=== PATIENT | male | born 1960 | race Caucasian/White ===

== ENCOUNTER 2024-01-12 09:59 | Outpatient (CLI) | payer BC, SELFPAY ==
[2024-01-12 10:37] LABS: Hematocrit 43.1 % (42.0-52.0); Hemoglobin 14.7 g/dL (14.0-18.0); Immature Platelet Fraction Pct 10.3 % (0.9-11.2); Mean Corpuscular HGB Conc 34.1 g/dl (32-36); Mean Corpuscular Hemoglobin 34.9 pg (26-34); Mean Corpuscular Volume 102.4 fl (80-100); Platelet Count Result 106 k/mm3 (150-375); Red Blood Count 4.21 M/mm3 (4.6-6.20); Red Cell Distribution Width 18.6 % (11.5-14.5); White Blood Count 13.5 K/mm3 (4.5-10.0)
[2024-01-12 10:47] LABS: Anisocytosis 1+; Band Neutrophils Percent 6 % (0-6); Lymphocytes Absolute Manual 2.16 K/mm3 (1.1-4.5); Monocytes Percent Manual 3 % (3-9); Neutrophils Absolute Manual 10.93 K/mm3 (1.3-6.7); Neutrophils Percent Manual 75 % (46-73); Nucleated Red Blood Cells 1 %; Platelet Estimate Decreased (Adequate); Schistocytes None Seen; Total Cells Counted 100
[2024-01-12 10:48] LABS: Microcytosis 1+ (NORMAL)
[2024-01-12 11:16] LABS: Anion Gap 13 mmol/L (4-12); Blood Urea Nitrogen 14 mg/dL (9-20); Calcium 9.2 mg/dL (8.4-10.2); Carbon Dioxide 22 mmol/L (22-30); Chloride 93 mmol/L (98-107); Estimated Glomerular Filt Rate 47; Glucose 78 mg/dL (65-110); Potassium 4.1 mmol/L (3.4-5.0); Sodium 128 mmol/L (137-145)
== END 2024-01-12 10:00 | disposition home or self-care (01) ==
LOC: ANHLAB 10:07
PROVIDERS: Visit Provider Internal Medicine Hematology & Oncology
DX: D72.829 Elevated white blood cell count, unspecified (principal); D45 Polycythemia vera
CPT/HCPCS: 36415; 80048; 85025; 85055; 88184

== ENCOUNTER 2024-02-11 03:15 | Day surgery (SDC) | payer BC, SELFPAY ==
[2024-02-10 15:59] VITALS: BMI 27.5
--- NOTE | ~2024-02-11 | BM_ITS ---
EXAMINATION: CCL bone marrow asp w bx diag ORDER COMPLETED DATE: 02/11/2024 10:20 INDICATION: Leukocytosis TECHNIQUE: A time-out was performed to verify the patient's name, date of , and procedure to b e performed. The procedure including the risks and benefits was discussed with the patient. Risks dis cussed included bleeding, infection, nerve injury and allergic reaction. The patient understood the r isks and agreed to proceed. The skin overlying the right posterior iliac spine was prepped and draped in usual sterile fashion. Anesthetic was administered with 1% lidocaine subcutaneously. Moderate co nscious sedation was achieved with 50 mcg fentanyl IV. An 11 gauge needle was inserted into the left ilium with fluoroscopic guidance. Bone marrow was aspirated. An 8 gauge needle was then inserted into the left ilium with fluoroscopic guidance. A core bone marrow biopsy was obtained. The needle was re moved and the entry site was cleaned and dressed. There were no immediate complications. A total of 7 fluoroscopic images were recorded. Fluoroscopy exposure time was 0.1 minutes. Total DAP was 105 mGy cm^2 FINDINGS: Real-time fluoroscopy demonstrates the biopsy needle tip overlying the left posterior iliac spine. IMPRESSION: 1. Successful fluoroscopic guided bone marrow aspiration. 2. Successful fluoroscopic guided bone marrow biopsy. Reviewed, dictated and finalized at location A.
[2024-02-11 08:58] VITALS: BP 134/67; PULSE 56; RESP 12; TEMP 36.5; O2SAT 100
[2024-02-11 09:12] LABS: Hematocrit 38.5 % (42.0-52.0); Hemoglobin 13.2 g/dL (14.0-18.0); Mean Corpuscular HGB Conc 34.3 g/dl (32-36); Mean Corpuscular Hemoglobin 34.4 pg (26-34); Mean Corpuscular Volume 100.3 fl (80-100); Mean Platelet Volume 10.2 fl (7.4-10.4); Platelet Count Result 237 k/mm3 (150-375); Red Blood Count 3.84 M/mm3 (4.6-6.20); Red Cell Distribution Width 17.5 % (11.5-14.5); White Blood Count 13.4 K/mm3 (4.5-10.0)
[2024-02-11 09:21] LABS: INR 1.3; Prothrombin Time 16.2 Seconds (11.1-14.7)
--- NOTE | 2024-02-11 09:48 | WPDMODSED ---
Moderate Sedation Note-Pt Data Patient Data Diagnosis: thrombocytopenia Present Complaint: thrombocytopenia Procedure to be performed/Plan: bone marrow biospy Allergies Allergy/AdvReac Type Severity Reaction Status Date / Time Sulfa (Sulfonamide Allergy Unknown Unknown Verified 10/29/17 09:50 Antibiotics) sulfamethizole Allergy Unknown Unknown Verified 10/29/17 09:50 trimethoprim Allergy Unknown Unknown Verified 10/29/17 09:50 Home Medications Medication Instructions Recorded Confirmed Type amlodipine 10 mg tablet 10 mg PO DAILY 02/10/24 02/10/24 History lisinopril 10 mg tablet 10 mg PO DAILY 02/10/24 02/10/24 History metoprolol tartrate 50 mg tablet 50 mg PO BID 02/10/24 02/10/24 History zolpidem 10 mg tablet 10 mg PO QHS 02/10/24 02/10/24 History Sedation/Anesthesia: No previous sedation/anesthesia problems (including family history). [facility] Social History Social History Smoking status: Unknown if ever smoked Alcohol intake: unknown Substance use: never Substance use type: does not use Mod Sed Physical Exam Physical Exam Pre Procedural Exam: Normal: Appearance, Airway, Lungs, Heart Rate and Heart Rhythm Hours since solid foods: 11 Hours since liquid intake: 11 Mallampati Classification: class III Internal Medicine - PN: Obj Da Vital Signs Vital Signs: Vital Signs - 24 hr 02/11/24 08:58 Temperature 97.7 F Pulse Rate 56 L Respiratory Rate 12 Blood Pressure 134/67 Pulse Oximetry 100 Oxygen Delivery Room Air Labs 02/11/24 08:54 Labs: Laboratory Results - last 24 hr 02/11/24 08:54 WBC 13.4 H RBC 3.84 L Hgb 13.2 L Hct 38.5 L MCV 100.3 H MCH 34.4 H MCHC 34.3 RDW 17.5 H Plt Count 237 D MPV 10.2 Immature Gran % (Auto) Not Reportable Neut % (Auto) Not Reportable Lymph % (Auto) Not Reportable [place] % (Auto) Not Reportable Eos % (Auto) Not Reportable Baso % (Auto) Not Reportable Lymph # (Auto) Not Reportable [place] # (Auto) Not Reportable Eos # (Auto) Not Reportable Baso # (Auto) Not Reportable Abs Immat Gran (auto) Not Reportable Absolute Neuts (auto) Not Reportable Absolute Nucleated RBC Not Reportable Nucleated RBC % Not Reportable PT 16.2 H INR 1.3 ASA Classification/Sedation ASA Classification/Sedation ASA Class: II Emergent: No Risks: Risks, benefits and alternatives explained and patient/family accepted plan for sedation. Patient re-evaluated immediately prior to sedation.
[2024-02-11 10:15] VITALS: BP 136/67; PULSE 64; RESP 19; O2SAT 100
[2024-02-11 10:24] LABS: Band Neutrophils Percent 5 % (0-6); Lymphocytes Percent Manual 12 % (18-44); Monocytes Absolute Manual 0.67 K/mm3 (0.1-0.90); Monocytes Percent Manual 5 % (3-9); Neutrophils Absolute Manual 10.31 K/mm3 (1.3-6.7); Neutrophils Percent Manual 72 % (46-73); Total Cells Counted 100
[2024-02-11 10:25] LABS: Anisocytosis 1+; Atypical Lymphocytes Present; Basophils Absolute Manual 0.53 K/mm3 (0.0-0.1); Basophils Percent Manual 4 % (0-1); Eosinophils Absolute Manual 0.13 K/mm3 (0.02-0.50); Eosinophils Percent Manual 1 % (0-4); Hypochromasia 1+; Platelet Estimate Adequate (Adequate); Promyelocytes Percent 1 %; Schistocytes None Seen
[2024-02-11 10:30] VITALS: BP 119/62; PULSE 61; RESP 14; O2SAT 100
[2024-02-11 10:45] VITALS: BP 122/65; PULSE 62; RESP 14; O2SAT 100
[2024-02-11 11:00] VITALS: BP 136/66; PULSE 61; RESP 13; O2SAT 100
== END 2024-02-11 11:25 | disposition home or self-care (01) ==
PROVIDERS: PCP Registered Nurse; Referring Provider Internal Medicine Hematology & Oncology; Visit Provider Radiology Diagnostic Radiology
DX: D47.1 Chronic myeloproliferative disease (principal)
CPT/HCPCS: 36415; 38222; 85025; 85610; 88305; 88311; 88313; J1642; J3010; J7040

== ENCOUNTER 2025-01-18 08:25 | Outpatient (CLI) | payer BC, SELFPAY ==
--- NOTE | ~2025-01-18 | US_ITS ---
EXAMINATION: US abdomen complete, 01/18/2025 8:28 CDT HISTORY: Elevated liver enzymes COMPARISON: None Technique: Lazo-scale and color Doppler images were obtained. Findings: LIVER: Mild increased echogenicity of the liver. The liver appears nodular. . GALLBLADDER/BILIARY: Minimal cholelithiasis however normal thickening or pericholecystic fluid. CBD 3.6 mm. [place] sign negative. PANCREAS: Pancreas limited by bowel gas. SPLEEN: Spleen is enlarged measuring 21 cm.. KIDNEYS: Right Kidney: Right kidney 10 x 5 x 5.7 cm, normal. Left Kidney: Left kidney 10.8 x 4.1 x 4.3 cm, normal. AORTA: Normal caliber aorta. IVC: Unremarkable. FREE FLUID: Moderate ascites noted.. Impression: 1. Mild cirrhotic disease of the liver suspected with ascites. Correlate with LFTs. MRI may be of benefit. 2. Minimal cholelithiasis with wall thickening which may be reactive, there is concern for acute cholecystitis nuclear medicine HIDA scan suggested. 3. Splenomegaly Reviewed, dictated and finalized at location A. Impression: 1. Mild cirrhotic disease of the liver suspected with ascites. Correlate with L FTs. MRI may be of benefit. 2. Minimal cholelithiasis with wall thickening which may be reactive, there is concern for acute cholecystitis nuclear medicine HIDA scan suggested. 3. Splenomegaly
== END 2025-01-18 08:26 | disposition home or self-care (01) ==
LOC: MICIMG 08:26
PROVIDERS: PCP Registered Nurse; Visit Provider Internal Medicine Hematology & Oncology
DX: R74.8 Abnormal levels of other serum enzymes (principal); R16.1 Splenomegaly, not elsewhere classified
CPT/HCPCS: 76700

== ENCOUNTER 2025-01-25 13:12 | Outpatient (CLI) | payer BC, SELFPAY ==
--- OUTSIDE RECORDS SUMMARY | 2025-01-25 11:15 | XMS_ITS | Encounter Summary ---
Author Organization [facility] Address [address] [place] [address] Care Team Providers Care Metal Pickling Equipment Operator Name Role Phone Unavailable Primary Care Provider Unavailabl e Reason for Referral * Eval and Treat (Routine) - Open Specialty Diagnoses / Procedures Referred By Farrah t Referred To Contact Nephrology Diagnoses Renal insufficiency Procedures NV OFFICE/OUTPATIENT ESTABLISHED MOD MDM 30 MIN NV OFFICE/OUTPATIENT NEW MODERATE MDM 45 MINUTES Efren Serrano MD [address] [place] [phone] Phone: tel: fax: Art Donohue MD [address] [facility] [address] [place] [address] Phone: tel: fax: Referral ID Status Reason Start Date Expiration Date V isits Requested Visits Authorized [id number] Open STL CTS 01/25/2025 01/25/2026 1 1 * Laboratory Services (Routine) - Open Specialty Diagnoses / Procedures Referred By Farrah t Referred To Contact Diagnoses Leukocytosis, unspecified type Procedures BCR/ABL1, QUANTITATIVE W/REFLEX Efren Serrano MD [address] [place] [address] Phone: tel: fax: Referral ID Status Reason Start Date Expiration Date Visits Re quested Visits Authorized [id number] Open 01/25/2025 02/25/2026 1 1 Reason for Visit * Reason Comments Follow Up Encounter Details Date Type Department Care Team (Late st Contact Info) Description 01/25/2025 11:15 AM CDT Office Visit [facility] Oncology and Hematology - [place] [address] [facility] [address] [place] [address] Efren Serrano MD [address] [facility] [address] [place] [address] Leukocytosis, unspecified type (Primary Dx); Renal insufficiency Social History Tobacco Use Types Packs/Day Years Used Date Smoking Tobacco: Former Cigarettes Q uit: 12/23/1997 Smokeless Tobacco: Never Tobacco Cessation:Counseling Given: Not Answered Alcohol Use Standard Drinks/Week Comments Yes 0 (1 standard drink = 0.6 oz pur e alcohol) Sex and Gender Information Value Date Recorded Sex Assigned at Not on file 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 Gender Identity Not on file Sexual Orientation Not on file documented as of this encounter Last Filed Vital Signs Vital Sign Reading Time Taken Comments Blood Pressure 113/73 01/25/2025 11:39 AM CDT Pulse 55 01/25/2025 11:39 AM CDT Temperature 36.2 C (97.1 F) 01/25/2025 11:39 AM CDT Respiratory Rate 16 01/25/2025 11:3 9 AM CDT Oxygen Saturation 93% 01/25/2025 11: 39 AM CDT Inhaled Oxygen Concentration - - Weight 101.4 kg (223 lb 9.6 oz) 025 11:39 AM CDT Height - - Body Mass Index 27.95 11/07/2021 11:03 AM CDT documented in this encounter Progress Notes * Efren Serrano MD - 01/25/2025 1:04 PM CDT HEMATOLOGY / ONCOLOGY PROGRESS NOTE Patient Identification: Name: Len Lynn Age: 64 y.o. Sex: male : 1960 DIAGNOSIS Essential thrombocythemia with Tor 2 mutation positive CURRENT TREATMENT Surveillance TREATMENT HISTORY Hydroxyurea started April 2018. Discontinued December 2023 due to low platelet count Bone marrow aspiration and biopsy done on February 11, 2024 showed no evidence of acute leukemia. 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 SUBJECTIVE Patient came to the office for follow-up visit. Since the last discharge patient has lost appetite and gained some weight. He was hospitalized in November and had colonoscopy and CT scan done. He is quite tired and lethargic. Denies any bleeding and bruising. He was restarted on hydroxyurea 6 weeks agoin the hospital. No other new complaints. Review of system Constitutional: denies fevers, sweats, complain of tiredness and fatigue HEENT: denies sinus congestion, hearing or vision problems Respiratory: denies cough, dyspnea, wheeze Cardiovascular: denies chest pain, exertional chest pressure/discomfort, nausea, syncope, shortnessof breath GI: denies constipation, diarrhea, dsyphagia, reflux symptoms, vomiting, melena : denies dysuria, frequency, incontinence, urgency Integumentary system: no lymphadenopathy, sweats, flushing Musculoskeletal: Denies any musculoskeletal discomfort Neurological: denies blurry or disturbed vision, numbness/weakness, dizziness Skin: No lumps, denies any rash 12 point review of system was reviewed Objective: Vital signs in last 24 hours: As per nursing note Exam: General appearance: alert, cooperative, no distress, appears stated age Head: normocephalic, without obvious abnormality, atraumatic Eyes: conjunctivae/corneas clear, EOM's intact Ears: normal external ear canals AU Nose: Nares normal. Septum midline. Mucosa normal. No drainage or sinus tenderness Throat: Lips, mucosa, and tongue normal. Teeth and gums normal Neck: supple, symmetrical, trachea midline. Lungs: clear to auscultation bilaterally Heart: regular rate and rhythm, S1, S2 normal, no murmur, click, rub or gallop Abdomen: soft, non-tender. Bowel sounds normal. No masses, No organomegaly Extremities: extremities normal, atraumatic, no cyanosis or edema Skin: Skin color, texture, turgor normal. No rashes or lesions Lymph nodes: No lymphadenopathy Neuro: No obvious focal deficit Exam as above LABS Labs from March 04 showed WBC 6.5 hemoglobin 18.9 hematocrit 53.1 platelet 325,000. Labs from September 03 showed WBC 7.8 hemoglobin 14.3 hematocrit 40.9 platelet 505,000. Labs from March 08 showed creatinine 1.3 WBC 6.1 hemoglobin 14.8 platelet 302,000 Labs from September 24, 2020 showed WBC 5.2 hemoglobin 15.7 platelet 432,000. Labs from March 21 showed creatinine 1.2 total bilirubin 3.7 AST 39 WBC 5.5 hemoglobin 15.5 hematocrit 43 platelet 318,000. Labs from November 05 showed creatinine 1.4 WBC 7.9 hemoglobin 17.1 hematocrit 50.2 platelet 487,000. Labs from May 14 showed creatinine 1.48 total bilirubin 1.5 hematocrit 42.9 platelet 520,000 Labs from November 18 showed creatinine 1.1 WBC 4.2 hemoglobin 15.7 hematocrit 46 platelet 290,000 We will labs from May 15 showed platelet 241,000 hemoglobin 13.5 bilirubin 1.9 AST and ALT normal. Labs from December 17 showed creatinine 1.2 total bilirubin 2.2 sodium 127 WBC 12.7 hemoglobin 13.7 hematocrit 42.2 platelet 138,000 absolute neutrophil count 8039 elevated metamyelocyte of 127 myelocyte of 521 and basophil of 775 Labs from January 03 showed BCR ABL translocation not detected WBC 13.5 hemoglobin 14.7 platelet 106,000 neutrophils 75% lymphocyte 16% bands 6% monocyte 3% Labs from June 03. Creatinine 1.4 hemoglobin 13 WBC 15 platelet 240,000 Labs from September 22 showed WBC 12.8 hemoglobin 12.3 platelet 157,000 there was 1 blast bilirubin 3.2 ferritin 138 LDH 523 B12 667 Labs from January 20 showed creatinine 2.0 hemoglobin 8.9 WBC 23.6 platelet 362,000 neutrophils 67% band 1 Assessment: Plan: Patient Active Problem List Diagnosis Date Noted PV (polycythemia vera) ([facility]/HCC) 09/07/2019 Thrombocytosis 12/23/2017 Essential thrombocythemia with Tor 2 mutation positive. Hydroxyurea has been discontinued on December 2023 due to low platelet count. BCR-ABL translocation not detected. Flow cytometric analysis showed 2% myeloblasts. Bone marrow aspiration and biopsy done on February 11, 2024 showed no evidence of acute leukemia. 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 Events noted. He was hospitalized in November and restarted on hydroxyurea at that time. He is quite tired and fatigued. Labs showed normal platelet counts but significant worsening of anemia and leukocytosis. Patient had CT abdomen and pelvis done on December 01 that showed massive splenomegaly as well asmild hepatomegaly and no intra-abdominal lymphadenopathy. I will repeat BCR-ABL translocation testing by PCR. I will also order bone marrow aspiration and biopsy. I will hold on hydroxyurea due to worsening of anemia and renal insufficiency. Follow-up with 2 weeks with repeat labs. I also discussedstarting him on Jakafi due to massive splenomegaly and discomfort. Renal insufficiency. I will refer him to Dr. Donohue for workup. Elevated liver enzyme. CT scan showed new mild hepatomegaly and massive splenomegaly. Abdominal ultrasound from January 18 showed mild cirrhotic disease. Patient has a history of drinking alcohol but has cut down. Polycythemia. Resolved. Follow-up in 2 weeks. 01/25/2025 Efren Serrano MD documented in this encounter Plan of Treatment Upcoming Encounters Date Type Department Care Team (Late st Contact Info) Description 02/09/2025 11:15 AM CDT Office Visit [facility] Oncology and Hematology - [place] [address] [facility] [address] [place] [address] Efren Serrano MD [address] [facility] [address] [place] [address] Scheduled Orders Name Type Priority Associated Diagnoses Orde r Schedule BCR/ABL1, QUANTITATIVE W/REFLEX Lab Routine Leukocytosis, unspecified type Expected: 01/25/2025, Expires: 01/25/2026 BONE MARROW ASPIRATION & BIOPSY Procedures Routine Leukocytosis, unspecified type Expected: 02/01/2025, Expires: 02/24/2025 CBC WITH DIFFERENTIAL Lab Stat Leukocytosis, unspecified type Expected: 02/08/2025, Expires: 01/25/2026 BASIC METABOLIC PANEL Lab Stat Leukocytosis, unspecified type Expected: 02/08/2025, Expires: 01/25/2026 Scheduled Referrals Name Type Priority Associated Diagnoses Orde r Schedule AMB REFERRAL TO NEPHROLOGY Outpatient Referral Routine Renal insufficiency Ordered: 01/25/2025 documented as of this encounter Visit Diagnoses Diagnosis Leukocytosis, unspecified type- Primary Renal insufficiency Unspecified disorder of kidney and ureter documented in this encounter
--- OUTSIDE RECORDS SUMMARY | 2025-01-25 13:23 | XMS_ITS | Encounter Summary ---
Author Organization [facility] Address [address] [place] [address] Care Team Providers Care Jig Fitter Name Role Phone Unavailable Primary Care Provider Unavailabl e Encounter Details Date Type Department Care Team ([facility] Contact Info) Description 01/20/2025 Orders Only [facility] Oncology and Hematology [place] [address] [place] [address] Efren Serrano MD [address] [place] [address] [place] [phone] Social History Tobacco Use Types Packs/Day Years Used Date Smoking Tobacco: Former Cigarettes Q uit: 12/23/1997 Smokeless Tobacco: Never Alcohol Use Standard Drinks/Week Comments Yes 0 (1 standard drink = 0.6 oz pur e alcohol) Sex and Gender Information Value Date Recorded Sex Assigned at Not on file 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 Gender Identity Not on file Sexual Orientation Not on file documented as of this encounter Plan of Treatment Upcoming Encounters Date Type Department Care Team (Late st Contact Info) Description 02/09/2025 11:15 AM CDT Office Visit [facility] Oncology and Hematology - [place] [address] [place] [address] Efren Serrano MD [address] [place] [address] [place] [phone] documented as of this encounter Procedures Procedure Name Priority Date/Time Associated Diagnosis Comments US ABDOMEN COMPLETE Routine 01/18/2025 8:03 AM CDT documented in this encounter Results * US ABDOMEN COMPLETE (01/18/2025 8:03 AM CDT) Anatomical Region Laterality Modality Abdomen Ultrasound us Efren Serrano MD US ORDERABLES Final Result documented in this encounter Visit Diagnoses Not on filedocumented in this encounter
--- OUTSIDE RECORDS SUMMARY | 2025-01-25 13:23 | XMS_ITS | Encounter Summary ---
Author Organization [facility] Address [address] [place] [address] Care Team Providers Care Mining Detail Draftsperson Name Role Phone Unavailable Primary Care Provider Unavailabl e Reason for Visit * Reason Comments Medication Refill Encounter Details Date Type Department Care Team ([facility] Contact Info) Description 09/20/2018 Refill [facility] Oncology and Hematology [place] [address] [place] [address] Efren Serrano MD [address] [place] [address] [address] [place] [phone] Social History Tobacco Use Types Packs/Day Years Used Date Smoking Tobacco: Former Cigarettes Q uit: 12/23/1997 Smokeless Tobacco: Never Alcohol Use Standard Drinks/Week Comments Yes 0 (1 standard drink = 0.6 oz pur e alcohol) Sex and Gender Information Value Date Recorded Sex Assigned at Not on file 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
--- OUTSIDE RECORDS SUMMARY | 2025-01-25 13:23 | XMS_ITS | Encounter Summary ---
Author Organization [facility] Address [address] [place] [address] Care Team Providers Care Drying Oven Tender Name Role Phone Unavailable Primary Care Provider Unavailabl e Encounter Details Date Type Department Care Team (Late st Contact Info) Description 07/31/1999 Outpatient Historical HIS [facility] DR. JUNG (Excluded Provider) Brady Jung MD [address] [place] [phone] Social History Tobacco Use Types Packs/Day Years Used Date Smoking Tobacco: Never Assessed Sex and Gender Information Value Date Recorded Sex Assigned at Not on file Legal Sex Male 5:12 AM SHIFT BOSS Gender Identity Not on file Sexual Orientation Not on file documented as of this encounter Plan of Treatment Upcoming Encounters Date Type Department Care Team (Late st Contact Info) Description 02/09/2025 11:15 AM CDT Office Visit [facility] Oncology and Hematology - [place] [address] [facility] [address] [place] [address] fEren Serrano MD [address] [facility] [address] [place] [address] documented as of this encounter Visit Diagnoses Not on filedocumented in this encounter
--- OUTSIDE RECORDS SUMMARY | 2025-01-25 13:23 | XMS_ITS | Encounter Summary ---
Author Organization [facility] Address [address] [place], [place] [address] [address] Care Team Providers Care Barrel Painter Name Role Phone Unavailable Primary Care Provider Unavailabl e Encounter Details Date Type Department Care Team (Late st Contact Info) Description 02/11/2024 Lab Requisition 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 - Received: 02/11/2024 11:59 AM Pathology Lab Pathologist: Murphy Mcdowell MD Specimen: Bone Marrow, Left Hip 02/11/2024 2:39 PM CDT [facility] PATH[facility]Y [facility] Final Diagnosis Bone marrow, flow cytometric immunophenotypic analysis: - No diagnostic evidence of clonal B-cells or expanded T-cells, or acute leukemia. - See interpretation. 02/11/2024 2:39 PM [facility] PATHOLOGY LAB at 1439 CDT Flow Cytometry Interpretation Viability: 100% B-cells: Rare, polytypic, kappa:lambda ratio 0.76:1 T-cells: Present based on CD5 expression, and not further characterized Blasts: Rare detected, 1.6%, express CD34, CD33, CD13; negative for CD10, CD19, and CD20 Plasma cells: No significant population detected A bone marrow aspirate smear prepared from the flow cytometry specimen has been reviewed for water quality manager purposes. 02/11/2024 2:39 PM [facility] PATHOLOGY LAB Flow Cytometry Results Differential Result Comment Flow Cell Count /uL 16,800 Total Viability % 100.0 Lymphocytes % 6 Dim CD45 Region % 6 Monocytes % 3 Granulocytes % 85 02/11/2024 2:39 PM [facility] PATHOLOGY LAB Reason for test Elevated white blood cell count, unspecified 02/11/2024 2:39 PM [facility] PATHOLOGY LAB Client Specimen ID # [id number] 02/11/2024 2:39 PM [facility] PATHOLOGY LAB Number of markers 10 were performed. A-2 Flow CD10 A-3 Flow CD13 A-5 Flow CD20 A-1 Flow CD5 A-4 Flow CD19 A-6 Flow CD33 A-7 Flow CD34 A-8 Flow CD45 A-9 [place]+CD19+ A-10 Lambda+CD19+ 02/11/2024 2:39 PM [facility] PATHOLOGY LAB Pathologist Location at [facility] 02/11/2024 2:39 PM [facility] PATHOLOGY LAB Disclaimer Test performed at [facility], [address] [place] [address], [address]. *The established laboratory minimum viability is 70%. Values below the minimum may result in the failure to find an abnormal population of cells. This test was developed and its performance characteristics determined by the Flow Cytometry Laboratory. It has not been cleared by the [place] Food and Drug Administration (FDA). The FDA has determined that such clearance or approval is not necessary. This test is used for clinical purposes. It should not be regarded as investigational or for research. This laboratory is regulated under the Clinical Laboratory Improvement Amendments of 1998 (CLIA) as a qualified to perform high complexity clinical testing. 02/11/2024 2:39 PM CDT [facility] PATHOLOGY LAB Embedded Images 2:39 PM CDT [facility] PATHOLOGY LAB Pathology/Cytolo gy BONE MARROW SPECIMEN / Unknown 02/11/2024 10:05 AM CDT 02/11/2024 11:59 AM CDT Howard Montaño MD LAB - PATHOLOGY/CYT OLOGY ORDERABLES Final Result [facility] PATHOLOGY LAB [address] [place], [place] [id number] [place] [address] documented in this encounter Visit Diagnoses Diagnosis Elevated white blood cell count, unspecified documented in this encounter
--- OUTSIDE RECORDS SUMMARY | 2025-01-25 13:23 | XMS_ITS | Encounter Summary ---
Author Organization [facility] Address [address] [place] [address] Care Team Providers Care Powder Room Attendant Name Role Phone Unavailable Primary Care Provider Unavailabl e Encounter Details Date Type Department Care Team ([facility] Contact Info) Description 01/23/2025 Orders Only [facility] Oncology and Hematology [address] [place] [address] Efren Serrano MD [address] [place] [address] [employer] [address] [place] [address] Social History Tobacco Use Types Packs/Day Years Used Date Smoking Tobacco: Former Cigarettes Q uit: 12/23/1997 Smokeless Tobacco: Never Alcohol Use Standard Drinks/Week Comments Yes 0 (1 standard drink = 0.6 oz pur e alcohol) Sex and Gender Information Value Date Recorded Sex Assigned at Not on file Legal Sex Male 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 Gender Identity Not on file Sexual Orientation Not on file documented as of this encounter Plan of Treatment Upcoming Encounters Date Type Department Care Team (Late st Contact Info) Description 02/09/2025 11:15 AM CDT Office Visit [facility] Oncology and Hematology - [address] [place] [address] Efren Serrano MD [address] [place] [address] [employer] [address] [place] [phone] documented as of this encounter Procedures Procedure Name Priority Date/Time Associated Diagnosis Comments BASIC METABOLIC PANEL Routine 01/20/2025 1:36 PM CDT documented in this encounter Results * BASIC METABOLIC PANEL (01/20/2025 1:36 PM CDT) Blood Efren Serrano MD CHEMISTRY ORDERABLES Final Resu lt documented in this encounter Visit Diagnoses Not on filedocumented in this encounter
--- OUTSIDE RECORDS SUMMARY | 2025-01-25 13:23 | XMS_ITS | Encounter Summary ---
Author Organization [facility] [employer] [facility] Address [address] [place] [address] Care Team Providers Care Peritoneal Dialysis Registered Nurse Name Role Phone Unavailable Primary Care Provider Unavailabl e Encounter Details Date Type Department Care Team (Late Contact Info) Description 01/25/2025 Orders Only [facility] Oncology and Hematology [address] [place] [address] Provider, Abstract NO ADDRESS ON FILE Social History Tobacco Use Types Packs/Day Years Used Date Smoking Tobacco: Former Cigarettes Q uit: 12/23/1997 Smokeless Tobacco: Never Alcohol Use Standard Drinks/Week Comments Yes 0 (1 standard drink = 0.6 oz pur e alcohol) Sex and Gender Information Value Date Recorded Sex Assigned at Not on file 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 Gender Identity Not on file Sexual Orientation Not on file documented as of this encounter Plan of Treatment Upcoming Encounters Date Type Department Care Team ([facility] Contact Info) Description 02/09/2025 11:15 AM CDT Office Visit [facility] Oncology and Hematology - [address] [place] [address] Efren Serrano MD [address] [facility] [address] [place] [address] documented as of this encounter Procedures Procedure Name Priority Date/Time Associated Diagnosis Comments FLOW CYTOMETRY REPORT Routine 12/05/2024 12:16 PM CDT documented in this encounter Results * FLOW CYTOMETRY REPORT (12/05/2024 12:16 PM CDT) us Abstract Provider PATHOLOGY/CYTOLOGY ORDERABLES Final Result documented in this encounter Visit Diagnoses Not on filedocumented in this encounter
--- OUTSIDE RECORDS SUMMARY | 2025-01-25 13:23 | XMS_ITS | Encounter Summary ---
Author Organization [facility] Address 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 [address] [place] [address] documented as of this encounter Visit Diagnoses Diagnosis Sciatica- Primary documented in this encounter
--- OUTSIDE RECORDS SUMMARY | 2025-01-25 13:23 | XMS_ITS | Encounter Summary ---
Author Organization [facility] Address [address] [place] [address] Care Team Providers Care Home Agent Name Role Phone Unavailable Primary Care Provider Unavailabl e Encounter Details Date Type Department Care Team (Late st Contact Info) Description 11/20/1998 Outpatient Historical HIS [facility] DR[facility] 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
--- OUTSIDE RECORDS SUMMARY | 2025-01-25 13:23 | XMS_ITS | Clinical Summary ---
Author Organization [facility] Address [address], [facility] [address] [place] [address] Phone Care Team Providers Care International Relations Professor Name Role Phone Sandra Bashir APRN, CNP Primary Care Provider + Sotero Garcias DO Unavailable [phone] Encounters Date Type Department Care Team Description 01/25/2025 Telephone [facility] [address] [address] Sotero Garcias, from Last 3 Months Social History Tobacco Use Types Packs/Day Years Used Date Smoking Tobacco: Never Assessed Sex and Gender Information Value Date Recorded Sex Assigned at Not on file Legal Sex Male 9:42 AM CDT Gender Identity Not on file Sexual Orientation Not on file Plan of Treatment Health Maintenance Due Date Last Done Comments Hepatitis C Virus (HCV) Screening 1960 TdaP Immunization 1959 Cologuard 2004 Immunochemical Fecal Occult Blood 2004 Pneumococcal Immunization (5 0+ years) (1 of 1 - PCV) 2009 Zoster Immunization (1 of 2) 2009 PSA Discussion 2014 Influenza Immunization (#1) 2025 SARS-COV-2 Immunization (3 - 2024- season) 2025 07/28/2020, 07/07/2020 Respiratory Syncytial Virus (RSV) Immunization (Adult) (1 - 1-dose 75+ series) 2034 Colonoscopy 10/04/2034 10/04/2024, 10/04/2024 Colorectal Cancer Screening 10/04/2034 Hepatitis B Immunization Aged Out No longer eligible based on patient's age to complete this topic Human Papillomavirus (HPV) Immunization Aged Out No longer eligible b ased on patient's age to complete this topic Meningococcal Immunization (ACWY) Aged Out No longer eligible b ased on patient's age to complete this topic Rotavirus Immunization Aged Out No lo nger eligible based on patient's age to complete [place] [address] MEDICARE [facility] Care Teams International Relations Professor Relationship Specialty Start Date End Date Sandra Bashir APRN, ADVISORY SOFTWARE ENGINEER [address] [place] [phone] PCP - General Family Medicine 12/02/24 Sotero Garcias DO [address] [place] [phone] Consulting Physician Oncology 12/05/24
--- OUTSIDE RECORDS SUMMARY | 2025-01-25 13:23 | XMS_ITS | Encounter Summary ---
Author Organization [facility] Address [address] [place] [address] Phone Care Team Providers Care Sales Center Manager Name Role Phone Sandra Bashir APRN, DARRICK Primary Care Provider + Sotero Garcias DO Unavailable [phone] Encounter Details Date Type Department Care Team (Late st Contact Info) Description 01/25/2025 Telephone [facility] [address] [place] [address] Sotero Garcias, [address] [place] [address] Social History Tobacco Use Types Packs/Day Years Used Date Smoking Tobacco: Never Assessed Sex and Gender Information Value Date Recorded Sex Assigned at Not on file Legal Sex Male 9:42 AM CDT Gender Identity Not on file Sexual Orientation Not on file documented as of this encounter Miscellaneous Notes * Telephone Encounter - Eva Jade RN - 01/25/2025 8:23 AM CDT Received call form patient leandra Ugarte not seen in our clinic, results are available through [facility]'s Medical Records. Advised patient to call [facility] Medical records or have Dr. Serrano's office request records for appointment * Telephone Encounter - Eva Jade RN - 01/25/2025 8:23 AM CDT Torito Lynn : 1960 # [id number] (, Negra) , Negra is calling. States that pt was @ [facility] from 12/01-12/06- States Dr. Garcias ordereda flow cytometry test while he was in the hospital. states that pt has an appt with Dr. Rojas @ 11:30, and they need that result for the test or he cannot be seen by today. Wanted to know if dr has results, and if they could fax it over to his office. Had additional questions. documented in this encounter Plan of Treatment Not on file documented as of this encounter Visit Diagnoses Not on filedocumented in this encounter Care Teams Sales Center Manager Relationship Specialty Start Date End Date Sandra Bashir APRN, STATE ASSESSED PROPERTIES DIRECTOR [address] [place] [id number] PCP - General Family Medicine 12/02/24 Sotero Garcias DO [address] [place] [phone] Consulting Physician Oncology 12/05/24 documented as of this encounter
--- OUTSIDE RECORDS SUMMARY | 2025-01-25 13:23 | XMS_ITS | Clinical Summary ---
Author Organization [facility] [employer] Address [address] [place] [address] [place] [address] Care Team Providers Care Surgeon/President Name Role Phone Unavailable Primary Care Provider Unavailabl e Source Comments [facility],non-owned Affiliates and Associated Physician Practices is amultiple site organization consisting of ambulatory clinics and hospital sitesin [place], [place], [place] and [place]. This disclosure is being madepursuant to the Care Everywhere program and may not contain all information available regarding this patient. 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 Gender Identity Not on file Sexual Orientation Not on file Plan of Treatment Health Maintenance Due Date Last Done Comments COLOGUARD (AGES 45-75) - COL ON CA SCREENING 1959 COLON MONITORING 1959 COLONOSCOPY - COLON CA SCREENING 1959 CT COLONOGRAPHY - COLON CA SCREENING 1959 Colorectal Cancer Screening 1959 FIT - COLON CA SCREENING 1959 FLEX SIG - COLON CA SCREENING 1959 LIPID TESTING 1959 COVID-19 VACCINE (#1) 1964 HIV SCREENING 1974 HEPATITIS C SCREENING 06/21/1977 DTAP/TDAP/TD VACCINES (1 - Tdap) 1978 PNEUMOCOCCAL VACCINE 50+ (1 of 2 - PCV) 1978 ZOSTER VACCINE (1 of 2) 1978 Respiratory Syncytial Virus (RSV) Vaccine Pt: or over 60 yrs (1 - Risk 60-74 years 1-dose series) 2019 DEPRESSION SCREENING 05/11/2024 INFLUENZA VACCINE (#1) 2025 HEPATITIS B VACCINE Aged Out No longe r eligible based on patient's age to complete this topic HIB VACCINE Aged Out No longer eligi ble based on patient's age to complete this topic HPV VACCINE Aged Out No longer eligi ble based on patient's age to complete this topic MENINGOCOCCAL (Group B) VACC INE SHARED DECISION-MAKING Aged Out No longer eligibl e based on patient's age to complete this topic MENINGOCOCCAL GROUPS A/C/Y/W VACCINE Aged Out No longer eligible b ased on patient's age to complete this topic Insurance [employer]
--- OUTSIDE RECORDS SUMMARY | 2025-01-25 13:23 | XMS_ITS | Encounter Summary ---
Author Organization [facility] [employer] [facility] Address [address] [place] [address] Care Team Providers Care Cutting Machine Fixer Name Role Phone Unavailable Primary Care Provider Unavailabl e Reason for Visit * Reason Onset Date Comments Labs for appt 01/25/2025 Encounter Details Date Type Department Care Team (Late st Contact Info) Description 01/25/2025 Telephone [facility] Oncology and Hematology - Carl [address] [facility] [address] [place] [address] Efren Serrano MD [address] [facility] [address] [place] [address] Labs for appt Social History Tobacco Use Types Packs/Day Years Used Date Smoking Tobacco: Former Cigarettes Q uit: 12/23/1997 Smokeless Tobacco: Never Alcohol Use Standard Drinks/Week Comments Yes 0 (1 standard drink = 0.6 oz pur e alcohol) Sex and Gender Information Value Date Recorded Sex Assigned at Not on file Legal 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 He states that he got it done at [facility] and that they were going to call and get the codes from us. I let him know that I did not get any calls from [facility] about needing a code. He states that he got it done whenhe was inpatient at [facility] but I am not able to see the results. He does not have the results and he can not find them. He seems very confused on where to get the results. He is also very confused on why I don't have the results. I have explained multiple times that we were not the ones that ordered the test for him while he was at [facility]. He has decided that he will come up to [place] to have the lab drawn and that we will have the results in a week. He still seems pretty confused on the reasoning behind things, but he states that he understands. documented in this encounter Plan of Treatment Upcoming Encounters Date Type Department Care Team (Late st Contact Info) Description 02/09/2025 11:15 AM CDT Office Visit [facility] Oncology and Hematology [facility] [address] [facility] [address] [facility] [address] [place] [address] Efren Serrano MD [address] [facility] [address] [place] [address] documented as of this encounter Visit Diagnoses Not on filedocumented in this encounter
--- OUTSIDE RECORDS SUMMARY | 2025-01-25 13:23 | XMS_ITS | Clinical Summary ---
Author Organization [facility] [employer] Address [address] [place] [address] Care Team Providers Care Floating Operator Name Role Phone Sandra Bashir Primary Care Provider + Allergies Active Allergy Reactions Criticality Noted Date Comments Sulfa (Sulfonamide Antibiotics) Hives,Rash Medium 07/11 Sulfamethoxazole-Trimethoprim Hives Medium 2020 Medications fluorouraciL (EFUDEX) 5 % cream Apply a pea size amount to the face twice a day 40 g 10/29/2021 Active amLODIPine (NORVASC) 5 mg tablet Take 5 mg by mouth daily 10/18/2021 Active famotidine (PEPCID) 20 mg tablet Take 1 tablet (20 mg total) by mouth 2 (two) times a day 03/31/2024 Active lisinopriL (PRINIVIL,ZESTR IL) 10 mg tablet Take 1 tablet (10 mg total) by mouth daily Active zolpidem (AMBIEN) 10 mg tablet Take 1 tablet (10 mg total) by mouth nightly as needed 03/27/2023 Active Active Problems Problem Noted Date Diagnosed Date Primary osteoarthritis of right knee 07/21/2024 Chronic pain of right knee 07/21/2024 Hypertension 07/01/2024 BRAD (obstructive sleep apnea) 07/01/2024 S/P AVR (aortic valve replacement) 07/01/2024 L1 vertebral fracture 08/10/2020 PV (polycythemia vera) 09/07/2019 Thrombocytosis 12/23/2017 Surgical History Surgery Date Site/Laterality Comments AORTIC VALVE REPLACEMENT KYPHOPLASTY Medical History Medical History Date Comments Thrombocytosis Hypertension Social History Tobacco Use Types Packs/Day Years Used Date Smoking Tobacco: Never Smokeless Tobacco: Never Tobacco Cessation:Counseling Given: Not Answered Sex and Gender Information Value Date Recorded Sex Assigned at Not on file Legal Sex Male 4:48 AM PSYCHOLOGIST COUNSELING Gender Identity Not on file Sexual Orientation Not on file Obstetrics History Last Filed Vital Signs Vital Sign Reading Time Taken Comments Blood Pressure 143/93 09/20/2024 10:23 AM CDT Pulse 102 09/20/2024 10:23 AM CDT Temperature - - Respiratory Rate - - Oxygen Saturation 100% 09/20/2024 10:23 AM CDT Inhaled Oxygen Concentration - - Weight 95.3 kg (210 lb) 07/01/2024 2:22 PM PSYCHOLOGIST COUNSELING Height 190.5 cm (6' 3) 07/01/2024 2:22 PM PSYCHOLOGIST COUNSELING Body Mass Index 26.25 07/01/2024 2:22 PM PSYCHOLOGIST COUNSELING Plan of Treatment Health Maintenance Due Date Last Done Comments Colon Cancer Screening-Colonoscopy 1959 Depression Screening 1959 Fall Risk Assessment 1959 Hepatitis C Screening 1959 Prostate Cancer Screening-PSA 1959 DTaP/Tdap/Td Vaccine (1 - Tdap) 1970 Hepatitis B Screening 1977 Pneumococcal vaccine 65+ (1 of 1 - PCV) 2009 Zoster Vaccine (1 of 2) 2009 Well Visit 65+ 2024 Covid-19 Vaccine ( season) 2025 02/15/2021, 07/28/2020, 07/07/2020 Influenza Vaccine (#1) [address] [place] [address] [facility] [place] [address] [employer] [place] [address] Care Teams Floating Operator Relationship Specialty Start Date End Date Sandra Bashir PA PCP - General Nurse Practitioner 09/02/21
--- OUTSIDE RECORDS SUMMARY | 2025-01-25 13:23 | XMS_ITS | Encounter Summary ---
Author Organization [facility] Address [address] [place] [address] Phone Care Team Providers Care Monotype Caster Name Role Phone Sandra Bashir Primary Care Provider + Encounter Details Date Type Department Care Team (Late st Contact Info) Description 07/23/2021 Orders Only [facility] Scanning, Provider Social History Tobacco Use Types Packs/Day Years Used Date Smoking Tobacco: Never Assessed Sex and Gender Information Value Date Recorded Sex Assigned at Not on file Legal Sex Male 4:48 AM STEAM CONDITIONER FILLING Gender Identity Not on file Sexual Orientation Not on file documented as of this encounter Plan of Treatment Not on file documented as of this encounter Procedures Procedure Name Priority Date/Time Associated Diagnosis Comments SCAN - PATHOLOGY 07/23/2021 documented in this encounter Results * SCAN - PATHOLOGY (07/23/2021) us Provider Scanning Final Result documented in this encounter Visit Diagnoses Not on filedocumented in this encounter Care Teams Monotype Caster Relationship Specialty Start Date End Date Sandra Bashir PA PCP - General Nurse Practitioner 09/02/21 documented as of this encounter
--- OUTSIDE RECORDS SUMMARY | 2025-01-25 13:23 | XMS_ITS | Encounter Summary ---
Author Organization [facility] Address [address] [place] [address] Care Team Providers Care Brick Picker Name Role Phone Unavailable Primary Care Provider Unavailabl e Reason for Visit * Reason Comments Medication Refill Encounter Details Date Type Department Care Team (Late st Contact Info) Description 01/03/2019 Refill [facility] Oncology and Hematology [address] [place] [address] Efren Serrano MD [facility] [address] [place] [address] Insomnia, unspecified type Social History Tobacco Use Types Packs/Day Years Used Date Smoking Tobacco: Former Cigarettes Q uit: 12/23/1997 Smokeless Tobacco: Never Alcohol Use Standard Drinks/Week Comments Yes 0 (1 standard drink = 0.6 oz pur e alcohol) Sex and Gender Information Value Date Recorded Sex Assigned at Not on file Legal Sex Male 5:12 AM HOSPICE ADMINISTRATOR Gender Identity Not on file Sexual Orientation Not on file documented as of this encounter Plan of Treatment Upcoming Encounters Date Type Department Care Team (Late st Contact Info) Description 02/09/2025 11:15 AM CDT Office Visit [facility] Oncology and Hematology Carl [address] [place] [address] Efren Serrano MD [address] [place] [address] documented as of this encounter Visit Diagnoses Diagnosis Insomnia, unspecified type documented in this encounter
--- OUTSIDE RECORDS SUMMARY | 2025-01-25 13:23 | XMS_ITS | Encounter Summary ---
Author Organization [facility] Address [address] [place], [place] [address] [address] Care Team Providers Care Order Processing Manager Name Role Phone Unavailable Primary Care Provider Unavailabl e Encounter Details Date Type Department Care Team (Late st Contact Info) Description 02/12/2024 Lab Requisition [facility] - Pathology Lab [address] [place] [address] Howard Montaño MD [address] [facility] [address] [place] [address] Illness, unspecified Social History Tobacco Use Types Packs/Day Years Used Date Smoking Tobacco: Never Assessed Sex and Gender Information Value Date Recorded Sex Assigned at Not on file 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 Gender Identity Not on file Sexual Orientation Not on file documented as of this encounter Plan of Treatment Not on file documented as of this encounter Procedures Procedure Name Priority Date/Time Associated Diagnosis Comments BONE MARROW BIOPSY (STL) Routine 02/11/2024 10:05 AM CDT Illness, unspecified documented in this encounter Results * BONE MARROW BIOPSY (STL) (02/11/2024 10:05 AM CDT) Case Report Bone Marrow Patholog y Report Case: [id number] Authorizing Provider: Howard Montaño Collected: 02/11/2024 10:05 AM MD Faustino Ordering Location: [facility] - Received: 02/12/2024 02:37 PM Pathology Lab Pathologist: Murphy Mcdowell MD Specimens: A) - Bone Marrow Clot B) - Bone Marrow Core 02/15/2024 2:09 PM CDT [facility] Final Diagnosis Bone marrow, aspirate, clot section, and core biopsy: - Myeloproliferative neoplasm, JAK2 mutation positive, consistent with essential thrombocythemia - Mildly hypercellular bone marrow for age (50% cellularity) - Trilineage hematopoiesis with maturation - No significantly increased fibrosis 02/15/2024 2:09 PM [facility] at 1409 CDT AP Comment The current bone marrow biopsy reveals changes consistent with myeloproliferative neoplasm/essential thrombocythemia. There are no significantly increased fibrosis, and no increased blasts. Clinical correlation, and correlation with pending ancillary studies recommended. 02/15/2024 2:09 PM [facility] Bone Marrow Aspirate Severely hemodiluted with no spicules. Scattered trilineage hematopoiesis are seen with maturation. There are no increased blasts. 02/15/2024 2:09 PM [facility] Bone Marrow Core Biopsy and Clot Section Description Specimen quality: Adequate, 12 mm of evaluable marrow. Cellularity: Variable, 50% on average, hypercellular. Blasts: Few, no aggregates, as highlighted by CD34 stain. Trilineage Hematopoiesis: Present. Myeloid to Erythroid ratio: Normal. Myeloid maturation and localization: Normal. Erythroid maturation and localization: Normal. Megakaryocyte number: Markedly increased in number including predominantly large hyperlobulated forms Megakaryocyte distribution: Loose clustering present. Lymphoid aggregates: None seen. Bone trabeculae: Thickened Blood vessels: Sinusoid are focally dilated with hematopoietic elements Plasma cells: Scattered seen. Reticulin stain and trichrome stain: No significant fibrosis Clot section marrow particles: Not present. Clot section morphology: Clot only. Storage iron (by special stain): Slightly decreased. Sideroblastic iron (by special stain): No ring sideroblasts seen. 02/15/2024 2:09 PM [facility] Flow Cytometry Summary Bone marrow, flow cytometric immunophenotypic analysis ([id number]): - No diagnostic evidence of clonal B-cells or expanded T-cells, or acute leukemia. 02/15/2024 2:09 PM [facility] Clinical History 63-year-old male with history of JAK2 positive myeloproliferative neoplasm/essential thrombocythemia. 02/15/2024 2:09 PM [facility] Materials Received Received are 18 slide(s) and 3 Blocks labeled [id number] along with a copy of the outside pathology report. [place] [address]. All original materials are returned to the referring institution, along with a copy of our final report. 02/15/2024 2:09 PM T [facility] Pathologist Location at [facility] 02/15/2024 2:09 PM CDT [facility] Disclaimer The performance characteristics of all immunohistochemical and indirect immunofluorescence stains (if any) cited in this report were determined by the [facility]opathology Laboratory of [facility]. Some of these tests were developed by our own laboratory and have not been cleared or approved by the US Food and Drug Administration. The FDA does not require this test to go through premarket FDA review. These tests are used for clinical purposes. They should not be regarded as investigational or for research. This laboratory is certified under the Clinical Laboratory Improvement Amendments (CLIA) as qualified to perform high complexity clinical laboratory testing. This case has been personally reviewed and interpreted by the attending (teaching) pathologist. 02/15/2024 2:09 PM CDT [facility] Embedded Images 02/15/2024 2:09 PM CDT [facility] Pathology/Cytology BONE MARROW SPECIMEN / Unknown 02/11/2024 10:05 AM CDT 02/12/2024 2:37 PM CDT Miscellaneous samples (specimen) BONE MARROW SPECIMEN / Unknown 02/11/2024 10:05 AM CDT 02/12/2024 2:37 PM CDT Howard Montaño MD LAB - PATHOLOGY/CYT OLOGY ORDERABLES Final Result [facility] [address] [place] [address], [facility] [phone] documented in this encounter Visit Diagnoses Diagnosis Illness, unspecified documented in this encounter
--- OUTSIDE RECORDS SUMMARY | 2025-01-25 13:23 | XMS_ITS | Encounter Summary ---
Author Organization [facility] Address [address] [place] [address] Care Team Providers Care Pump Attendant Name Role Phone Unavailable Primary Care Provider Unavailabl e Reason for Visit * Reason Onset Date Comments labs for appt 01/24/2025 Encounter Details Date Type Department Care Team (Late st Contact Info) Description 01/24/2025 Telephone [facility] Oncology and Hematology - Carl [address] [facility] [address] [place] [address] Efren Serrano MD [address] [facility] [address] [place] [address] labs for appt Social History Tobacco Use Types Packs/Day Years Used Date Smoking Tobacco: Former Cigarettes Q uit: 12/23/1997 Smokeless Tobacco: Never Alcohol Use Standard Drinks/Week Comments Yes 0 (1 standard drink = 0.6 oz pur e alcohol) Sex and Gender Information Value Date Recorded Sex Assigned at Not on file 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 He had labs drawn at [facility] but it does not look like they did the flow cytometry. We will need that back before his appointment. documented in this encounter Plan of Treatment Upcoming Encounters Date Type Department Care Team (Late st Contact Info) Description 02/09/2025 11:15 AM CDT Office Visit [facility] Oncology and Hematology - Carl [address] [facility] [address] [place] [address] Efren Serrano MD [address] [facility] [address] [place] [address] documented as of this encounter Visit Diagnoses Not on filedocumented in this encounter
--- OUTSIDE RECORDS SUMMARY | 2025-01-25 13:23 | XMS_ITS | Encounter Summary ---
Author Organization [facility] Address [address] [place] [address] Care Team Providers Care Shearer [employer] Name Role Phone Unavailable Primary Care Provider Unavailabl e Encounter Details Date Type Department Care Team (Late st Contact Info) Description 07/25/1999 Outpatient Historical [facility] DR[facility] 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
--- OUTSIDE RECORDS SUMMARY | 2025-01-25 13:23 | XMS_ITS | Clinical Summary ---
Author Organization [facility] Address [address] [facility] [place] [address] Care Team Providers Care Certified Ski Patroller Name Role Phone Unavailable Primary Care Provider Unavailabl e Allergies Active Allergy Reactions Criticality Noted Date Comments Sulfa (Sulfonamide Antibiotics) Hives,Rash High 12/09 Sulfamethoxazole-Trimethoprim Hives High 2020 Medications quinapril (ACCUPRIL) 40 mg tablet Take 40 mg by mouth daily. Active metoprolol tartrate (LOPRESSOR) 50 mg tablet Take 50 mg by mouth 2 times daily. Active triamcinolone acetonide (NASACORT AQ) 55 mcg nasal spray Administer 1 [place] in each nostril daily. Active acetaminophen (TYLENOL) 325 mg tablet TAKE 2 TABLETS BY MOUTH EVERY 4 HOURS NEEDED 08/13/19 21 Active hydrALAZINE (APRESOLINE) 25 mg tablet TAKE 1 TABLET BY MOUTH TWICE A DAY 09/05/19 21 Active amLODIPine (NORVASC) 5 mg tablet Take 10 mg by mouth daily. 04/18/20 22 Active zolpidem (AMBIEN) 10 mg tabletIndicatio ns:Insomnia, unspecified type TAKE 1 TABLET BY MOUTH NIGHTLY NEEDED FOR INSOMNIA 30 Tablet 01/19/20 25 Active zolpidem (AMBIEN) 10 mg tabletIndicatio ns:Insomnia, unspecified type TAKE 1 TABLET BY MOUTH NIGHTLY NEEDED FOR INSOMNIA 30 Tablet 12/16/19 25 025 Discontinued Active Problems Problem Noted Date Diagnosed Date PV (polycythemia vera) 09/07/2019 Thrombocytosis 12/23/2017 Encounters Date Type Department Care Team Description 01/25/2025 11:15 AM CDT Office Visit [facility] Oncology and Hematology - [address] [place] [phone] Efren Serrano MD Leukocytosis, unspecified type (Primary Dx); Renal insufficiency 01/25/2025 Orders Only [facility] Oncology and Hematology - Carl [address] [place] [phone] Provider, Abstract 01/25/2025 Telephone [facility] Oncology and Hematology - [address] Efren Serrano MD Labs for appt 01/24/2025 Telephone [facility] Oncology and Hematology - [address] Efren Serrano MD labs for appt 01/23/2025 Orders Only [facility] Oncology and Hematology - [address] [place] [phone] Efren Srerano MD 01/20/2025 Orders Only Initial Department [address] [facility] ATTN: [place] [address] Provider, Historical 01/20/2025 Orders Only [facility] Oncology and Hematology - [address] [place] [phone] Efren Serrano MD 01/16/2025 Refill [facility] Oncology and Hematology - [address] [place] [phone] Efren Serrano MD Insomnia, unspecified type 12/14/2024 Refill [facility] Oncology and Hematology - [address] [place] [address] Efren Serrano MD Insomnia, unspecified type 12/06/2024 Abstract [facility] Oncology and Hematology - [address] [place] [phone] Efren Serrano MD 12/01/2024 Abstract [facility] Oncology and Hematology Carl [address] [place] [address] Liam Flannery CMA 11/14/2024 Refill [facility] Oncology and Hematology Carl [address] [place] [address] Efren Serrano MD Insomnia, unspecified type from Last 3 Months Social History Tobacco Use Types Packs/Day Years Used Date Smoking Tobacco: Former Cigarettes Q uit: 12/23/1997 Smokeless Tobacco: Never Tobacco Cessation:Counseling Given: Not Answered Alcohol Use Standard Drinks/Week Comments Yes 0 (1 standard drink = 0.6 oz pur e alcohol) Sex and Gender Information Value Date Recorded Sex Assigned at Not on file 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 [address] [place] [address] Health Maintenance Due Date Last Done Comments Pre-Diabetes and Diabetes Screening 1959 DTAP/TDAP/TD VACCINES (1 - Tdap) 1978 FIT-DNA Q 3 years 2004 FIT/FOBT Q 1 year 2004 Flex Sig/CT Colonography Q 5 years 2004 PNEUMOCOCCAL VACCINE 50+ YEA RS (1 of 1 - PCV) 2009 ZOSTER VACCINE (1 of 2) 2009 Preventative Visit- Commercial 05/11/2024 INFLUENZA VACCINE (#1) 2024 COVID-19 Vaccine (3 - 2024- season) 2025, 07/07/2020 RSV VACCINE (60+ or ) (1 - 1-dose 75+ series) 2034 COLORECTAL SCREENING 10/04/2034 10/04/2024, 10/05/19 Colorectal Cancer Screening 10/04/2034 Abdominal Aortic Aneurysm (AAA) Screening Completed 01/18/2025, 01/04/2018 Procedures Procedure Name Priority Date/Time Associated Diagnosis Comments BASIC METABOLIC PANEL Routine 01/20/2025 1:36 PM CDT CBC WITH DIFFERENTIAL Routine 01/20/2025 9:23 AM CDT BASIC METABOLIC PANEL Routine 01/20/2025 9:23 AM CDT US ABDOMEN COMPLETE Routine 01/18/2025 8 :03 AM CDT FLOW CYTOMETRY REPORT Routine 12/05/2024 12:16 PM CDT from Last 3 Months Results * BASIC METABOLIC PANEL (01/20/2025 1:36 PM CDT) Only the most recent of2 resultswithin the time period is included. Blood us Efren Serrano MD CHEMISTRY ORDERABLES Final Resu lt * (ABNORMAL) CBC WITH DIFFERENTIAL (01/20/2025 9:23 AM CDT) WBC 23.6(H) 3.8 - 10.8 Thousand/ uL [facility] RBC 2.83(L) 4.20 - 5.80 Million/u L [facility] HEMOGLOBIN 8.9(L) 13.2 - 17.1 g/dL [facility] HEMATOCRIT 28.0(L) 38.5 - 50.0 % [facility] MCV 98.9 80.0 - 100.0 fL [facility] MCH 31.4 27.0 - 33.0 pg [facility] MCHC 31.8(L) 32.0 - 36.0 g/dL [facility] Comment: For adults, a slight decrease in the calculated MCHC value (in the range of 30 to 32 g/dL) is most likely not clinically significant; however, it should be interpreted with caution in correlation with other red cell parameters and the patient's clinical condition. RDW 19.0(H) 11.0 - 15.0 % [facility] PLATELETS 362 140 - 400 Thousand/ uL [facility] MPV 10.7 7.5 - 12.5 fL [facility] NEUTROPHIL ABSOLUTE 15,812(H) 1,500 - 7,800 cells/uL [facility] BANDS ABSOLUTE 236 0 - 750 cells/uL [facility] METAMYELOCYTE ABSOLUTE 1180(H) 0 cells/uL [facility] MYELOCYTE ABSOLUTE 1416(H) 0 cells/uL [facility] PROMYELOCYTE ABSOLUTE 708(H) 0 cells/uL [facility] LYMPHOCYTE ABSOLUTE 1,888 850 - 3,900 cells/uL [facility] MONOCYTE ABSOLUTE 472 200 - 950 cells/uL [facility] EOSINOPHIL ABSOLUTE 1,416(H) 15 - 500 cells/uL [facility] BASOPHILS ABSOLUTE 472(H) 0 - 200 cells/uL [facility] BLASTS ABSOLUTE 0 0 cells/uL [facility] NRBC 236(H) 0 cells/uL [facility] NEUTROPHIL 67 % [facility] BANDS 1 % [facility] METAMYELOCYTE 5(H) % [facility] MYELOCYTES 6(H) % [facility] PROMYELOCYTE 3(H) % [facility] LYMPHOCYTES 8 % [facility] MONOCYTE 2 % [facility] EOSINOPHILS 6 % [facility] BASOPHILS 2 % [facility] BLAST 0 % [facility] NRBC 1(H) 0 /100 WBC [facility] COMMENT HEMATOLOGY [facility] Comment: The smear has been manually reviewed and the manual differential has been reported. Review of the peripheral smear reveals adequate numbers of platelets. Giant platelets noted. Tear-drop cells 1 + Schistocytes 1 + Anisocytosis 2 + Mayte cells 1 + FASTING:YES AN UPDATE OR CORRECTION HAS BEEN MADE TO NAME FASTING: YES Test Performed at: [facility] [address] [address] [phone] SheilaToby Arellano Vo 01/20/2025 9:23 AM CDT 01/20/2025 9:34 AM CDT us Efren Serrano MD HEMATOLOGY ORDERABLES Final Res ult [facility] [phone] [facility] [place] [address] [place] [address] * US ABDOMEN COMPLETE (01/18/2025 8:03 AM CDT) Anatomical Region Laterality Modality Abdomen Ultrasound us Efren Serrano MD US ORDERABLES Final Result * FLOW CYTOMETRY REPORT (12/05/2024 12:16 PM CDT) us Abstract Provider PATHOLOGY/CYTOLOGY ORDERABLES Final Result from Last [address] [place] [address] [facility] [employer] [facility] [employer]
== END 2025-01-25 13:13 | disposition home or self-care (01) ==
LOC: ANHLAB 13:13
PROVIDERS: PCP Registered Nurse; Visit Provider Internal Medicine Hematology & Oncology
DX: D72.829 Elevated white blood cell count, unspecified (principal)
CPT/HCPCS: 81206; 81207

== ENCOUNTER 2025-02-21 01:09 | Day surgery (SDC) | payer BC, SELFPAY ==
--- OUTSIDE RECORDS SUMMARY | 2025-02-20 08:09 | XMS_ITS | Encounter Summary ---
Author Organization [facility] Address [address] [place] [address] Care Team Providers Care Hadoop Consultant Name Role Phone None, Provider MD Unavailable Unavailable Sandra Bashir Primary Care Provider Pam Fleming MD Unavailable [phone] Stuart Nelson MD Unavailable [phone] Joyce Berry Unavailable [phone] Encounter Details Date Type Department Care Team (Latest Contact Info) Description 02/20/2025 8:09 AM CDT - 02/20/2025 1:33 PM CDT Hospital Encounter [facility] [place] [place] [id number] Pam Fleming MD 3 [facility] [address] [place], [place] [phone] Arrived Discharge Disposition: Home or Self Care (Routine Discharge) Anesthesia Record Procedure Summary Procedure Name Responsible Anesthesiologist Anesthesia Start Time Anesthesia Stop Time XA TAVR Events No events on file. Meds * Agents No agents on file. * Blood No blood administrations on file. Lines, Drains, and Airways No LDAs on file. documented in this encounter Social History Tobacco Use Types Packs/Day Years Used Date Smoking Tobacco: Never Passive Smoke Exposure: Never Smokeless Tobacco: Never Tobacco Cessation:Counseling Given: Not Answered Alcohol Use Standard Drinks/Week Comments Not Currently 0 (1 standard drink = 0.6 oz pur e alcohol) [facility] Utilities Answer Date Recorded In the past 12 months has th e [employer], gas, oil, or water [employer] threatened to shut off services in your home? No 02/07/2025 Humiliation, Afraid, Rape, and Kick questionnair e Answer Date Recorded Within the last year, have y ou been afraid of your partner or ex-partner? No 02/07/2025 Within the last year, have y ou been humiliated or emotionally abused in other ways by your partner or ex-partner? No Within the last year, have y ou been kicked, hit, slapped, or otherwise physically hurt by your partner or ex-partner? No 02/07/2025 Within the last year, have y ou been raped or forced to have any kind of sexual activity by your partner or ex-partner? No 02/07/2025 AUDIT-C Answer Date Recorded Q1: How often do you have a drink containing alc ohol? Monthly or less 08/10/2020 Average Number of Drinks Not on file Frequency of Binge Drinking Not on file 06/2020 Overall Financial Resource Strain (CARDIA) Answe r Date Recorded How hard is it for you to pa y for the very basics like food, housing, medical care, and heating? Not hard at all 02/07/2025 PHQ-2 Answer Date Recorded Patient Health Questionnaire-2 Score 0 05/23/2022 Hunger Vital Sign Answer Date Recorded Within the past 12 months, y ou worried that your food would run out before you got the money to buy more. Never true 02/08/20 25 Within the past 12 months, t he food you bought just didn't last and you didn't have money to get more. Never true 02/07/2025 PRAPARE - Transportation Answer Date Re corded In the past 12 months, has l ack of transportation kept you from medical appointments or from getting medications? No 01/11 In the past 12 months, has l ack of transportation kept you from meetings, work, or from getting things needed for daily living? No 02/07/2025 Housing Stability Vital Sign Answer Holland e Recorded In the last 12 months, was t here a time when you were not able to pay the mortgage or rent on time? No 02/07/2025 In the past 12 months, how m any times have you moved where you were living? 0 02/07/2025 At any time in the past 12 m [facility], were you homeless or living in a nursing home (including now)? No 02/07/2025 Sex and Gender Information Value Date Recorded Sex Assigned at Male 06/22/2024 8:06 AM DONOR TECHNICIAN Legal Sex Male 7:43 PM CDT Gender Identity Male 06/22/2024 8:06 AM DONOR TECHNICIAN Sexual Orientation Not on file documented as of this encounter Last Filed Vital Signs Vital Sign Reading Time Taken Comments Blood Pressure 115/61 02/20/2025 8:00 AM CDT Pulse 83 02/20/2025 8:00 AM CDT Temperature - - Respiratory Rate 16 02/20/2025 8:00 AM CDT Oxygen Saturation 100% 02/20/2025 8:00 AM CDT Inhaled Oxygen Concentration - - Weight 96.2 kg (212 lb) 02/20/2025 8:00 AM CDT Height 190.5 cm (6' 3) 02/20/2025 8:00 AM CDT Body Mass Index 26.5 02/20/2025 8:00 AM CDT documented in this encounter Functional Status * Are you deaf or do you have serious difficulty hearing Answer Date of Assessment Author Status No 02/07/2025 9:58 PM CDT Cass Hollis R N Active * Are you blind or do you have serious difficulty seeing, even when wearing glasses? Answer Date of Assessment Author Status No 02/07/2025 9:58 PM CDT Cass Hollis R N Active * Do you have serious difficulty walking or climbing stairs? Answer Date of Assessment Author Status Yes 02/07/2025 9:58 PM CDT Cass Hollis R N Active * Do you have difficulty dressing or bathing? Answer Date of Assessment Author Status Yes 02/07/2025 9:58 PM CDT Cass Hollis R N Active * Because of a physical, mental, or emotional condition, do you have difficulty doing errands alone such as visiting a doctor's office or shopping? Answer Date of Assessment Author Status No 02/07/2025 9:58 PM CDT Cass Hollis R N Active documented as of this encounter Mental Status * Because of a physical, mental, or emotional condition, do you have serious difficulty concentrating, remembering, or making decisions? Answer Entry Date Author Status No 02/07/2025 9:58 PM CDT Cass Hollis R N Active documented in this encounter Medications at Time of Discharge calcium carbonate (TUMS) 500 MG chewable tablet Chew 1 tablet (500 mg total) by mouth daily as needed for Heartburn. furosemide (LASIX) 20 MG tabletIndications:D ilated Hypertrophic Cardiomyopathy Take 1 tablet (20 mg total) by mouth daily as needed (swelling, 3lb weight gain in 24 hours). Indications: Dilated Hypertrophic Cardiomyopathy 30 tablet 5 levothyroxine (SYNTHROID) 50 MCG tabletIndications:A cquired hypothyroidism Take 1 tablet (50 mcg total) by mouth every morning. 30 tablet 2 5 midodrine (PROAMATINE) 2.5 MG tabletIndications:H ypotension Take 1 tablet (2.5 mg total) by mouth 3 (three) times daily with meals. Indications: Disorder of Low Blood Pressure 90 tablet 1 5 potassium chloride CR (KLOR-CON M) 10 MEQ tabletIndications:H ypokalemia Take 1 tablet (10 mEq total) by mouth daily as needed (take only when you take a dose of prn lasix). Indications: Low Amount of Potassium in the Blood 30 tablet 5 triamcinolone acetonide (NASACORT) 55 MCG/ACT nasal inhaler 2 sprays by Each Nostril route nightly. zolpidem (AMBIEN) 10 MG tablet Take 1 tablet (10 mg total) by mouth nightly as needed for Sleep. 3 documented as of this encounter OR Notes * OR PreOp - Chandni Orlando RN - 02/20/2025 11:10 AM CDT Images from the original note were not included. Notified surgeon's nurse of abnormal labs from PAT. documented in this encounter Plan of Treatment Upcoming Encounters Date Type Department Care Team (Late st Contact Info) Description 02/16/2025 11:59 PM CDT Anesthesia Event [place] [facility] [place] [address] Basia Larkin, FOOT ROENTGENOLOGIST [address] [place] [address] 02/22/2025 8:[address] [place] [place] [address] Pam Fleming MD [address] [place] [address] 02/24/2025 11:20 AM CDT Office Visit [facility] Family [facility] Internal Medicine - [place] [id number] [place] [address] Sandra Bashir APNP [address] [place] [address] 09/21/2025 10:00 AM CDT Office Visit [facility] [place] [facility] [address] [place] [address] Kervin Rossi MD [address] [place] [address] Pending Results Name Type Priority Associated Diagnoses Date /Time MRSA SCREENING Microbiology STAT 02/21/20 8:42 AM CDT Scheduled Orders Name Type Priority Associated Diagnoses Orde r Schedule MRSA SCREENING Microbiology STAT STAT for 1 Occurrences starting 02/20/2025 until 02/20/2025 documented as of this encounter Goals Goal Patient Goal Type Associated Problems Recent Progress Patient-Stated? Author Health - patient able to perform ADLs independently General No Shara Estevez, RN Patient will return to prior living situation and remain independent in ADLs upon discharge from hospital Lifestyle No Francheska Field, RN Monitor - able to maintain pain control Lifestyle No Srinivas Perkins RN documented as of this encounter Procedures Procedure Name Priority Date/Time Associated Diagnosis Comments XR CHEST PA+LAT Routine 02/20/2025 9:38 AM CDT TYPE & SCREEN STAT 02/20/2025 8:43 AM CDT PARTIAL THROMBOPLASTIN TIME,PTT STAT 02/20/2025 8:43 AM CDT PROTHROMBIN TIME, VENOUS STAT 02/20/2025 8:43 AM CDT COMPREHENSIVE METABOLIC PANEL STAT 02/20/2025 8:43 AM CDT CBC W/DIFF AUTOMATED STAT 02/20/2025 8:43 AM CDT documented in this encounter Results * XR CHEST PA+LAT (02/20/2025 9:38 AM CDT) Anatomical Region Laterality Modality Chest Radiographic Kia ging 02/20/2025 9:43 AM CDT Impressions 02/20/2025 11:39 AM CDT IMPRESSION: Probable pulmonary edema and small pleural effusions. The attending radiologist has reviewed the image(s) and agrees with the content of this report. Ordered By: PAM FLEMING Interpreted By: Irvin Stewart MD, 02/20/2025 9:43 AM Narrative 02/20/2025 11:39 AM CDT [facility] [address] [place], [place] [address] PROCEDURE: XR CHEST PA+LAT. 02/20/2025 9:26 AM. TECHNIQUE: 2 views (PA and Lateral) of the chest were performed. HISTORY: Preop TAVR COMPARISON: CTA TAVR 02/14/2025 Portable 02/11/2025 FINDINGS: Support Devices: Median sternotomy wires. Aortic valve prosthesis. Chest Wall/Diaphragm/Upper Abdomen: The thoracic musculoskeletal structures and the upper abdomen are within normal limits. Cardiac Silhouette/Mediastinum/Fabiola: The cardiac, mediastinal, and hilar contours are grossly unchanged. Lungs/Pleural Spaces: Reticular opacities. Patchy bilateral perihilar and basilar opacities. Small bilateral pleural effusions. Bronchial wall thickening. Procedure Note Matt Lizama MD - 02/20/[address] [address] PROCEDURE: XR CHEST PA+LAT. 02/20/2025 9:26 AM. TECHNIQUE: 2 views (PA and Lateral) of the chest were performed. HISTORY: Preop TAVR COMPARISON: CTA TAVR 02/14/2025 Portable 02/11/2025 FINDINGS: Support Devices: Median sternotomy wires. Aortic valve prosthesis. Chest Wall/Diaphragm/Upper Abdomen: The thoracic musculoskeletalstructures and the upper abdomen are within normal limits. Cardiac Silhouette/Mediastinum/Fabiola: The cardiac, mediastinal, and hilarcontours are grossly unchanged. Lungs/Pleural Spaces: Reticular opacities. Patchy bilateral perihilar andbasilar opacities. Small bilateral pleural effusions. Bronchial wallthickening. IMPRESSION: Probable pulmonary edema and small pleural effusions. The attending radiologist has reviewed the image(s) and agrees with thecontent of this report. Ordered By: PAM FLEMING Interpreted By: Irvin Stewart MD, 02/20/2025 9:43 AM us Pam Fleming MD GENERAL IMAGING Final Re sult * (ABNORMAL) THROMBOPLASTIN TIME PARTIAL,PTT (02/20/2025 8:43 AM CDT) PTT 37.4(H) 25.1 - 36.5 SEC 02/20/2025 9:16 AM CDT [facility] 02/20/2025 8:43 AM CDT Pam Fleming MD LABORATORY Final Re sult Performing Organization Address [facility] Co de Phone Number [facility] [address] [place] [address], * TYPE & SCREEN - Verify expiration date is current (02/20/2025 8:43 AM CDT) ABO/RH O POSITIVE 02/20/2025 9:40 AM CDT [facility] ANTIBODY SCREEN NEGATIVE 02/20/2025 9:40 AM CDT [facility] SAMPLE EXPIRATION 02/23/2025,2 359 02/20/2025 9:40 AM CDT [facility] 02/20/2025 8:43 AM CDT Pam Fleming MD BLOOD BANK TEST ORDERABL ES Final Result Performing Organization Address [facility] Co de Phone Number [facility] [address] [place] [address], * (ABNORMAL) PROTIME/INR, VENOUS (02/20/2025 8:43 AM CDT) PROTIME 14.4(H) 10.2 - 12.9 SEC 02/20/2025 9:16 AM CDT [facility] INR 1.2 02/20/2025 9:16 AM CDT [facility] Comment: Recommended INR Therapeutic Goals: 2.0-3.0 Routine Therapy 2.5-3.5 Mechanical Prosthetic Valves (High Risk) 02/20/2025 8:43 AM CDT Pam Fleming MD LABORATORY Final Re sult [facility] [address] [place] [address], [place] [phone] * (ABNORMAL) COMPREHENSIVE METABOLIC PANEL (02/20/2025 8:43 AM CDT) [facility] GLUCOSE 99 70 - 99 MG/DL 02/20/2025 9:23 AM CDT [facility] BUN 30(H) 7 - 18 MG/DL 02/20/2025 9:23 AM CDT [facility] CREATININE S/P/B 2.15(H) 0.7 - 1.3 MG/DL 02/20/2025 9:23 AM CDT [facility] SODIUM S/P/B 133(L) 136 - 145 MMOL/L 02/20/2025 9:23 AM CDT [facility] POTASSIUM S/P/B 4.1 3.5 - 5.1 MMOL/L 02/20/2025 9:23 AM CDT [facility] CHLORIDE S/P/B 104 97 - 115 MMOL/L 02/20/2025 9:23 AM CDT [facility] CO2 19.6(L) 21 - 32 MMOL/L 02/20/2025 9:23 AM CDT [facility] CALCIUM S/P/B 9.1 8.5 - 10.1 MG/DL 02/20/2025 9:23 AM CDT [facility] BILIRUBIN TOTAL S/P/B 1.7(H) 0.2 - 1.2 MG/DL 02/20/2025 9:23 AM CDT [facility] Comment: THIS ASSAY IS NOT RECOMMENDED FOR PATIENTS UNDERGOING TREATMENT WITH ELTROMBOPAG DUE TO THE POTENTIAL FOR FALSELY ELEVATED RESULTS. TOTAL PROTEIN S/P/B 6.4 6.4 - 8.2 G/DL 02/20/2025 9:23 AM CDT [facility] ALBUMIN S/P/B 3.2(L) 3.4 - 5.0 G/DL 02/20/2025 9:23 AM CDT [facility] AST 24 15 - 37 U/L 02/20/2025 9:23 AM CDT [facility] ALT 15(L) 16 - 60 U/L 02/20/2025 9:23 AM T [facility] ALKALINE PHOSPHATASE S/P/B 291(H) 50 - 136 U/L 02/20/2025 9:23 AM T [facility] ANION GAP 9.4 2 - 10 MMOL/L 02/20/2025 9:23 AM T [facility] BUN CREATININE RATIO 14.0 6 - 26 02/20/2025 9:23 AM T [facility] A/G RATIO 1.0 1.0 - 2.0 RATIO 02/20/2025 9:23 AM T [facility] GFR ESTIMATE 33(L) >90 ML/MIN/1.7 3 M2 02/20/2025 9:23 AM T [facility] Comment: NOTE: eGFR is not calculated for patients <18 years of age or gender unknown. This is an estimated GFR calculation using the new CKD EPI creatinine equation without race and so does not require a correction factor for race. This estimated GFR should not be used for calculating drug doses. 02/20/2025 8:43 AM CDT Pam Fleming MD LABORATORY Final Re sult [facility] [address] [place] [address], [place] [phone] * (ABNORMAL) CBC W/DIFF AUTOMATED (02/20/2025 8:43 AM CDT) [facility] Signature WBC 19.22(H) 4.5 - 11.0 x10'3/uL 02/20/2025 9:14 AM CDT [facility] RBC 2.91(L) 4.70 - 6.10 x10'6/uL 02/20/2025 9:14 AM CDT [facility] HGB 8.9(L) 14.0 - 18.0 G/DL 02/20/2025 9:14 AM CDT [facility] HCT 26.9(L) 43.0 - 54.0 % 02/20/2025 9:14 AM CDT [facility] MCV 92.4 80.0 - 94.0 FL 02/20/2025 9:14 AM CDT [facility] MCH 30.6 27.0 - 31.0 PG 02/20/2025 9:14 AM CDT [facility] MCHC 33.1 32.0 - 36.0 G/DL 02/20/2025 9:14 AM CDT [facility] RDW 17.8(H) 11.5 - 14.5 % 02/20/2025 9:14 AM CDT [facility] PLT 555(H) 130 - 400 x10'3/uL 02/20/2025 9:14 AM CDT [facility] MPV 10.6 9.3 - 12.2 FL 02/20/2025 9:14 AM CDT [facility] DIFFERENTIAL TYPE MANUAL DIFFERENTIAL 02/20/2025 9:45 AM CDT [facility] SEG NEUTROPHILS 77 % 9:45 AM CDT [facility] LYMPHOCYTES 6 % 02/20/2025 9:45 AM CDT [facility] ATYP. LYMPHS 2 % 02/20/2025 9:45 AM CDT [facility] MONOCYTES 3 % 02/20/2025 9:45 AM CDT [facility] EOSINOPHILS 3 % 02/20/2025 9:45 AM CDT [facility] BASOPHILS 2 % 02/20/2025 9:45 AM CDT [facility] BANDS 3 % 02/20/2025 9:45 AM CDT [facility] METAMYELOCYTES 2 % 02/20/2025 9:45 AM CDT [facility] MYELOCYTES 1 % 02/20/2025 9:45 AM CDT [facility] PROMYELOCYTES 1 % 02/20/2025 9:45 AM CDT [facility] ABS. NEUTROPHILS 15.38(H) 1.80 - 7.70 x10'3/uL 02/20/2025 9:45 AM CDT [facility] ABS. LYMPHOCYTES 1.54 1.00 - 4.80 x10'3/uL 02/20/2025 9:45 AM CDT [facility] ABS. MONOCYTES 0.58 0.30 - 0.82 x10'3/uL 02/20/2025 9:45 AM CDT [facility] ABS. EOSINOPHILS 0.58(H) 0.04 - 0.54 x10'3/uL 02/20/2025 9:45 AM CDT [facility] ABS. BASOPHILS 0.38(H) 0.01 - 0.08 x10'3/uL 02/20/2025 9:45 AM CDT [facility] ABS. METAMYELOCYTES 0.38(H) 0.00 x10'3/uL 02/20/2025 9:45 AM CDT [facility] ABS. MYELOCYTES 0.19(H) 0.00 x10'3/uL 02/20/2025 9:45 AM CDT [facility] ABS. PROMYELOCYTES 0.19(H) 0.00 x10'3/uL 02/20/2025 9:45 AM CDT [facility] RBC MORPHOLOGY SLIDE REVIEWED 2024 9:45 AM CDT [facility] POIKLO 1+ 02/20/2025 9:45 AM CDT [facility] PLT EST. INCREASED 02/20/2025 9:45 AM CDT [facility] 02/20/2025 8:43 AM CDT Pam Fleming MD LABORATORY Final Re sult [facility] [address] [place] [address], documented in this encounter Visit Diagnoses Not on filedocumented in this encounter Additional Health Concerns Assessment Noted Time PHQ-9 Depression Total Score: 1 08/29/19 21 12:27 PM CDT documented as of this encounter Care Teams Hadoop Consultant Relationship Specialty Start Date End Date Sandra Bashir APNP [address] [place] [address] PCP - General NURSE PRACTITIONER 08/28/20 None, Provider, 08/09/20 Pam Fleming MD 3 [facility] [address] [place] [address] Consulting Physician INTERVENTIONAL CARDIOLOGY 02/08/25 Stuart Nelson MD [facility]. [address] [place] [address] [phone] Consulting Physician CARDIOVASCULAR DISEASE 08/10/20 Joyce Berry PA 3 [facility], [address] [place] [address] [phone] Physician Process Development Associate PHYSICIAN CHAR HOUSE SUPERVISOR 02/10/25 documented as of this encounter
[2025-02-20 11:06] VITALS: BMI 26.5
--- NOTE | ~2025-02-21 | BM_ITS ---
EXAMINATION: CCL bone marrow asp w bx diag ORDER COMPLETED DATE: 02/21/2025 10:00 INDICATION: Leukocytosis TECHNIQUE: A time-out was performed to verify the patient's name, date of , and procedure to be performed. The procedure including the risks and benefits was discussed with the patient. Risks discussed included bleeding, infection, nerve injury and allergic reaction. The patient understood the risks and agreed to proceed. The skin overlying the right posterior iliac spine was prepped and draped in usual sterile fashion. Anesthetic was administered with 1% lidocaine subcutaneously supplemented with 50 mcg fentanyl IV. An 11 gauge needle was inserted into the right ilium with fluoroscopic guidance. Bone marrow was aspirated. An 8 gauge needle was then inserted into the right ilium with fluoroscopic guidance. A core bone marrow biopsy was obtained. The needle was removed and the entry site was cleaned and dressed. There were no immediate complications. A total of 0 fluoroscopic images were recorded. Fluoroscopy exposure time was 0.1 minutes. Total DAP was 178 mGycm^2. FINDINGS: Real-time fluoroscopy demonstrates the biopsy needle tip overlying the right posterior iliac spine. IMPRESSION: 1. Successful fluoroscopic guided bone marrow aspiration. 2. Successful fluoroscopic guided bone marrow biopsy. Reviewed, dictated and finalized at location A.
--- OUTSIDE RECORDS SUMMARY | 2025-02-21 01:11 | XMS_ITS | Encounter Summary ---
Author Organization [facility] Address [address] [place] [address] Phone Care Team Providers Care Shade Hanger Name Role Phone Sandra Bashir Primary Care Provider + Encounter Details Date Type Department Care Team (Late st Contact Info) Description 07/23/2021 Orders Only [facility] Scanning, Provider Social History Tobacco Use Types Packs/Day Years Used Date Smoking Tobacco: Never Assessed Sex and Gender Information Value Date Recorded Sex Assigned at Not on file Legal Sex Male 4:48 AM QUALITY COMPLIANCE CONSULTANT Gender Identity Not on file Sexual Orientation [...] on filedocumented in this encounter Care Teams Shade Hanger Relationship Specialty Start Date End Date Sandra Bashir PA PCP - General Nurse Practitioner 09/02/21 documented as of this encounter
--- OUTSIDE RECORDS SUMMARY | 2025-02-21 01:11 | XMS_ITS | Encounter Summary ---
Author Organization [facility] Address [address] [place] [address] Care Team Providers Care Account Support Associate Name Role Phone None, Provider MD Unavailable Unavailable Sandra Bashir Primary Care Provider [phone] Pam Fleming MD Unavailable [phone] Stuart Nelson MD Unavailable [phone] Joyce Berry Unavailable [phone] Encounter Details Date Type Department Care Team (Late st Contact Info) Description 03/08/[address] [employer] Message Enc [facility], [facility] [address] [place], [place] [phone] Zenaida Simon, REFINER OPERATOR-C [facility]. [facility] [address] [place], [place] [phone] Blood Pressure Social History Tobacco Use Types Packs/Day Years Used Date Smoking Tobacco: Former Smokeless Tobacco: Former Quit: 1996 Alcohol Use Standard Drinks/Week Comments Yes 0 (1 standard drink = 0.6 oz pur e alcohol) socially AUDIT-C Answer Date Recorded Q1: How often do you have a drink containing alc ohol? Monthly or less 08/10/2020 Average Number of Drinks Not on file 021 Frequency of Binge Drinking Not on file 06/2020 PHQ-2 Answer Date Recorded Patient Health Questionnaire-2 Score 0 05/23/2022 Sex and Gender Information Value Date Recorded Sex Assigned at Male 06/22/2024 8:06 AM DISINTEGRATOR Legal Sex Male 7:43 PM CDT Gender Identity Male 06/22/2024 8:06 AM DISINTEGRATOR Sexual Orientation Not on file documented as of this encounter Functional Status * RETIRED Are you deaf or do you have serious difficulty hearing Answer Date of Assessment Author Status No 08/10/2020 4:39 AM CDT Activ e * RETIRED Are you blind or do you have serious difficulty seeing, even when wearing glasses? Answer Date of Assessment Author Status No 08/10/2020 4:39 AM CDT Activ e * Do you have serious difficulty walking or climbing stairs? Answer Date of Assessment Author Status Yes 08/10/2020 4:39 AM CDT Dimitri Bourne se, RN Active * Do you have difficulty dressing or bathing? Answer Date of Assessment Author Status No 08/10/2020 4:39 AM CDT Dimitri Bourne se, RN Active * Because of a physical, mental, or emotional condition, do you have difficulty doing errands alone such as visiting a doctor's office or shopping? Answer Date of Assessment Author Status No 08/10/2020 4:39 AM CDT Dimitri Bourne se, RN Active documented as of this encounter Mental Status * Because of a physical, mental, or emotional condition, do you have serious difficulty concentrating, remembering, or making decisions? Answer Entry Date Author Status No 08/10/2020 4:39 AM CDT Dimitri Bourne se, RN Active documented in this encounter Plan of Treatment Upcoming Encounters Date Type Department Care Team (Late st Contact Info) Description 02/16/2025 11:59 PM CDT Anesthesia Event [employer] [address] Basia Larkin CAST IRON DRAIN PIPE LAYER [address] [place] [address] 02/22/2025 8:00 AM CDT Appointment [facility] [place] [address] Pam Fleming MD 3 [facility] [address] [place] [address] 02/24/2025 11:20 AM CDT Office Visit [facility] Family & Internal Medicine - [place] [address] [place] [address] Sandra Bashir APNP [address] [place] [address] 09/21/2025 10:00 AM CDT Office Visit [facility] Multispec[facility]ty Care - [address] [place] [address] Kervin Rossi MD 3 [facility] [address] [place] [address] documented as of this encounter Goals Goal Patient Goal Type Associated Problems Recent Progress Patient-Stated? Author Health - patient able to perform ADLs independently General No Shara Estevez, RN documented as of this encounter Visit Diagnoses Not on filedocumented in this encounter Additional Health Concerns Assessment Noted Time PHQ-9 Depression Total Score: 1 08/29/19 21 12:27 PM CDT documented as of this encounter Care Teams Account Support Associate Relationship Specialty Start Date End Date Sandra Bashir APNP [facility] [place] [address] PCP - General NURSE PRACTITIONER 08/28/20 None, MD Caro 08/09/20 Pam Fleming MD 3 [facility] [address] [place] [address] Consulting Physician INTERVENTIONAL CARDIOLOGY 02/08/25 Stuart Nelson MD [facility]. [address] [place] [address] Consulting Physician CARDIOVASCULAR DISEASE 08/10/20 Joyce Berry PA 3 [facility], [address] [place] [address] Physician Occupational Therapy Aide PHYSICIAN RECEPTION SPECIALIST 02/10/25 documented as of this encounter
--- OUTSIDE RECORDS SUMMARY | 2025-02-21 01:11 | XMS_ITS | Data Portability ---
Author Organization [facility] [employer], [facility] OFF[facility] Address [address] [address] Assessment No assessment recorded. Plan of Treatment Reminders Order Date Submit Date Provider Last Modified By Organization Details Last Modified Time Details Appointments None recorded. Lab PSA, serum or plasma - Screening PSA 2018 019 [email or web address] Not available 9 14:10:52 CBC w/ auto diff 2018 019 [email or web address] Not available 9 16:58:19 vitamin D, 25-hydroxy, total, serum 2018 019 [email or web address] Not available 9 16:55:51 testosteron e, free, serum 2018 019 [email or web address] Not available 9 16:55:51 testosteron e, total, serum 2018 019 YAHAIRA Not available 9 14:20:24 Referral None recorded. Procedures None recorded. Surgeries None recorded. Imaging US, lower extremity, nonvascular 2018 019 [email or web address] Not available 9 14:48:35 XR, knee 2018 019 [email or web address] Not available 9 16:13:05 Medication Orders clindamycin HCl 300 mg capsule 2018 019 [email or web address] Not available 9 15:01:43 diazepam 10 mg tablet 2018 019 [email or web address] Not available 9 15:01:43 Patient TargetsNo targets recorded. Patient Instructions Encounter Date Encounter Id Patient Instructions Last Modified By Organization Details Last Modified Time 06/30/2018 [id number] knee arthritis: care instructions Not available 06/30/2018 15:01:43 After review of radiographic and examination findings, we discussed treatment options available. These included corticosteroid injection, viscous supplementation, bracing of the knee, observation, surgical referral, physical therapy, pain management, and/or stem cell treatment. The patient is definitely interested in non-surgical alternatives. If they choose to undergo stem cell biologic treatment, it is understood that it is considered investigational and off label use of the product by FDA, that it is not a covered benefit by insurance, and that there is no guarantee of symptom improvement. Len has a fusion curriculum developer brace that he will bring and for evaluation to his treatment appointment If opting to undergo biologic treatment, an order was given for laboratory studies to be completed. We reviewed the stem cell treatment and depth. Information packet was given to and reviewed with the patient. All questions were answered related to the procedure, post procedure expectations, and cost associated with treatment. We also discussed that sometimes more than one biologic treatment is required to attain desired efficacy. They will call our office if they desire to schedule an appointment for treatment or review any of the other treatment options discussed. Patient will also RTC or call for any worsening, questions or concerns prn. Not available 07/05/2018 07:19:40 Reason for Referral None Reported. Results Created Date Observation Date Name Description Value Unit Range Abnormal Flag Note LastModifiedBy Organization Detail LastModifiedTime Result Notes None recorded. Problems Name Problem SNOMED Code Status Onset Date Resolution Date Notes Provider Name and Address Organization Details Recorded Time Osteonecrosis 502660228 Active 2018 Franki mayberry [employer] 9 14:45:27 Hypertensive disorder 15990291 Active 2018 Franki mayberry [employer] [facility] 9 14:45:41 Arthritis 8243802 Active 2018 Franki mayberry [employer] [facility] 9 14:45:47 Problem Notes None recorded. Procedures Surgical History Date Name Laterality Status Provider Name and Address Organization Details Recorded Time 5 Knee Surgery completed Franki Price [facility] [employer] [facility] 06/30/2018 14:47:19 Imaging Results None recorded. Procedure Notes None recorded. Medical Equipment None Reported. Allergies Allergen ID Allergen Name Allergen Category Reaction Reaction Severity Criticality Documentation Date Start Date Code Code System Note Provider Name and Address Organization Details Recorded Time 59735 Substance with sulfonami de structure and antibacte rial mechanism of action (substanc e) medicatio n Not available Not available Not available 06/30/2018 49267 8003 SNOMED [facility] 9 14:44:46 95136 Bactrim medicatio n Not available Not available Not available 06/30/2018 85253 9 RxNorm [facility] 9 14:44:51 Medications Name Sig Start Date Stop Date Status Note LastModified by Organization Details LastModified Time hydroxyure a 500 mg capsule active Not Available Not Available Not Available clindamyci n HCl 300 mg capsule Take 3 capsules (total of 900mg) po one hour prior to procedure . One time dose. 2018 active Use for patients with PCN or cephalosp emily allergy Not Available Not Available Not Available tramadol 37.5 mg-acetami nophen 325 mg tablet Take 1 tablet every 6 hours by oral route as needed for 7 days. active Not Available Not Available No t Available hydrocodon e 5 mg-acetami nophen 325 mg tablet Take 1 tablet every 6 hours by oral route for 7 days. 2018 active Not Available Not Available Not Avai lable quinapril 40 mg tablet active Not Available Not Available Not Available amlodipine 10 mg tablet active Not Available Not Available Not Available metoprolol tartrate 50 mg tablet active Not Available Not Available Not Available allopurino l 300 mg tablet active Not Available Not Available Not Available hydrochlor othiazide 25 mg tablet active Not Available Not Available Not Available diazepam 10 mg tablet Take 1 tablet(s) 30 mins PRIOR to appointme nt, Repeat at appointme nt time PRN anxiety 2018 active Not Available Not Available Not Avai lable methylpred nisolone 4 mg tablets in a dose pack active Not Available Not Available Not Available zolpidem ER 12.5 mg tablet,ext ended release,mu ltiphase active Not Available Not Available Not Available allopurino l active Not Available Not Available Not Available Vitals Date Recorded Body height Body mass index (BMI) Body weight Heart rate Systolic And Diastolic Provider Name and Address Organization Details Last Updated DateTime 06/30/2018 190.5 cm 31.2 kg/m2 279731.0 9 g 76 /min 157/79 mm[Hg] Franki Price [facility] [employer] [email or web address] 06/30/2018 14:44:36 Social History Question Answer Notes LastModified by [employer] software Details LastModified Time Tobacco Smoking Status Never Smoker Franki rPice shawanda [facility] [employer] [email or web address] 06/30/2018 14:46:30 Live Alone Or With Others? With Others [email or web address] Information not available 06/30/2018 Marital Status [email or web address] Informatio n not available 06/30/2018 What Was The Date Of Your Most Recent Tobacco Screening? 06/30/2018 Information n ot available 12/02/2018 General Stress Level Medium [email or web address] Information not available 06/30/2018 Sex: Unknown Functional Status Question Answer Note LastModified by [employer] software Details LastModified Time What is your level of alcohol consumption? 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 Occasional [email or web address] Information not available 06/30/2018 Mental Status None recorded. Family History Relationship Description Onset Age of this Age Resolved Age Notes LastModified by Organization Details LastModified Time Unspecified Relation Heart disease [email or web address] Not available 2018 14:46:02 Unspecified Relation Hypertensive disorder Not available 2018 14:46:13 Unspecified Relation Malignant neoplastic disease [email or web address] Not available 2018 14:46:25 Medical History Condition Response Coronary Artery Disease N HIV or AIDS N Gout N Kidney Stones N Hyperthyroidism N Head Trauma/Injury N Hernia N Hypothyroidism N Lung Disease N Depression N COPD N Blood Clots N Pacemaker N Anxiety Disorder N Arthritis Y Cancer N Stroke N Leg or Foot Ulcers N Neck Injury N High Cholesterol N Liver Disease N Rheumatoid Arthritis N Fibromyalgia N Headaches N Kidney Disease N Heart Problems N Migraines N Thyroid Problems N Anemia N Multiple Sclerosis N Tendon Tear N Ulcers N Heart Attack (SC) N Diabetes N Bleeding Disorder N Seizures/Epilepsy N Tuberculosis N Urinary Tract Infection N Back Problems N Diverticulitis N Asthma N Lupus N Peripheral Vascular Disease N Sleep Disorder N GERD/Reflux N Hepatitis N Aneurysm N Heart Disease N Pulmonary Embolism N Hypertension Y Osteoporosis N Past Encounters Encounter ID Performer Location Encounter Start Date Encounter Closed Date Diagnosis/Indication Diagnosis SNOMED-CT Code Diagnosis ICD10 Code Diagnosis IMO Codes Diagnosis Note [id number] Marjorie Martinez MD [facility] [address] [place] [address] 06/30/2018 14:44:03 07/05/2018 14:40:43 Osteoarthritis of knee 018262955 M17.11 Bilateral knee pain consistent with: Right knee grade 4 medial compartmen t with moderate patellofem oral osteoarthr osis; medial meniscal derangemen t with moderate extrusion; varus malalignme nt with instabilit y. Left knee grade 2 medial compartmen t with moderate patellofem oral osteoarthr osis; medial meniscal derangemen t with the mild extrusion; no appreciabl e instabilit y Anxiety 88838448 F41.9 Antibiotic prophylaxis indicated 049455306 Z78.9 Malaise and fatigue 2717 05479 R53.83 Z12.5 M89.9 M94.9 R53.81 Derangemen t of meniscus 043762565 M23.306 M23.307 Health Concerns Section Related Observation LastModified by Organization Detai ls LastModified Time None Recorded Concern Status LastModified by Organization Details LastModified Time None Recorded Advance Directives Directive None Recorded Payers Insurance Date Sequence Insurance Name Policy Number Policy Elizabeth Covered Member ID Elizabeth Member ID Guarantor Name 08/04/2018 1 [employer] (EPO) [id number] Torito Bernard [id number] Torito R Shane 06/30/2018 1 *SELF PAY* Da nny R [place] 12/17/[address] [facility] [email or web address] - [employer] SIGNATURE ADMINISTRAT[employer] (PPO) [id number] Torito R Shane [id number] Torito R Shane 08/04/[address] [facility] - [employer] SIGNATURE [employer]MINISTRAT[employer] (PPO) Torito Alfaro Shane [id number] 36A Torito R [place] 08/04/2018 1 [facility] [id number] Torito Lynn [id number] 36A Torito Lynn Notes Date Note Type Note Provider Name and Address Organization Details Recorded Time 06/30/2018 text/html Len is a pleasant 58-year-old male who presents our clinic today for evaluation of his chronic right knee pain. He also has mild left knee pain that he would like to have evaluated. His problem started in 2010. He did have arthroscopy to the right knee in 1984 and did well postoperatively. He has seen is local orthopedist who proceeded with x-rays and told that he had significant arthritis in the right knee. Corticosteroid injection was performed in 2014 with no significant long-term improvement. He was also given a knee brace which has helped to moderate his sharp pain when he is up ambulating. He has intermittent sensation of giving way. The majority of his pain is along the medial aspect of the right knee. It is worse with hyperflexion and pivoting. Miid-kdy-scbzklx anti-inflammatory medications have helped to moderate his symptoms. His starting get some increased instability with the knee. His left knee bothers him mostly along the medial aspect of the knee. He is trying to avoid any surgical intervention for the knees. Specifically, he is here today to discuss the possibility of stem-cell biologic treatment for his knees. JAY Puga [employer], [facility] 07/27/2018 13:09:43
--- OUTSIDE RECORDS SUMMARY | 2025-02-21 01:11 | XMS_ITS | Encounter Summary ---
Author Organization [facility] Address [address] [place] [address] Care Team Providers Care Prosthetic Assistant Name Role Phone None, Provider MD Unavailable Unavailable Sandra Bashir Primary Care Provider [phone] Pam Fleming MD Unavailable [phone] Stuart Nelson MD Unavailable [phone] Joyce Berry Unavailable [phone] Encounter Details Date Type Department Care Team (Late st Contact Info) Description 02/14/2025 Hospital Orders Only [facility] Metal Furniture Panel Coverer [address] [place], [place] [phone] Pam Fleming MD [address] [facility] [address] [place] [address] Social History Tobacco Use Types Packs/Day Years Used Date Smoking Tobacco: Never Passive Smoke Exposure: Never Alcohol Use Standard Drinks/Week Comments Not Currently 0 (1 standard drink = 0.6 oz pur e alcohol) [facility] Utilities Answer Date Recorded In the past 12 months has e electric, gas, oil, or water company threatened to shut off services in your [...] any time in the past 12 m [facility], were you homeless or living in a fpc (including now)? No 02/07/2025 Sex and Gender Information Value Date Recorded Sex Assigned at Male 06/22/2024 8:06 AM WATER TREATMENT TECHNICIAN Legal Sex Male 7:43 PM CDT Gender Identity Male 06/22/2024 8:06 AM WATER TREATMENT TECHNICIAN Sexual Orientation Not on file documented as of this encounter Functional Status * Are you [...] R N Active documented in this encounter Plan of Treatment Upcoming Encounters Date Type Department Care Team (Late st Contact Info) Description 02/16/2025 11:59 PM CDT Anesthesia Event [facility] [employer] Furn[employer] Panel [address] [place], [place] [address] Basia Larkin CNP [address] [place], [place] [address] 02/22/2025 8:00 AM CDT Appointment [facility] [employer] [place], [place] [address] Pam Fleming MD [address] [address] 02/24/2025 11:20 AM CDT Office Visit [facility] Family & Internal Medicine - [place] [address] [place] [address] Sandra Bashir APNP [address] [place] [address] 09/21/2025 10:00 AM CDT Office Visit [facility] Multispecialty Care - [facility] 3 [facility] [address] [place] [phone] Kervin Rossi MD 3 [facility] [address] [place] [address] documented as of this encounter Goals Goal Patient Goal Type Associated Problems Recent Progress Patient-Stated? Author Health - patient able to perform ADLs independently General No Shara Estevez, GUILLERMO Patient will return to prior living situation and remain independent in ADLs upon discharge from hospital Lifestyle No Francheska Field, GUILLERMO Monitor - able to maintain pain control Lifestyle No Srinivas Perkins, GUILLERMO documented as of this encounter Visit Diagnoses Not on filedocumented in this encounter Additional Health Concerns Assessment Noted Time PHQ-9 Depression Total Score: 1 08/29/19 21 12:27 PM CDT documented as of this encounter Care Teams Prosthetic Assistant Relationship Specialty Start Date End Date Sandra Bashir APNP [address] [place] [address] PCP - General NURSE PRACTITIONER 08/28/20 None, MD Caro 08/09/20 Pam Fleming MD 3 [facility] [address] [place] [address] Consulting Physician INTERVENTIONAL CARDIOLOGY 02/08/25 Stuart Nelson MD Three [facility]. [address] [place] [phone] Consulting Physician CARDIOVASCULAR DISEASE 08/10/20 Joyce Berry PA 3 [facility], [address] [place] [phone] Physician Shellfish Checker PHYSICIAN CERTIFIED EMERGENCY VEHICLE TECHNICIAN 02/10/25 documented as of this encounter
--- OUTSIDE RECORDS SUMMARY | 2025-02-21 01:11 | XMS_ITS | Encounter Summary ---
Author Organization [facility] Address [address] [place] [address] Care Team Providers Care Framing Manager Name Role Phone None, Provider MD Unavailable Unavailable Sandra Bashir Primary Care Provider [phone] Pam Fleming MD Unavailable [phone] Stuart Nelson MD Unavailable [phone] Joyce Berry Unavailable [phone] Encounter Details Date Type Department Care Team (Late st Contact Info) Description 04/08/2023 Abstract [place] [id number] Jaiden Lucero MA Social History Tobacco Use Types Packs/Day Years [...] Sex Assigned at Male 06/22/2024 8:06 AM CATTLE TRADER Legal Sex Male 7:43 PM CDT Gender Identity Male 06/22/2024 8:06 AM CATTLE TRADER Sexual Orientation Not on file documented as [...] Description 02/16/2025 11:59 PM CDT Anesthesia Event [place] [address] Basia Larkin CNP [address] [place] [address] 02/22/2025 8:00 AM CDT Appointment [facility] [place] [address] Pam Fleming MD [address] [address] 02/24/2025 11:20 AM CDT Office Visit [facility] Family & Internal Medicine - [place] [address] [place] [address] Sandra Bashir APNP [address] [place] [address] 09/21/2025 10:00 AM CDT Office Visit [facility]ispecialty Care - [facility] [address] [facility] [place] [address] Kervin Rossi MD 3 [facility] [address] [place] [address] documented as of this encounter Goals Goal Patient Goal Type Associated Problems Recent Progress Patient-Stated? Author Health - patient able to perform ADLs independently General No Shara Estevez RN documented as of this encounter Procedures Procedure Name Priority Date/Time Associated Diagnosis Comments LIPID PANEL Routine 04/07/2023 documented in this encounter Results * LIPID PANEL (04/07/2023) CHOLESTEROL 193 HDL 36 TRIGLYCERIDES 205 NON HDL CHOLESTEROL 157 LDL (CALCULATED) 125 04/07/2023 us Default History Genericprovider LABORATORY Final Result documented in this encounter Visit Diagnoses Not on filedocumented in this encounter Additional Health Concerns Assessment Noted Time PHQ-9 Depression Total Score: 1 08/29/19 21 12:27 PM CDT documented as of this encounter Care Teams Framing Manager Relationship Specialty Start Date End Date Sandra Bashir APNP [address] [place] [address] PCP - General NURSE PRACTITIONER 08/28/20 None, ProviderMD 08/09/20 Pam Fleming MD 3 [facility] [place] [address] [place] [address] Consulting Physician INTERVENTIONAL CARDIOLOGY 02/08/25 Stuart Nelson MD Three [facility]. [address] [place], [place] [address] Consulting Physician CARDIOVASCULAR DISEASE 08/10/20 Joyce Berry PA 3 [facility], [address] [place], [place] [phone] Physician Water Resources Engineer PHYSICIAN CNC WOOD LATHE OPERATOR 02/10/25 documented as of this encounter
--- OUTSIDE RECORDS SUMMARY | 2025-02-21 01:11 | XMS_ITS | Encounter Summary ---
Author Organization [facility] Address [address] [place] [address] Care Team Providers Care Asphalt Paving Superintendent Name Role Phone None, Provider MD Unavailable Unavailable Sandra Bashir Primary Care Provider [phone] Pam Fleming MD Unavailable [phone] Stuart Nelson MD Unavailable [phone] Joyce Berry Unavailable [phone] Encounter Details Date Type Department Care Team (Late st Contact Info) Description 02/19/2025 [employer] Message Enc [place] [facility] [facility], [address] [address] Stuart Nelson MD [facility]. [address] [id number] Weight gain Social History Tobacco Use Types Packs/Day Years Used Date Smoking Tobacco: Never Passive Smoke Exposure: Never Alcohol Use Standard Drinks/Week Comments Not Currently 0 (1 standard drink = 0.6 oz pur e alcohol) [facility] Utilities Answer Date Recorded In the past [...] any time in the past 12 m [facility], were you homeless or living in a fci (including now)? No 02/07/2025 Sex and Gender Information Value Date Recorded Sex Assigned at Male 06/22/2024 8:06 AM RESEARCH ASSOCIATE PROFESSOR Legal Sex Male 7:43 PM CDT Gender Identity Male 06/22/2024 8:06 AM RESEARCH ASSOCIATE PROFESSOR Sexual Orientation Not on file documented as [...] Description 02/16/2025 11:59 PM CDT Anesthesia Event [facility] Powder Coat [employer], [place] [address] Basia Larkin CNP [address] [place] [address] 02/22/2025 8:00 AM CDT Appointment [facility] Powder [employer]at [employer] [place], [place] [address] Pam Fleming MD [address] [address] 02/24/2025 11:20 AM CDT Office Visit [facility] Family & Internal Medicine - [place] [address] [place] [address] Sandra Bashir APNP [address] [place] [address] 09/21/2025 10:00 AM CDT Office Visit [facility] Multispecialty Care - [facility] 3 [facility], [address] [place] [address] Kervin Rossi MD 3 [facility] [address] [place] [address] documented as of this encounter Goals Goal [...] Perkins RN documented as of this encounter Visit Diagnoses Not on filedocumented in this encounter Additional Health Concerns Assessment Noted Time PHQ-9 Depression Total Score: 1 08/29/19 21 12:27 PM CDT documented as of this encounter Care Teams Asphalt Paving Superintendent Relationship Specialty Start Date End Date Sandra Bashir APNP [facility] [place] [address] PCP - General NURSE PRACTITIONER 08/28/20 None, MD Caro 08/09/20 Pam Fleming MD 3 [facility] [place] [address] [place] [address] Consulting Physician INTERVENTIONAL CARDIOLOGY 02/08/25 Stuart Nelson MD Three [facility]. [address] [place] [phone] Consulting Physician CARDIOVASCULAR DISEASE 08/10/20 Joyce Berry PA 3 [facility], [address] [place] [phone] Physician Merchant Mill Utility Worker PHYSICIAN ROOM ATTENDANT 02/10/25 documented as of this encounter
--- OUTSIDE RECORDS SUMMARY | 2025-02-21 01:11 | XMS_ITS | Encounter Summary ---
Author Organization [facility] [employer] [facility] Address [address] [place] [address] Care Team Providers Care Lay Health Advocate Name Role Phone Unavailable Primary Care Provider Unavailabl e Reason for Visit * Reason Comments Medication Refill Encounter Details Date Type Department Care Team (Late Contact Info) Description 01/03/2019 Refill [facility] Oncology and Hematology Carl Cristin [address] [place] [address] Efren Serrano MD [facility] [employer] [address] [place] [phone] Insomnia, unspecified type Social History Tobacco Use Types Packs/Day Years Used Date Smoking Tobacco: Former Cigarettes Q uit: 12/23/1997 Smokeless Tobacco: Never Alcohol Use Standard Drinks/Week Comments Yes 0 (1 standard drink = 0.6 oz pur e alcohol) Sex and Gender Information Value Date Recorded Sex Assigned at Not on file Legal Sex Male 5:12 AM PRINTED CIRCUIT DESIGNER Gender Identity Not on file Sexual Orientation Not on file documented as of this encounter Plan of Treatment Upcoming Encounters Date Type Department Care Team (Late st Contact Info) Description 02/28/2025 4:30 PM CDT Telephone Check Up [facility] Oncology and Hematology [facility] Areli [address] [place] [address] Efren Serrano MD [address] [employer] [address] [place] [address] documented as of this encounter Visit Diagnoses Diagnosis Insomnia, unspecified type documented in this encounter
--- OUTSIDE RECORDS SUMMARY | 2025-02-21 01:11 | XMS_ITS | Encounter Summary ---
Author Organization [facility] Address [address] [place] [address] Care Team Providers Care Mill House Supervisor Name Role Phone None, Provider MD Unavailable Unavailable Sandra Bashir Primary Care Provider [phone] Pam Fleming MD Unavailable [phone] Stuart Nelson MD Unavailable [phone] Joyce Berry Unavailable [phone] Reason for Visit * Reason Onset Date Comments Advice 02/18/2025 Nurse Triage - A fter Hours ([id number]) Encounter Details Date Type Department Care Team (Late st Contact Info) Description 02/18/2025 Telephone [facility] [address] [place] [address] Stuart Nelson MD [address] [address] Advice (Nurse Triage - After Hours ([id number])/) Social History Tobacco Use Types Packs/Day Years Used Date Smoking Tobacco: Never Passive Smoke Exposure: Never Alcohol Use Standard Drinks/Week Comments Not Currently 0 (1 standard drink = 0.6 oz pur e alcohol) [facility] Utilities Answer Date Recorded In the [...] any time in the past [address] [facility], were you homeless or living in a chcf (including now)? No 02/07/2025 Sex and Gender Information Value Date Recorded Sex Assigned at Male 06/22/2024 8:06 AM PLASTERING SUPERVISOR Legal Sex Male 7:43 PM CDT Gender Identity Male 06/22/2024 8:06 AM PLASTERING SUPERVISOR Sexual Orientation Not on file documented as [...] R N Active documented in this encounter Progress Notes * Pushpa Mancini RN - 02/20/2025 9:36 AM CDT Addressed by Dr. Nelson yesterday * Isabela Hidalgo - 02/18/2025 9:28 AM CDT Nurse Triage - After Hours ([id number]) Comments Pt Was Just Discharged Last Thursday. Weight Up More Than 3 Lbs Will Start Lasix Today. Assessment Notes Pt calling to report that his weight was up 6 pounds from yesterday. Reports he has prn Lasix and will take at this time. Reports he is feeling well today and denies SOB. Reports baseline weight after hospital discharge on home scale was 202. Weight today is 209. Home Care - Information or Advice Only Call. Care Advice given per Information Only Call - No Triage (Adult) guideline. Pt voices understanding. He was encouraged to complete daily weights with same or no clothing. He will call back with symptoms or concerns. AC RN documented in this encounter Plan of Treatment Upcoming Encounters Date Type Department Care Team (Late st Contact Info) Description 02/16/2025 11:59 PM CDT Anesthesia Event [facility] Virtual [place] [address] Basia Larkin, PULMONARY NURSE PRACTITIONER [address] [place] [address] 02/22/2025 8:00 AM CDT Appointment [facility] [employer] [place] [address] Pam Fleming MD [address] [facility] [address] [place] [address] 02/24/2025 11:20 AM CDT Office Visit [facility] Medical Group Family & Internal Medicine - [place] [address] [place] [address] Sandra Bashir APNP [address] [place] [address] 09/21/2025 10:00 AM CDT Office Visit [facility] Mult[facility]pecialty Care - [facility] [address] [place] [address] Kervin Rossi MD [address] [place] [address] documented as of this encounter Goals Goal [...] documented as of this encounter Care Teams Mill House Supervisor Relationship Specialty Start Date End Date Sandra Bashir APNP [address] [place] [address] PCP - General NURSE PRACTITIONER 08/28/20 None, MD Caro 08/09/20 Pam Fleming MD [address] [facility] [address] [place] [address] Consulting Physician INTERVENTIONAL CARDIOLOGY 02/08/25 Stuart Nelson MD Three [facility]. [address] [place] [address] Consulting Physician CARDIOVASCULAR DISEASE 08/10/20 Joyce Berry PA 3 Health system, [address] [place], [place] [address] Physician Acetylene Torch Operator PHYSICIAN SAP PI ARCHITECT 02/10/25 documented as of this encounter
--- OUTSIDE RECORDS SUMMARY | 2025-02-21 01:11 | XMS_ITS | Encounter Summary ---
Author Organization [facility] Address [address] [place] [address] Care Team Providers Care Guitar Maker Name Role Phone None, Provider Unavailable Unavailable Sandra Bashir Primary Care Provider [phone] Pam Fleming MD Unavailable [phone] Stuart Nelson MD Unavailable [phone] Joyce Berry Unavailable [phone] Reason for Visit * Reason Onset Date Comments Advise 02/14/2025 Encounter Details Date Type Department Care Team (Late st Contact Info) Description 02/14/2025 Telephone [facility] Home Care [address] [place] [phone] Sandra Bashir APNP [facility] [place] [address] Advise Social History Tobacco Use Types Packs/Day Years [...] time in the past 12 m [facility], were you homeless or living in a alf (including now)? No 02/07/2025 Sex and Gender Information Value Date Recorded Sex Assigned at Male 06/22/2024 8:06 AM SPECIAL EDUCATION CLASSROOM AIDE Legal Sex Male 7:43 PM CDT Gender Identity Male 06/22/2024 8:06 AM SPECIAL EDUCATION CLASSROOM AIDE Sexual Orientation Not on file documented as [...] documented in this encounter Progress Notes * Salena Watts - 02/14/2025 1:10 PM CDTSummary: home health Bernabe, We received a home health referral for Torito from [facility] for CHF and anasarca. Will Sandra follow for nursing, PT, and OT visits? We do have up to a 5 business day delay post hospitaldischarge. If we are able to see him sooner we will. Thank you Salena [facility]RA[facility] Home Care documented in this encounter Plan of Treatment Upcoming Encounters Date Type Department Care Team (Late st Contact Info) Description 02/16/2025 11:59 PM CDT Anesthesia Event [facility] Fabric [place] [address] Basia Larkin, CHEF & OWNER [address] [place] [address] 02/22/2025 8:00 AM CDT Appointment [facility] [place] [address] Pam Fleming MD 3 [facility] [place] [address] [place] [address] 02/24/2025 11:20 AM CDT Office Visit [facility] Medical [facility] Family & Internal Medicine - [address] [address] Sandra Bashir APNP [address] [place] [address] 09/21/2025 10:00 AM CDT Office Visit [facility] Multispecialty Care - [facility] [address] [facility] [place] [address] Kervin Rossi MD [address] [facility] [address] [place] [address] documented as of this encounter Goals Goal Patient Goal Type Associated Problems Recent Progress Patient-Stated? Author Health - patient able to perform ADLs independently General No Shara Estevez RN Patient will return to prior living situation and remain independent in ADLs upon discharge from hospital Lifestyle No Francheska Field RN Monitor - able to maintain pain control Lifestyle No Srinivas Perkins RN documented as of this encounter Visit Diagnoses Not on filedocumented in this encounter Additional Health Concerns Assessment Noted Time PHQ-9 Depression Total Score: 1 08/29/19 21 12:27 PM CDT documented as of this encounter Care Teams Guitar Maker Relationship Specialty Start Date End Date Sandra Bashir APNP [address] [place] [address] PCP - General NURSE PRACTITIONER 08/28/20 None, Provider, 08/09/20 Pam Fleming MD 3 [facility] [address] [place] [phone] Consulting Physician INTERVENTIONAL CARDIOLOGY 02/08/25 Stuart Nelson MD Three [facility]. [address] [place] [phone] Consulting Physician CARDIOVASCULAR DISEASE 08/10/20 Joyce Berry PA 3 [facility], [address] [place] [address] Physician Occupational Rehabilitation Aide PHYSICIAN FARM AGENT 02/10/25 documented as of this encounter
--- OUTSIDE RECORDS SUMMARY | 2025-02-21 01:11 | XMS_ITS | Encounter Summary ---
Author Organization [facility] Address [address] [place] [address] Care Team Providers Care Tariff Compiler Name Role Phone None, Provider Unavailable Unavailable Sandra Bashir Primary Care Provider [phone] Pam Fleming MD Unavailable [phone] Stuart Nelson MD Unavailable [phone] Joyce Berry Unavailable [phone] Encounter Details Date Type Department Care Team (Latest Contact Info) Description 02/20/2025 Travel Social History Tobacco Use Types Packs/Day Years Used Date Smoking Tobacco: Never Passive Smoke Exposure: Never Smokeless Tobacco: Never Alcohol Use Standard Drinks/Week Comments Not Currently 0 (1 standard drink = 0.6 oz pur e alcohol) [facility] Utilities Answer Date Recorded In the past 12 months has e [employer], gas, oil, or water Friendsurance threatened to shut off services in your [...] time in the past 12 m [facility], were you homeless or living in a long-term (including now)? No 02/07/2025 Sex and Gender Information Value Date Recorded Sex Assigned at Male 06/22/2024 8:06 AM MILLING MACHINE SET UP OPERATOR Legal Sex Male 7:43 PM CDT Gender Identity Male 06/22/2024 8:06 AM MILLING MACHINE SET UP OPERATOR Sexual Orientation Not on file documented as [...] Description 02/16/2025 11:59 PM CDT Anesthesia Event [facility] [place] [address] Basia Larkin CNP [address] [place] [address] 02/22/2025 8:00 AM CDT Appointment [facility] [place] [address] Pam Fleming MD 3 [facility] [address] [place] [address] 02/24/2025 11:20 AM CDT Office Visit [facility] Medical Group Family & Internal Medicine [address] [phone] Sandra Bashir APNP [address] [place] [address] 09/21/2025 10:00 AM CDT Office Visit [facility] Medical Group Multispecialty Care - [facility] [address] [facility], [address] [place] [address] Kervin Rossi MD [address] [place] [address] [address] [place] [address] documented as of this encounter Goals Goal [...] documented as of this encounter Care Teams Tariff Compiler Relationship Specialty Start Date End Date Sandra Bashir APNP [address] [place] [address] PCP - General NURSE PRACTITIONER 08/28/20 None, MD Caro 08/09/20 Pam Fleming MD 3 [facility] [place] [address] [place] [address] Consulting Physician INTERVENTIONAL CARDIOLOGY 02/08/[address] [facility]. [address] [place] [address] Consulting Physician CARDIOVASCULAR DISEASE 08/10/20 Joyce Berry PA 3 [facility], [address] [place] [address] Physician Generator Rebuilder PHYSICIAN DATA POWER CONSULTANT 02/10/25 documented as of this encounter
--- OUTSIDE RECORDS SUMMARY | 2025-02-21 01:11 | XMS_ITS | Clinical Summary ---
Author Organization [facility] Address [address] [place] [address] Care Team Providers Care Mastic Sprayer Name Role Phone Sandra Bashir Primary Care [...] on file Legal Sex Male 4:48 AM DIRECTOR CORPORATE SECURITY Gender Identity Not on file Sexual Orientation Not on file Obstetrics History Last Filed Vital Signs Vital Sign Reading Time Taken Comments Blood Pressure 143/93 09/20/2024 10:23 AM CDT Pulse 102 09/20/2024 10:23 AM CDT Temperature - - Respiratory Rate - - Oxygen Saturation 100% 09/20/2024 10:23 AM CDT Inhaled Oxygen Concentration - - Weight 95.3 kg (210 lb) 07/01/2024 2:22 PM DIRECTOR CORPORATE SECURITY Height 190.5 cm (6' 3) 07/01/2024 2:22 PM DIRECTOR CORPORATE SECURITY Body Mass Index 26.25 07/01/2024 2:22 PM DIRECTOR CORPORATE SECURITY Plan of Treatment Health Maintenance Due Date [...] 07/07/2020 Influenza Vaccine (#1) [address] [place] [address] [facility] [place] [address] [email or web address] [place] [address] Care Teams Mastic Sprayer Relationship Specialty Start Date End Date Sandra Bashir PA PCP - General Nurse Practitioner 09/02/21
--- OUTSIDE RECORDS SUMMARY | 2025-02-21 01:11 | XMS_ITS | Encounter Summary ---
Author Organization [facility] Address [address] [place] [address] Care Team Providers Care Rn Documentation Specialist Name Role Phone None, Provider MD Unavailable Unavailable Sandra Bashir Primary Care Provider [phone] Pam Fleming MD Unavailable [phone] Stuart Nelson MD Unavailable [phone] Joyce Berry Unavailable [phone] Encounter Details Date Type Department Care Team (Late st Contact Info) Description 02/14/2025 Prep for Procedure [facility] THREE [facility] [address], [address] [place] [phone] Pam Fleming MD 3 [facility] [place] [address] [place] [address] Social History Tobacco Use Types Packs/Day Years Used Date Smoking Tobacco: Never Passive Smoke Exposure: Never Alcohol Use Standard Drinks/Week Comments Not Currently 0 (1 standard drink = 0.6 oz pur e alcohol) [facility] Utilities Answer Date Recorded In the past [...] any time in the past 12 m [facility], were you homeless or living in a alf (including now)? No 02/07/2025 Sex and Gender Information Value Date Recorded Sex Assigned at Male 06/22/2024 8:06 AM QUALITY ASSURANCE ASSESSOR Legal Sex Male 7:43 PM CDT Gender Identity Male 06/22/2024 8:06 AM QUALITY ASSURANCE ASSESSOR Sexual Orientation Not on file documented as [...] 02/16/2025 11:59 PM CDT Anesthesia Event [facility] [address] [place], [place] [address] Basia Larkin CNP [address] [place], [place] [address] 02/22/2025 8:00 AM CDT Appointment [facility] [address] [place], [place] [address] Pam Fleming MD [address] [address] 02/24/2025 11:20 AM CDT Office Visit [facility] Family & Internal Medicine - [place] [address] [place] [address] Sandra Bashir APNP [address] [place] [address] 09/21/2025 10:00 AM CDT Office Visit [facility] Multispecialty Care - [facility] [address] [facility] [place] [address] Kervin Rossi MD 3 [facility] [address] [place] [address] documented as of this encounter Goals Goal [...] documented as of this encounter Care Teams Rn Documentation Specialist Relationship Specialty Start Date End Date Sandra Bashir APNP [address] [place] [address] PCP - General NURSE PRACTITIONER 08/28/20 None, MD Caro 08/09/20 Pam Fleming MD 3 [facility] [address] [place] [address] Consulting Physician INTERVENTIONAL CARDIOLOGY 02/08/25 Stuart Nelson MD Three [facility]. [address] [place] [phone] Consulting Physician CARDIOVASCULAR DISEASE 08/10/20 Joyce Berry PA 3 [facility], [address] [place] [phone] Physician Interface Designer PHYSICIAN POWER PLANT MANAGER 02/10/25 documented as of this encounter
--- OUTSIDE RECORDS SUMMARY | 2025-02-21 01:11 | XMS_ITS | Clinical Summary ---
Author Organization [facility] Address [address], [facility] 1 [place] [address] Phone Care Team Providers Care Floor Worker Well Service Name Role Phone Sandra Bashir APRN, CNP Primary Care Provider + Sotero Garcias DO Unavailable [phone] Encounters Date Type Department Care Team Description 01/25/2025 Telephone [facility] [address] [address] Sotero Garcias, from Last 3 [...] Virus (HCV) Screening 1959 TdaP Immunization 1959 Pneumococcal Immunization (5 0+ years) (1 of 2 - PCV) 1978 Zoster Immunization (1 of 2) 1978 Cologuard 2004 Immunochemical Fecal Occult Blood 2004 PSA Discussion 2014 SARS-COV-2 Immunization (3 - Pfizer risk series) 08/25/2020 07/28/2020, 07/07/2020 Influenza Immunization (#1) 2025 Respiratory Syncytial Virus (RSV) Immunization (Adult) (1 [...] patient's age to complete [place] [address] MEDICARE [facility] Care Teams Floor Worker Well Service Relationship Specialty Start Date End Date Sandra Bashir APRN, CLOTHING PRESSER [address] [place] [address] [phone] PCP - General Family Medicine 12/02/24 Sotero Garcias DO [address] [place] [phone] Consulting Physician Oncology 12/05/24
--- OUTSIDE RECORDS SUMMARY | 2025-02-21 01:12 | XMS_ITS | Clinical Summary ---
Author Organization [facility] Address [address] [place] [address] Care Team Providers Care Melt House Supervisor Name Role Phone Unavailable Primary Care Provider [...] AQ) 55 mcg nasal spray Administer 1 [place] in each nostril daily. Active acetaminophen (TYLENOL) 325 mg tablet TAKE 2 TABLETS BY MOUTH EVERY 4 HOURS NEEDED 1 Active hydrALAZINE (APRESOLINE) 25 mg tablet TAKE 1 TABLET BY MOUTH TWICE A DAY 1 Active amLODIPine (NORVASC) 5 mg tablet Take 10 mg by mouth daily. 2 Active zolpidem (AMBIEN) 10 mg tabletIndication s:Insomnia, unspecified type TAKE 1 TABLET BY MOUTH NIGHTLY NEEDED FOR INSOMNIA 30 Tablet 5 Active Active Problems Problem Noted Date Diagnosed Date PV (polycythemia vera) 09/07/2019 Thrombocytosis 12/23/2017 Encounters Date Type Department Care Team Description 02/14/2025 Abstract [facility] Oncology and Hematology - [address] [place] [address] Efren Serrano MD 01/31/2025 Orders Only [facility] Oncology and Hematology - [address] [place] [phone] Efren Serrano MD 01/25/2025 11:15 AM CDT Office Visit [facility] Oncology and Hematology - [address] [place] [phone] Efren Serrano MD Leukocytosis, unspecified type (Primary Dx); Renal insufficiency 01/25/2025 Orders Only [facility] Oncology and Hematology - [address] [place] [phone] Provider, Abstract 01/25/2025 Telephone [facility] Oncology and Hematology - [address] [place] [address] Efren Serrano MD Labs for appt 01/24/2025 Telephone [facility] Oncology and Hematology - [address] Efren Serrano MD labs for appt 01/23/2025 Orders Only [facility] Oncology and Hematology - [address] [place] [phone] Efren Serrano MD 01/20/2025 Orders Only Initial Department [address] [facility] ATTN: [place] [address] Provider, Historical 01/20/2025 Orders Only [facility] Oncology and Hematology - [address] [place] [phone] Efren Serrano MD 01/16/2025 Refill [facility] Oncology and Hematology - [address] [facility] Efren Serrano MD Insomnia, unspecified type 12/14/2024 Refill [facility] Oncology and Hematology - [address] [facility] [place] [phone] Efren Serrano MD Insomnia, unspecified type 12/06/2024 Abstract [facility] Oncology and Hematology [address] [facility] [address] [place] [address] Efren Serrano MD 12/01/2024 Abstract [facility] Oncology and Hematology [address] [place] [address] Liam Flannery CMA from Last 3 Months Social History Tobacco Use Types Packs/Day Years Used Date Smoking Tobacco: Former Cigarettes Q uit: 12/23/1997 Smokeless Tobacco: Never Tobacco Cessation:Counseling Given: Not Answered Alcohol Use Standard Drinks/Week Comments Yes 0 (1 standard drink = 0.6 oz pur e alcohol) Sex and Gender Information Value Date Recorded Sex Assigned at Not on file Legal Sex Male 5:12 AM CLOTH BLEACHING SUPERVISOR Gender Identity Not on file Sexual [...] 02/28/2025 4:30 PM CDT Telephone Check Up [facility] Oncology and Hematology [facility] [address] [place] [address] Efren Serrano MD [address] [facility] [address] [place] [address] Health Maintenance Due Date Last Done Comments Pre-Diabetes and Diabetes Screening 1959 DTAP/TDAP/TD VACCINES (1 - Tdap) 1978 FIT-DNA Q 3 years 2004 FIT/FOBT Q 1 year 2004 Flex Sig/CT Colonography Q 5 years 2004 PNEUMOCOCCAL VACCINE 50+ YEA RS (1 of 1 - PCV) 2009 ZOSTER VACCINE (1 of 2) 2009 INFLUENZA VACCINE (#1) 2024 COVID-19 Vaccine (3 - season) 2025, 07/07/2020 RSV VACCINE (60+ or ) (1 - 1-dose 75+ series) 2034 COLORECTAL SCREENING 10/04/2034 10/04/2024, 10/05/19 Colorectal Cancer Screening 10/04/2034 Abdominal Aortic Aneurysm (AAA) Screening Completed 01/18/2025, 01/04/2018 Procedures Procedure Name Priority Date/Time Associated Diagnosis Comments BCR/ABL DIAGNOSTIC ASSAY W/REFLEX Routine 01/25/2025 8:02 AM CDT BASIC METABOLIC PANEL Routine 01/20/2025 1:36 PM CDT CBC WITH DIFFERENTIAL Routine 01/20/2025 9:23 AM CDT BASIC METABOLIC PANEL Routine 01/20/2025 9:23 AM CDT US ABDOMEN COMPLETE Routine 01/18/2025 8 :03 AM CDT FLOW CYTOMETRY REPORT Routine 12/05/2024 12:16 PM CDT from Last 3 Months Results * BCR/ABL DIAGNOSTIC ASSAY W/REFLEX (01/25/2025 8:02 AM CDT) us Efren Serrano MD BODY FLUIDS AND STOOLS COM Stephie l Result * BASIC METABOLIC PANEL (01/20/2025 1:36 PM CDT) Only the most recent of2 resultswithin the time period is included. Blood us Efren Serrano MD CHEMISTRY ORDERABLES Final Resu lt * (ABNORMAL) CBC WITH DIFFERENTIAL (01/20/2025 9:23 AM CDT) [facility] WBC 23.6(H) 3.8 - 10.8 Thousand/ uL [...] t Kei BASOPHILS 2 % [facility] BLAST 0 % [facility] NRBC 1(H) 0 /100 WBC [facility] mel[facility] COMMENT HEMATOLOGY [facility] Comment: The smear has been manually reviewed and the manual differential has been reported. Review of the peripheral smear reveals adequate numbers of platelets. Giant platelets noted. Tear-drop cells 1 + Schistocytes 1 + Anisocytosis 2 + [place] cells 1 + FASTING:YES AN UPDATE OR CORRECTION HAS BEEN MADE TO NAME FASTING: YES Test Performed at: [place] [address] [address] [place] [phone] [facility] 01/20/2025 9:23 AM CDT 01/20/2025 9:34 AM CDT Efren Serrano MD HEMATOLOGY ORDERABLES Final Res ult [facility] [phone] [place] [address] [address] [place] [phone] * US ABDOMEN COMPLETE (01/18/2025 8:03 AM CDT) Anatomical Region Laterality Modality Abdomen Ultrasound us Efren Serrano MD US ORDERABLES Final Result * FLOW CYTOMETRY REPORT (12/05/2024 12:16 PM CDT) us Abstract Provider PATHOLOGY/CYTOLOGY ORDERABLES Final Result from Last 3 [place] [address] [facility] BLUE OPTIONS BS BLUE OPTIONS
--- OUTSIDE RECORDS SUMMARY | 2025-02-21 01:12 | XMS_ITS | Encounter Summary ---
Author Organization [facility] Address [address] [place] [address] Care Team Providers Care Veneer Drier Tailer Name Role Phone Unavailable Primary Care Provider Unavailabl e Encounter Details Date Type Department Care Team (Late st Contact Info) Description 07/25/1999 Outpatient Historical HIS [facility] JUNG (Excluded Provider) Brady Jung MD [address] [place] [phone] Social History Tobacco Use Types Packs/Day Years Used Date Smoking Tobacco: Never Assessed Sex and Gender Information Value Date Recorded Sex Assigned at Not on file Legal Sex Male 5:12 AM TECHNOLOGY ANALYST Gender Identity Not on file Sexual Orientation Not on file documented as of this encounter Plan of Treatment Upcoming Encounters Date Type Department Care Team (Late st Contact Info) Description 02/28/2025 4:30 PM CDT Telephone Check Up [facility] Oncology and Hematology - Carl [address] [facility] [address] [place] [address] Efren Serrano MD [address] [facility] [address] [place] [address] documented as of this encounter Visit Diagnoses Not on filedocumented in this encounter
--- OUTSIDE RECORDS SUMMARY | 2025-02-21 01:12 | XMS_ITS | Encounter Summary ---
Author Organization [facility] Address [address] [place] [address] Care Team Providers Care Amusement Centre Manager Name Role Phone Unavailable Primary Care Provider Unavailabl e Encounter Details Date Type Department Care Team (Late st Contact Info) Description 07/31/1999 Outpatient Historical [facility] JUNG (Excluded Provider) Brady Jung MD [address] [place] [phone] Social History Tobacco Use Types Packs/Day Years Used Date Smoking Tobacco: Never Assessed Sex and Gender Information Value Date Recorded Sex Assigned at Not on file Legal Sex Male 5:12 AM ASSOCIATE ACCOUNT MANAGER Gender Identity Not on file Sexual Orientation Not on file documented as of this encounter Plan of Treatment Upcoming Encounters Date Type Department Care Team (Late st Contact Info) Description 02/28/2025 4:30 PM CDT Telephone Check Up [facility] Oncology and Hematology - Carl [address] [facility] [address] [place] [address] Efren Serrano MD [address] [facility] [address] [place] [address] documented as of this encounter Visit Diagnoses Not on filedocumented in this encounter
--- OUTSIDE RECORDS SUMMARY | 2025-02-21 01:12 | XMS_ITS | Encounter Summary ---
Author Organization [facility] Address [address] [place] [address] Care Team Providers Care Cabin Service Agent Name Role Phone Unavailable Primary Care Provider Unavailabl e Encounter Details Date Type Department Care Team (Late st Contact Info) Description 11/20/1998 Outpatient Historical HIS [facility] JUNG (Excluded Provider) Brady Jung MD [address] [place] [phone] Social History Tobacco Use Types Packs/Day Years Used Date Smoking Tobacco: Never Assessed Sex and Gender Information Value Date Recorded Sex Assigned at Not on file Legal Sex Male 5:12 AM DELIVERY STOCK CLERK Gender Identity Not on file Sexual Orientation Not on file documented as of this encounter Plan of Treatment Upcoming Encounters Date Type Department Care Team (Late st Contact Info) Description 02/28/2025 4:30 PM CDT Telephone Check Up [facility] Oncology and Hematology - Carl [address] [facility] [address] [place] [address] Efren Serrano MD [address] [facility] [address] [place] [address] documented as of this encounter Visit Diagnoses Not on filedocumented in this encounter
--- OUTSIDE RECORDS SUMMARY | 2025-02-21 01:12 | XMS_ITS | Encounter Summary ---
Author Organization [facility] Address [address] [place], [place] [address] [address] Care Team Providers Care Security Systems Technician Name Role Phone Unavailable Primary Care Provider Unavailabl e Encounter Details Date Type Department Care Team (Late st Contact Info) Description 02/12/2024 Lab Requisition [facility] - Pathology Lab [address] [place] [address] Howard Montaño MD [address] [facility] [address] [place] [address] Illness, unspecified Social History Tobacco Use Types Packs/Day Years Used Date Smoking Tobacco: Never Assessed Sex and Gender Information Value Date Recorded Sex Assigned at Not on file 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 There are no significantly increased fibrosis, and no increased blasts. Clinical correlation, and correlation with pending ancillary studies recommended. 02/15/2024 2:09 PM [facility] PATHOLOG[facility] LAB Bone Marrow Aspirate Severely hemodiluted with no spicules. Scattered trilineage hematopoiesis are seen with maturation. There are no increased blasts. 02/15/2024 2:09 PM [facility] PATHOLOG[facility] Bone Marrow Core Biopsy and [...] No ring sideroblasts seen. 02/15/2024 2:09 PM [facility] PATH[facility] Flow Cytometry Summary Bone marrow, flow cytometric immunophenotypic analysis ([id number]): - No diagnostic evidence of clonal B-cells or expanded T-cells, or acute leukemia. 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 02/15/2024 2:09 PM [facility] PATH[facility] Materials Received Received are 18 slide(s) and 3 Blocks labeled [id number] along with a copy of the outside pathology report. [place] [address]. All original materials are returned to the referring institution, along with a copy of our final report. 02/15/2024 2:09 PM T [facility] PATH[facility] Pathologist Location at [facility] 02/15/2024 2:09 PM CDT [facility] Disclaimer The performance characteristics of all immunohistochemical and indirect immunofluorescence stains (if any) cited in this report were determined by the Histopathology Laboratory of [facility]. Some of these tests were developed by [...] attending (teaching) pathologist. 02/15/2024 2:09 PM CDT [facility] Embedded Images 02/15/2024 2:09 PM CDT [facility] Pathology/Cytology BONE MARROW SPECIMEN / Unknown 02/11/2024 10:05 AM CDT 02/12/2024 2:37 PM CDT Miscellaneous samples (specimen) BONE MARROW SPECIMEN / Unknown 02/11/2024 10:05 AM CDT 02/12/2024 2:37 PM CDT Howard Montaño MD LAB - PATHOLOGY/CYT OLOGY ORDERABLES Final Result [facility] LAB [address] [place] [address], [facility] [phone] documented in this encounter Visit Diagnoses Diagnosis Illness, unspecified documented in this encounter
--- OUTSIDE RECORDS SUMMARY | 2025-02-21 01:12 | XMS_ITS | Encounter Summary ---
Author Organization [facility] Address 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 [address] [place] [address] documented as of this encounter Visit Diagnoses Diagnosis Sciatica- Primary documented in this encounter
--- OUTSIDE RECORDS SUMMARY | 2025-02-21 01:12 | XMS_ITS | Clinical Summary ---
Author Organization [facility] Address [address] [facility] [place] [address] Care Team Providers Care Milk Truck Driver Name Role Phone Unavailable Primary Care Provider Unavailabl e Source Comments [facility],non-owned Affiliates and Associated Physician Practices is amultiple site organization consisting of ambulatory clinics and hospital sitesin [place], [place], [place] and [place]. This disclosure is being madepursuant to the Care Everywhere program and may not contain all information available regarding this patient. 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 Gender Identity Not on file Sexual Orientation Not on file Plan of Treatment Health Maintenance Due Date Last Done Comments COLOGUARD (AGES 45-75) - COL ON CA SCREENING 1959 COLON MONITORING 1959 COLONOSCOPY - COLON CA SCREENING 1959 CT COLONOGRAPHY - COLON CA SCREENING 1959 Colorectal Cancer Screening 1959 FIT - COLON CA SCREENING 1959 FLEX SIG - COLON CA SCREENING 1959 HIV SCREENING 1974 DTAP/TDAP/TD VACCINES (1 - Tdap) 1978 PNEUMOCOCCAL VACCINE 50+ (1 of 1 - PCV) 2009 ZOSTER VACCINE (1 of 2) 2009 DEPRESSION SCREENING 05/11/2024 COVID-19 VACCINE (3 - 2024-2 6 season) 2025 07/28/2020, 07/07/2020 INFLUENZA VACCINE (#1) 2025 LIPID TESTING 04/07/2028 04/07/2023 Respiratory Syncytial Virus (RSV) Vaccine Pt: or over 60 yrs (1 - 1-dose 75+ series) 2034 HEPATITIS C SCREENING Completed 02/08/2025 HEPATITIS B VACCINE Aged Out No longe r eligible based on patient's age to complete this topic HIB VACCINE Aged Out No longer eligi ble based on patient's age to complete this topic HPV VACCINE Aged Out No longer eligi ble based on patient's age to complete this topic MENINGOCOCCAL (Group B) VACCINE SHARED DECISION-MAKING Aged Out No longer eligible based on patient's age to complete this topic MENINGOCOCCAL GROUPS A/C/Y/W VACCINE Aged Out No longer eligible b ased on patient's age to complete this topic Insurance MIRELA
--- OUTSIDE RECORDS SUMMARY | 2025-02-21 01:12 | XMS_ITS | Encounter Summary ---
Author Organization [facility] Address [address] [place], [place] [address] [address] Care Team Providers Care Financial Sales Manager Name Role Phone Unavailable Primary Care Provider Unavailabl e Encounter Details Date Type Department Care Team (Late st Contact Info) Description 02/11/2024 Lab Requisition [facility] - Pathology Lab [address] [place] [address] Howard Montaño MD [address] [facility] [address] [place] [address] Elevated white blood cell count, unspecified Social History Tobacco Use Types Packs/Day Years Used Date Smoking Tobacco: Never Assessed Sex and Gender Information Value Date Recorded Sex Assigned at Not on file 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 - See interpretation. 02/11/2024 2:39 PM [facility] PATH[facility] at 1439 CDT Flow Cytometry Interpretation Viability: 100% B-cells: Rare, polytypic, kappa:lambda ratio 0.76:1 T-cells: Present based on CD5 expression, and not further characterized Blasts: Rare detected, 1.6%, express CD34, CD33, CD13; negative for CD10, CD19, and CD20 Plasma cells: No significant population detected A bone marrow aspirate smear prepared from the flow cytometry specimen has been reviewed for quality engineering manager purposes. 02/11/2024 2:39 PM [facility] Flow Cytometry Results Differential Result Comment Flow Cell Count /uL 16,800 Total Viability % 100.0 Lymphocytes % 6 Dim CD45 Region % 6 Monocytes % 3 Granulocytes % 85 02/11/2024 2:39 PM [facility] Reason for test Elevated white blood cell count, unspecified 02/11/2024 2:39 PM [facility] Client Specimen ID # [id number] 02/11/2024 2:39 PM [facility] Number of markers 10 were performed. A-2 Flow CD10 A-3 Flow CD13 A-5 Flow CD20 A-1 Flow CD5 A-4 Flow CD19 A-6 Flow CD33 A-7 Flow CD34 A-8 Flow CD45 A-9 [place]+CD19+ A-10 Lambda+CD19+ 02/11/2024 2:39 PM [facility] Pathologist Location at [facility] 02/11/2024 2:39 PM [facility] Disclaimer Test performed at [facility], [address] [place] [address], [id number]. *The established laboratory minimum viability is 70%. [...] complexity clinical testing. 02/11/2024 2:39 PM CDT [facility] PATH[facility] Embedded Images 2:39 PM CDT [facility] Pathology/Cytolo gy BONE MARROW SPECIMEN / Unknown 02/11/2024 10:05 AM CDT 02/11/2024 11:59 AM CDT Howard Montaño MD LAB - PATHOLOGY/CYT OLOGY ORDERABLES Final Result [facility] [address] [place], [place] [id number] [place] [address] documented in this encounter Visit Diagnoses Diagnosis Elevated white blood cell count, unspecified documented in this encounter
--- OUTSIDE RECORDS SUMMARY | 2025-02-21 01:12 | XMS_ITS | Clinical Summary ---
Author Organization [facility] Address [address] [place] [address] Care Team Providers Care Precision Honer Name Role Phone None, Provider MD Unavailable Unavailable Sandra Bashir Primary Care Provider [phone] Troy Chan MD Unavailable [phone] Stuart Nelson MD Unavailable [phone] Joyce Berry Unavailable [phone] Allergies Active Allergy Reactions Criticality Noted Date Comments Oxycodone Other (see comment) 12/02/2024 Vivid dreams Sulfa Antibiotics Hives 08/09/2020 Sulfamethoxazole-Trimethopr im Hives 08/09/2020 Medications zolpidem (AMBIEN) 10 MG tablet Take 1 tablet (10 mg total) by mouth nightly as needed for Sleep. 023 Active levothyroxine (SYNTHROID) 50 MCG tabletIndication s:Acquired hypothyroidism Take 1 tablet (50 mcg total) by mouth every morning. 30 tablet 2 025 Active midodrine (PROAMATINE) 2.5 MG tabletIndication s:Hypotension Take 1 tablet (2.5 mg total) by mouth 3 (three) times daily with meals. Indications: Disorder of Low Blood Pressure 90 tablet 1 025 Active furosemide (LASIX) 20 MG tabletIndication s:Dilated Hypertrophic Cardiomyopathy Take 1 tablet (20 mg total) by mouth daily as needed (swelling, 3lb weight gain in 24 hours). Indications: Dilated Hypertrophic Cardiomyopathy 30 tablet 025 Active potassium chloride CR (KLOR-CON M) 10 MEQ tabletIndication s:Hypokalemia Take 1 tablet (10 mEq total) by mouth daily as needed (take only when you take a dose of prn lasix). Indications: Low Amount of Potassium in the Blood 30 tablet Active triamcinolone acetonide (NASACORT) 55 MCG/ACT nasal inhaler 2 sprays by Each Nostril route nightly. Active calcium carbonate (TUMS) 500 MG chewable tablet Chew 1 tablet (500 mg total) by mouth daily as needed for Heartburn. Active lisinopril (PRINIVIL) 10 MG tablet TAKE 1 TABLET BY MOUTH EVERY DAY 90 tablet 1 025 2024 Discontinued amLODIPine (NORVASC) 10 MG tablet TAKE 1 TABLET (10 MG) BY MOUTH EVERY DAY 90 tablet 1 025 2024 Discontinued(S top Taking at Discharge) aspirin 81 MG chewable tablet Chew 1 tablet (81 mg total) by mouth daily. 30 tablet 3 025 2024 Discontinued(E rror) hydroxyurea (HYDREA) 500 MG capsule Take 1 capsule (500 mg total) by mouth daily. 60 capsule 3 025 2024 Discontinued(E rror) metoprolol tartrate (LOPRESSOR) 50 MG tablet TAKE 1 TABLET BY MOUTH TWICE A DAY 180 tablet 025 2024 Discontinued(S top Taking at Discharge) lisinopril (PRINIVIL) 10 MG tablet TAKE 1 TABLET BY MOUTH EVERY DAY 90 tablet 2024 Discontinued(S top Taking at Discharge) doxycycline hyclate (VIBRAMYCIN) 100 MG capsule Take 1 capsule (100 mg total) by mouth 2 (two) times daily. 2024 Discontinued(S top Taking at Discharge) Active Problems Problem Noted Date Diagnosed Date Anasarca 02/07/2025 Superior mesenteric artery stenosis 01/11/2025 Celiac artery stenosis 01/11/2025 Bilateral renal artery stenosis 01/11/2025 Carotid stenosis, bilateral 01/11/2025 Femoral artery stenosis, right 01/03/2025 Massive parenchymal disruption of spleen, initia l encounter 12/01/2024 Chronic pain of right knee 07/21/2024 Primary osteoarthritis of right knee 07/21/2024 S/P kyphoplasty 08/20/2020 L1 vertebral fracture 08/10/2020 PV (polycythemia vera) 09/07/2019 Thrombocytosis 12/23/2017 BRAD (obstructive sleep apnea) Hypertension S/P AVR (aortic valve replacement) Resolved Problems Problem Noted Date Diagnosed Date Resolved Date Screening for colon cancer 06/22/2024 0 06/27/2024 Screening for colon cancer 06/22/2024 0 07/25/2024 Encounters Date Type Department Care Team Description 02/20/2025 8:09 AM CDT - 02/20/2025 1:33 PM CDT Hospital Encounter [facility] [place] [address] Troy Chan MD Arrived Discharge Disposition: Home or Self Care (Routine Discharge) 02/20/2025 Travel 02/19/2025 Telephone [facility] [address] Stuart Nelson MD Advice (Nurse Triage - After Hours ([id number])/) 02/19/2025 MyChart Message Enc [facility] [address] Stuart Nelson MD Weight gain 02/18/[address] [phone] Stuart Nelson MD Advice (Nurse Triage - After Hours ([id number])/) 02/17/2025 9:30 AM CDT Home Care Visit [facility] Home Care [place] [address] [address] [facility] [place] [phone] Angélica Osborn RN SN NON ADMIT SOC 02/16/2025 Hospital Follow-up Call [facility] [place] [address] Salima Peres LPN Follow Up Call ([place] 02/08-02/15/25) 02/15/2025 Telephone [facility] Medical Group Family & Internal Medicine [address] [phone] Sandra Bashir APNP TCM 02/14/2025 Prep for Procedure [facility] [place] [address] Troy Chan MD 02/14/2025 Prep for Procedure [facility] [place] [facility], [address] [address] Troy Chan MD 02/14/2025 Hospital Orders Only [facility] [place] [address] Troy Chan MD 02/14/2025 Telephone [place] [address] [address] [facility] [place] [address] Sandra Bashir APNP Advise 02/14/2025 Telephone [facility] [address] [address] Troy Chan MD Schedule Procedure 02/10/2025 Telephone [facility] [address] [address] Troy Chan MD Information ([place], [place]) 02/07/2025 3:34 PM CDT - 02/15/2025 12:10 PM CDT Hospital Encounter [facility] [place] [address] Sy Painting MD D'Souza, Dominique C, MD Elayyan, Ibrahim B, MD Goldberg, Sandra, MD Palumbo, Clemencia L, DO Edema Discharge Disposition: Home with Home Health Care 02/07/2025 10:00 AM CDT - 02/07/2025 3:33 PM CDT Hospital Encounter [facility] [place] [address] Betsy Duffy MD Discharge Disposition: Home or Self Care (Routine Discharge) 02/07/2025 9:15 AM CDT Office Visit [address] [address] Stuart Nelson MD Aortic Valve Stenosis (6 mo follow up) 02/07/2025 Travel 01/31/2025 Results Follow-Up [address] [address] Linette Silverman, MEDICARE BILLER USE ECHOCARDIOGRAM 01/26/2025 8:15 AM CDT - 01/26/2025 11:59 PM CDT Hospital Encounter [facility] [place] [address] Zenaida Simon, MEDICAL RECORDS CLERK-C Discharge Disposition: Home or Self Care (Routine Discharge) 01/26/2025 8:00 AM CDT - 01/26/2025 8:14 AM CDT Hospital Encounter [facility] [place] [address] Betsy Duffy MD Discharge Disposition: Home or Self Care (Routine Discharge) 01/26/2025 Travel 01/25/2025 Scan [facility] Scanned, [facility] Lab (SCAN) 01/18/2025 Scan [facility] Scanned, [facility] Ultrasound (SCAN) 01/12/2025 Scan [facility] Scanned, [facility] 01/11/2025 9:00 AM CDT Office Visit [address] [place] [address] Betsy Duffy MD Consult 01/11/[address] [address] Stuart Nelson MD Surgical Clearance 01/11/2025 Travel 01/03/2025 9:00 AM CDT Telemedicine [address] [address] Sandra Bashir APNP Lab Results 01/03/2025 Travel 12/29/2024 Results Follow-Up [address] [phone] Sandra Bashir APLILIANA COMPREHENSIVE METABOLIC PANEL, CBC W/DIFF AUTOMATED, GGT, GAMMA GLUTAMYLTRANSFERASE, Additional followed-up results: 4 12/16/[address] [address] Betsy Duffy MD Appointment Request 12/15/[address] [phone] Sandra Bashir APNP Results 12/13/2024 8:20 AM CDT Telemedicine [address] [phone] Sandra Bashir APLILIANA TCM (Pt was admitted to [facility] 12/01 - 12/04 for PV, leukocytosis, and massive parenchymal disruption of spleen. Pt also notes hospitalist mentioned he might have an overactive thyroid. ) 12/13/[address] [phone] Sandra Bashir APNP Referral 12/13/2024 Travel 12/05/[address] [phone] Sandra Bashir APNP TCM 12/01/2024 3:07 PM CDT - 12/04/2024 2:11 PM CDT Hospital Encounter [facility] Med/Surg 5th [place] [address] Kassidy Stokes, COOK SHORT ORDER Raine Love MD Jerkovich, Adria, MD Usman, Ahsan, MD Abdominal Pain; Finger Injury Discharge Disposition: Home or Self Care (Routine Discharge) 12/01/2024 Travel 11/23/2024 Scan [facility] Scanned, [facility] from Last 3 Months Immunizations Immunization Administration Dates Next Due PFIZER COVID-19 (ORIGINAL FO RMULATION, PURPLE CAP) mRNA, LNP-S, PF, 30 MCG/0.3 ML DOSE 07/28/2020,07/07/2020 Family History Medical History Relation Comments Cancer Brother 1 Hodgkin's Lympho ma COPD Father Colon polyps Father Heart Disease Father Diabetes Maternal Grandmother Anemia Mother Obesity Mother Relation Status Comments Brother 1 Brother 2 Brother 3 Alive Father Maternal Grandmother Mother Sister Social History Tobacco Use Types Packs/Day Years Used Date Smoking Tobacco: Never Passive Smoke Exposure: Never Smokeless Tobacco: Never Tobacco Cessation:Counseling Given: Not Answered Alcohol Use Standard Drinks/Week Comments Not Currently 0 (1 standard drink = 0.6 oz pur e alcohol) [facility] Utilities Answer Date Recorded In the past 12 months has [facility] [employer], oil, or water Perfect [employer]ience threatened to shut off services in your [...] any time in the past 12 m [facility], were you homeless or living in a longterm (including now)? No 02/07/2025 Sex and Gender Information Value Date Recorded Sex Assigned at Male 06/22/2024 8:06 AM MANGLE TENDER Legal Sex Male 7:43 PM CDT Gender Identity Male 06/22/2024 8:06 AM MANGLE TENDER Sexual Orientation Not on file Last Filed Vital Signs Vital Sign Reading Time Taken Comments Blood Pressure 115/61 02/20/2025 8:00 AM CDT Pulse 83 02/20/2025 8:00 AM CDT Temperature 36.4 C (97.5 F) 02/15/2025 10:29 AM CDT Respiratory Rate 16 02/20/2025 8:00 AM CDT Oxygen Saturation 100% 02/20/2025 8:00 AM CDT Inhaled Oxygen Concentration - - Weight 96.2 kg (212 lb) 02/20/2025 8:00 AM CDT Height 190.5 cm (6' 3) 02/20/2025 8:00 AM CDT Body Mass Index 26.5 02/20/2025 8:00 AM CDT Plan of Treatment Upcoming Encounters Date Type Department Care Team (Late st Contact Info) Description 02/16/2025 11:59 PM CDT Anesthesia Event [facility] [place] [address] Basia Larkin CNP [address] [place] [address] 02/22/2025 8:00 AM CDT Appointment [facility] [place] [address] Troy Chan MD 3 [facility] [address] [place] [address] 02/24/2025 11:20 AM CDT Office Visit [facility] Medical Group Family & Internal Medicine - [place] [address] [place] [address] Sandra Bashir APNP [address] [place] [address] 09/21/2025 10:00 AM CDT Office Visit [facility] - [address], [address] [place] [phone] Kervin Rossi MD [address] [address] Health Maintenance Due Date Last Done Comments ASCVD Statin 1959 DTaP, Tdap and Td Vaccines (1 - Tdap) 1978 Pneumococcal Vaccine: 50+ Years (1 of 2 - PCV) 1978 Zoster Vaccines (1 of 2) 2009 RSV Immunization or 60+ Years (1 - Risk 60-74 years 1-dose series) 2019 ASCVD LDL 04/07/2024 04/07/2023, 09/24/2020 PHQ-2 (Physician [place]) 05/11/2024 COVID-19 Vaccine (2024- season) 2025 04/11/2022, 02/15/2021, 07/28/2020, Additional history exists Influenza Adult (#1) 2025 Colorectal Cancer Screening Colonoscopy (10 Years) 10/04/2034 10/04/2024, 10/04/2024 Hepatitis C Completed 02/08/2025 Hepatitis A Vaccines Aged Out No long er eligible based on patient's age to complete this topic Meningococcal B Vaccine Aged Out No l onger eligible based on patient's age to complete this topic Meningococcal Vaccine Aged Out No paul geoffrey eligible based on patient's age to complete this topic RSV Immunizations Under 20 Months Aged Out No longer eligible based on patient's age to complete this topic Goals Goal Patient Goal Type Associated Problems Recent Progress Patient-Stated? Author Health - patient able to perform ADLs independently General No Shara Estevez, RN Patient will return to prior living situation and remain independent in ADLs upon discharge from hospital Lifestyle No Francheska Field, RN Monitor - able to maintain pain control Lifestyle No Srinivas Perkins, RN Medical Devices Implanted Type Area Casting Tester Device Identifier Shelf Expiration Date Model / Serial / Lot Vertaplex Hv Implanted:Qty : 1 on 08/11/2020 by Larry Campbell MD at [facility] Cement Implant [employer] DIV [employer]ab [id number] 01/08/[id number] / / [id number] Description:L1, L2 Procedures Procedure Name Priority Date/Time Associated Diagnosis Comments XR CHEST PA+LAT Routine 02/20/2025 9:38 AM CDT TYPE & SCREEN STAT 02/20/2025 8:43 AM CDT PARTIAL THROMBOPLASTIN TIME,PTT STAT 02/20/2025 8:43 AM CDT PROTHROMBIN TIME, VENOUS STAT 8:43 AM CDT COMPREHENSIVE METABOLIC PANEL STAT 02/20/2025 8:43 AM CDT CBC W/DIFF AUTOMATED STAT 02/20/2025 8:43 AM CDT COMPREHENSIVE METABOLIC PANEL Routine 02/15/2025 6:12 AM CDT CBC W/DIFF AUTOMATED Routine 02/15/2025 6:[address] TAVR HEART Today 02/14/2025 10:43 AM CDT CTA TAVR Routine 02/14/2025 10:43 AM CDT COMPREHENSIVE METABOLIC PANEL Routine 02/14/2025 6:24 AM CDT CBC W/DIFF AUTOMATED Routine 02/14/2025 6:24 AM CDT COMPREHENSIVE METABOLIC PANEL Routine 02/13/2025 3:16 AM CDT CBC W/DIFF AUTOMATED Routine 02/13/2025 3:16 AM CDT COMPREHENSIVE METABOLIC PANEL Routine 02/12/2025 7:48 AM CDT CBC W/DIFF AUTOMATED Routine 02/12/2025 7:48 AM CDT XR CHEST PORTABLE TIMED 02/11/2025 12:01 PM CDT COMPREHENSIVE METABOLIC PANEL Routine 02/11/2025 5:46 AM CDT CBC W/DIFF AUTOMATED Routine 02/11/2025 5:46 AM CDT COMPREHENSIVE METABOLIC PANEL Routine 02/10/2025 6:03 AM CDT CBC W/DIFF AUTOMATED Routine 02/10/2025 6:03 AM CDT IRON SAT PANEL (IRON,IBC,%SAT) Routine 02/09/2025 4:43 PM CDT FERRITIN Routine 02/09/2025 4:43 PM CDT ANTI-MITOCHONDRIAL AB: Routine 4:43 PM CDT ANTI-SMOOTHMUSCLE AB: Routine 02/09/2025 4:43 PM CDT ANTINUCLEAR ANTIBODY WI RFX Routine 02/09/2025 4:43 PM CDT COMPREHENSIVE METABOLIC PANEL Routine 02/09/2025 12:12 PM CDT GI PANEL PCR - STOOL STAT 02/08/2025 5:35 PM CDT OCCULT BLOOD, FECES STAT 02/08/2025 5 :35 PM CDT HAPTOGLOBIN, QUANT Routine 02/08/2025 3: 33 PM CDT LDH, LACTATE DEHYDROGENASE Routine 02/08/2025 3:33 PM CDT US GD PARACENT W IMAGING Today 025 3:12 PM CDT ALBUMIN BODY FLUID Routine 02/08/2025 2: 25 PM CDT AMYLASE FLUID Routine 02/08/2025 2:25 PM CDT HC PH BODY FLUID Routine 02/08/2025 2:25 PM CDT HC GLUCOSE BODY FLUID Routine 02/08/2025 2:25 PM CDT PROTEIN TOTAL FLUID Routine 02/08/2025 2 :25 PM CDT LDH BODY FLUID Routine 02/08/2025 2:25 PM CDT CULTURE, FUNGUS W/ STAIN Routine 025 2:25 PM CDT HC BODY FLUID CULTURE Routine 02/08/2025 2:25 PM CDT LACTIC ACID STAT 02/08/2025 9:05 AM CDT TROPONIN, QUANT STAT 02/08/2025 2:[address], AUTO STAT 02/08/2025 2:55 AM CDT FERRITIN STAT 02/08/2025 2:55 AM CDT IRON SAT PANEL (IRON,IBC,%SAT) STAT 02/08/2025 2:55 AM CDT FOLIC ACID SERUM STAT 02/08/2025 2:55 AM CDT VITAMIN B-12 STAT 02/08/2025 2:55 AM CDT HEPATITIS PANEL,ACUTE STAT 02/08/2025 2:55 AM CDT COMPREHENSIVE METABOLIC PANEL STAT 02/08/2025 2:55 AM CDT CBC W/DIFF AUTOMATED STAT 02/08/2025 2:55 AM CDT PHOSPHORUS, INORGANIC PHOSPHATE STAT 02/08/2025 2:55 AM CDT PARTIAL THROMBOPLASTIN TIME,PTT STAT 02/08/2025 2:55 AM CDT PROTHROMBIN TIME, VENOUS STAT 025 2:55 AM CDT AMMONIA Routine 02/08/2025 2:50 AM CDT TYPE & SCREEN STAT 02/08/2025 2:40 AM CDT CYTOLOGY GENERIC Routine 02/08/2025 12:00 AM CDT HC URINALYSIS AUTO W/O MICRO STAT 02/07/2025 11:16 PM CDT CULTURE, BACTERIA, BLOOD STAT 025 10:54 PM CDT CULTURE, BACTERIA, BLOOD STAT 025 10:54 PM CDT TROPONIN, QUANT STAT 02/07/2025 10:35 PM CDT PROCALCITONIN (PCT) Routine 02/07/2025 10:35 PM CDT ETHANOL Routine 02/07/2025 10:35 PM CDT MAGNESIUM Routine 02/07/2025 10:35 PM CDT CK (CPK) Routine 02/07/2025 10:35 PM CDT LIPASE Routine 02/07/2025 10:35 PM CDT POCT GLUCOSE - DOCKED DEVICE Routine 02/07/2025 10:[address] CHEST+ABD+PEL WO CON STAT 02/08/20 6:06 PM CDT ECG 12-LEAD Routine 02/07/2025 4:12 PM CDT THYROXINE, FREE (FT4) STAT 02/07/2025 3:40 PM CDT THYROID STIM HORMONE TSH Routine 025 3:40 PM CDT PRO-BRAIN NATRIURETIC PEPTIDE STAT 02/07/2025 3:40 PM CDT TROPONIN, QUANT STAT 02/07/2025 3:40 PM CDT COMPREHENSIVE METABOLIC PANEL STAT 02/07/2025 3:40 PM CDT CBC W/DIFF AUTOMATED STAT 02/07/2025 3:40 PM CDT XR CHEST PORTABLE STAT 02/07/2025 3:3 5 PM CDT USV ART REST W LIGIA LOW EXT Routine 02/07/2025 1:41 PM CDT Femoral artery stenosis, right USV ABD PEL OR RETRO DUPLEX COMP Routine 02/07/2025 1:41 PM CDT Superior mesenteric artery stenosis (HHS/HCC) Celiac artery stenosis Bilateral renal artery stenosis USE ECHOCARDIOGRAM Routine 01/26/2025 10:32 AM CDT S/P AVR (aortic valve replacement) USV CAROTID DUPLEX CLIVE Routine 9:17 AM CDT Carotid stenosis, bilateral OUTSIDE LAB (SCAN ORDER) 01/25/2025 ULTRASOUND GENERIC (SCAN ORDER) 01/18/2025 LDH, LACTATE DEHYDROGENASE Routine 12/28/2024 7:58 AM CDT Elevated liver enzymes GGT, GAMMA GLUTAMYLTRANSFERASE Routine 12/28/2024 7:58 AM CDT Elevated liver enzymes THYROXINE, FREE (FT4) Routine 12/28/2024 7:58 AM CDT Acquired hypothyroidism THYROID STIM HORMONE TSH Routine 025 7:58 AM CDT Acquired hypothyroidism CBC W/DIFF AUTOMATED Routine 12/28/2024 7:58 AM CDT Anemia, unspecified type COMPREHENSIVE METABOLIC PANEL Routine 12/28/2024 7:58 AM CDT Elevated liver enzymes PROSTATE SPECIFIC ANTIGEN,SCREENING Routine 12/28/2024 7:58 AM CDT Prostate cancer screening COMPREHENSIVE METABOLIC PANEL Routine 12/04/2024 12:00 PM CDT CBC W/DIFF AUTOMATED Routine 12/04/2024 12:00 PM CDT MISCELLANEOUS LAB TEST Routine 3:53 PM CDT FLOW CYTOMETRY, PERIPHERAL BLD Routine 12/03/2024 3:53 PM CDT DIRECT BILIRUBIN Routine 12/03/2024 3:53 PM CDT COMPREHENSIVE METABOLIC PANEL Routine 12/03/2024 4:33 AM CDT CBC W/DIFF AUTOMATED Routine 12/03/2024 4:33 AM CDT PARTIAL THROMBOPLASTIN TIME,PTT Routine 12/02/2024 5:35 AM CDT GGT, GAMMA GLUTAMYLTRANSFERASE Routine 12/02/2024 5:35 AM CDT FIBRINOGEN Routine 12/02/2024 5:35 AM CDT LDH, LACTATE DEHYDROGENASE Routine 12/02/2024 5:35 AM CDT THYROID STIM HORMONE TSH Routine 025 5:35 AM CDT HEMOGLOBIN, GLYCOSYLATED Routine 025 5:35 AM CDT MAGNESIUM Routine 12/02/2024 5:35 AM CDT COMPREHENSIVE METABOLIC PANEL Routine 12/02/2024 5:35 AM CDT PROTHROMBIN TIME, VENOUS Routine 025 5:35 AM CDT CBC W/DIFF AUTOMATED Routine 12/02/2024 5:35 AM CDT HC URINALYSIS AUTO W/O MICRO STAT 12/01/2024 6:[address] ABD+PEL W CON STAT 12/01/2024 3:41 PM CDT ECG 12-LEAD Routine 12/01/2024 3:17 PM CDT LIPASE STAT 12/01/2024 3:14 PM CDT TROPONIN, QUANT STAT 12/01/2024 3:14 PM CDT COMPREHENSIVE METABOLIC PANEL STAT 12/01/2024 3:14 PM CDT CBC W/DIFF AUTOMATED STAT 12/01/2024 3:14 PM CDT COLONOSCOPY GENERIC (SCAN ORDER) 10/04/2024 LIPID PANEL Routine 04/07/2023 from Last 3 Months or Most Recently Relevant to Health Maintenance Results * XR CHEST PA+LAT (02/20/2025 9:38 AM CDT) Anatomical Region Laterality Modality Chest Radiographic Viviana ging 02/20/2025 9:43 AM CDT Impressions 02/20/2025 11:39 AM CDT IMPRESSION: Probable pulmonary edema and small pleural effusions. The attending radiologist has reviewed the image(s) and agrees with the content of this report. Ordered By: TROY CHAN Interpreted By: Irvin Stewart MD, 02/20/2025 9:43 AM Narrative 02/20/2025 11:39 AM CDT [address] [address] PROCEDURE: XR CHEST PA+LAT. 02/20/2025 9:26 AM. [...] Procedure Note Matt Lizama MD - 02/20/[address] [address] PROCEDURE: XR CHEST PA+LAT. 02/20/2025 9:26 AM. [...] with thecontent of this report. Ordered By: TROY CHAN Interpreted By: Irvin Stewart MD, 02/20/2025 9:43 AM Troy Chan MD GENERAL IMAGING Final Re sult * TYPE & SCREEN - Verify expiration date is current (02/20/2025 8:43 AM CDT) Only the most recent of2 resultswithin the time period is included. ABO/RH O POSITIVE 02/20/2025 9:40 AM CDT [facility] ANTIBODY SCREEN NEGATIVE 02/20/2025 9:40 AM CDT [facility] SAMPLE EXPIRATION 02/23/2025,2 359 02/20/2025 9:40 AM CDT [facility] 02/20/2025 8:43 AM CDT Troy Chan MD BLOOD BANK TEST ORDERABL ES Final Result [address] [address], [place] [phone] * (ABNORMAL) THROMBOPLASTIN TIME PARTIAL,PTT (02/20/2025 8:43 AM CDT) Only the most recent of3 resultswithin the time period is included. PTT 37.4(H) 25.1 - 36.5 SEC 02/20/2025 9:16 AM CDT [facility] 02/20/2025 8:43 AM CDT Troy Chan MD LABORATORY Final Re sult [facility] [address] [place] [phone], * (ABNORMAL) PROTIME/INR, VENOUS (02/20/2025 8:43 AM CDT) Only the most recent of3 resultswithin the time period is included. PROTIME 14.4(H) 10.2 - 12.9 SEC 02/20/2025 9:16 AM CDT [facility] INR 1.2 02/20/2025 9:16 AM CDT [facility] Comment: Recommended INR Therapeutic Goals: 2.0-3.0 Routine Therapy 2.5-3.5 Mechanical Prosthetic Valves (High Risk) 02/20/2025 8:43 AM CDT Troy Chan MD LABORATORY Final Re sult [facility] [address] [place] [address], [place] [phone] * (ABNORMAL) COMPREHENSIVE METABOLIC PANEL (02/20/2025 8:43 AM CDT) Only the most recent of15 resultswithin the time period is included. [facility] GLUCOSE 99 70 - 99 MG/DL 02/20/2025 9:23 AM CDT [facility] BUN 30(H) 7 - 18 MG/DL 02/20/2025 9:23 AM CDT [facility] CREATININE S/P/B 2.15(H) 0.7 - 1.3 MG/DL 02/20/2025 9:23 AM CDT [facility] SODIUM S/P/B 133(L) 136 - 145 MMOL/L 02/20/2025 9:23 AM CDT [facility] POTASSIUM S/P/B 4.1 3.5 - 5.1 MMOL/L 02/20/2025 9:23 AM CDT [facility] CHLORIDE S/P/B 104 97 - 115 MMOL/L 02/20/2025 9:23 AM CDT [facility] CO2 19.6(L) 21 - 32 MMOL/L 02/20/2025 9:23 AM CDT [facility] CALCIUM S/P/B 9.1 8.5 - 10.1 MG/DL 02/20/2025 9:23 AM CDT [facility] BILIRUBIN TOTAL S/P/B 1.7(H) 0.2 - 1.2 MG/DL 02/20/2025 9:23 AM T [facility] Comment: THIS ASSAY IS NOT RECOMMENDED FOR PATIENTS UNDERGOING TREATMENT WITH ELTROMBOPAG DUE TO THE POTENTIAL FOR FALSELY ELEVATED RESULTS. TOTAL PROTEIN S/P/B 6.4 6.4 - 8.2 G/DL 02/20/2025 9:23 AM T [facility] ALBUMIN S/P/B 3.2(L) 3.4 - 5.0 G/DL 02/20/2025 9:23 AM T [facility] AST 24 15 - 37 U/L 02/20/2025 9:23 AM T [facility] ALT 15(L) 16 - 60 U/L 02/20/2025 9:23 AM T [facility] ALKALINE PHOSPHATASE S/P/B 291(H) 50 - 136 U/L 02/20/2025 9:23 AM T [facility] ANION GAP 9.4 2 - 10 MMOL/L 02/20/2025 9:23 AM T [facility] BUN CREATININE RATIO 14.0 6 - 26 02/20/2025 9:23 AM T [facility] A/G RATIO 1.0 1.0 - 2.0 RATIO 02/20/2025 9:23 AM CDT [facility] GFR ESTIMATE 33(L) >90 ML/MIN/1.7 3 M2 02/20/2025 9:23 AM CDT [facility] Comment: NOTE: eGFR is not calculated for patients <18 years of age or gender unknown. This is an estimated GFR calculation using the new CKD EPI creatinine equation without race and so does not require a correction factor for race. This estimated GFR should not be used for calculating drug doses. 02/20/2025 8:43 AM CDT us Troy Chan MD LABORATORY Final Re sult [facility] [address] [place] [address], [place] [phone] * (ABNORMAL) CBC W/DIFF AUTOMATED (02/20/2025 8:43 AM CDT) Only the most recent of14 resultswithin the time period is included. WBC 19.22(H) 4.5 - 11.0 x10'3/uL 02/20/2025 9:14 AM CDT [facility] RBC 2.91(L) 4.70 - 6.10 x10'6/uL 02/20/2025 9:14 AM CDT [facility] HGB 8.9(L) 14.0 - 18.0 G/DL 02/20/2025 9:14 AM CDT [facility] HCT 26.9(L) 43.0 - 54.0 % 02/20/2025 9:14 AM CDT [facility] MCV 92.4 80.0 - 94.0 FL 02/20/2025 9:14 AM CDT [facility] MCH 30.6 27.0 - 31.0 PG 02/20/2025 9:14 AM CDT [facility] [facility] MCHC 33.1 32.0 - 36.0 G/DL 02/20/2025 9:14 AM CDT [facility] RDW 17.8(H) 11.5 - 14.5 % 02/20/2025 9:14 AM CDT [facility] PLT 555(H) 130 - 400 x10'3/uL 02/20/2025 9:14 AM CDT [facility] MPV 10.6 9.3 - 12.2 FL 02/20/2025 9:14 AM CDT [facility] DIFFERENTIAL TYPE MANUAL DIFFERENTIAL 02/20/2025 9:45 AM CDT [facility] SEG NEUTROPHILS 77 % 9:45 AM CDT [facility] LYMPHOCYTES 6 % 02/20/2025 9:45 AM CDT [facility] ATYP. LYMPHS 2 % 02/20/2025 9:45 AM CDT [facility] MONOCYTES 3 % 02/20/2025 9:45 AM CDT [facility] EOSINOPHILS 3 % 02/20/2025 9:45 AM CDT [facility] BASOPHILS 2 % 02/20/2025 9:45 AM CDT [facility] BANDS 3 % 02/20/2025 9:45 AM CDT [facility] METAMYELOCYTES 2 % 02/20/2025 9:45 AM CDT [facility] MYELOCYTES 1 % 02/20/2025 9:45 AM CDT [facility] PROMYELOCYTES 1 % 02/20/2025 9:45 AM CDT [facility] ABS. NEUTROPHILS 15.38(H) 1.80 - 7.70 x10'3/uL 02/20/2025 9:45 AM CDT [facility] ABS. LYMPHOCYTES 1.54 1.00 - 4.80 x10'3/uL 02/20/2025 9:45 AM CDT [facility] ABS. MONOCYTES 0.58 0.30 - 0.82 x10'3/uL 02/20/2025 9:45 AM CDT [facility] ABS. EOSINOPHILS 0.58(H) 0.04 - 0.54 x10'3/uL 02/20/2025 9:45 AM CDT [facility] ABS. BASOPHILS 0.38(H) 0.01 - 0.08 x10'3/uL 02/20/2025 9:45 AM CDT [facility] ABS. METAMYELOCYTES 0.38(H) 0.00 x10'3/uL 02/20/2025 9:45 AM CDT [facility] ABS. MYELOCYTES 0.19(H) 0.00 x10'3/uL 02/20/2025 9:45 AM CDT [facility] ABS. PROMYELOCYTES 0.19(H) 0.00 x10'3/uL 02/20/2025 9:45 AM CDT [facility] RBC MORPHOLOGY SLIDE REVIEWED 2024 9:45 AM CDT [facility] POIKLO 1+ 02/20/2025 9:45 AM CDT [facility] PLT EST. INCREASED 02/20/2025 9:45 AM CDT [facility] 02/20/2025 8:43 AM CDT us Troy Chan MD LABORATORY Final Re sult [facility] [address] [place] [address], [place] [phone] * CTA TAVR (02/14/2025 10:43 AM CDT) Anatomical Region Laterality Modality Chest Computed Tomogra phy 02/17/2025 3:46 PM CDT Impressions 02/17/2025 4:05 PM CDT IMPRESSION: 1. Aortic valvular complex and other cardiac findings interpreted by cardiology service. 2. Pulmonary edema and small bilateral pleural effusions. 3. Hepatosplenomegaly. 4. Small/moderate ascites. 5. Anasarca. 6. Diffusely increased bone mineral density throughout the axial and appendicular skeleton. Possible renal osteodystrophy. Cannot exclude metastasis. 7. Prominent mediastinal, right hilar, and right subclavicular lymph nodes. Indeterminate etiology. Possibly reactive. 8. Cholelithiasis. 9. Distended urinary bladder. 10. Diverticulosis without diverticulitis. Ordered By: MANJETE CHEUNG Interpreted By: Matt Lizama MD, 02/17/2025 3:46 PM Narrative 02/17/2025 4:[address] PM [address]T [address] [address] EXAMINATION: CTA HEART WITH AND WITHOUT CONTRAST, LUNG OVER READ. CTA CHEST, ABDOMEN/PELVIS WITH CONTRAST. TAVR PROTOCOL. CLINICAL HISTORY: Aortic valve stenosis. TAVR evaluation. COMPARISON: CT chest abdomen pelvis on 02/07/2025. TECHNIQUE: Computed tomography angiography of the heart was obtained before and after administration of intravenous contrast without immediate complication according to the TAVR ECG gated protocol. A total of 100 mL of Isovue-370 intravenous contrast was administered. Calcium score of aortic valve obtained. Computed tomography angiography of the chest, abdomen and pelvis was obtained after the completion of CT chest without ECG gating. 3-D curved MPR, MIP and volume rendered images were obtained and interpreted at a separate dedicated 3-D workstation. A dose lowering technique was used for this procedure, which may include, but is not limited to, dose reduction technique, automated exposure control, the use of iterative reconstruction, and ALARA (As Low As Reasonably Achievable) / Image Gently techniques. FINDINGS: I. CT chest: CARDIOVASCULAR FINDINGS: AORTIC VALVULAR COMPLEX AND OTHER CARDIAC FINDINGS: Interpreted by cardiology service. EXTRACARDIAC FINDINGS: Expiration images chest. No pneumothorax. Small bilateral pleural effusions. Dependent groundglass opacities and interlobular septal thickening. Aortic valve prosthesis. Atherosclerotic thoracic aorta. Possible ascending thoracic aortic graft repair. Prominent mediastinal lymph nodes measuring up to 1.4 cm. Right hilar lymph node measuring up to 1.6 cm. Prominent right subclavicular lymph node measuring up to 0.[address] abdomen/pelvis: VASCULAR FINDINGS: Abdominal aorta:Atherosclerotic abdominal aorta without aneurysm or stenosis. Celiac artery, superior mesenteric artery, and inferior mesenteric artery:Atherosclerosis. Right renal artery:Atherosclerosis. Left renal artery:Atherosclerosis. QUANTITATIVE MEASUREMENTS (min-max diameters) Distal aorta just above the bifurcation: 1.16.9 x 16.3 millimeters. 30% circumferential calcification. Right pelvic arteries: 1. Right common iliac artery:13.7 x 10.5 millimeters. 30% circumferential calcification. 2. Right external iliac artery:7.7 x 7.3 millimeters. 10% circumferential calcification. 3. Right common femoral artery:8.6 x 3.9 millimeters. 60% circumferential calcification. Left pelvic arteries: 1. Left common iliac artery:10.5 x 9.6 millimeters. 30% circumferential calcification. 2. Left external iliac artery:10.6 x 9.3 millimeters. 0% circumferential calcification. 3. Left common femoral artery:8.8 x 8.5 millimeters. 30% circumferential calcification. NONVASCULAR FINDINGS: Hepatomegaly. Splenomegaly. Calcified gallstones. Pancreas and adrenal glands are normal. Kidneys enhance symmetrically and promptly. Probable renal cysts (no further follow-up recommended according consensus guidelines). No hydronephrosis. No retroperitoneal hematoma. Retroaortic left renal vein. Diverticulosis without diverticulitis. Normal appendix. No free air. Mesenteric edema. Small/moderate ascites. Free pelvic fluid. Distended urinary bladder. Pelvic vascular arterial calcifications. Subcentimeter inguinal and pelvic lymph nodes. III. CT BONES: Sternotomy wires. Subcutaneous edema. Diffusely increased bone mineral density throughout the axial and appendicular skeleton. Multiple vertebroplasty changes in the lumbar spine. Procedure Note Matt Lizama MD - 02/17/2025 [facility] [address] [place], [place] [address] EXAMINATION: CTA HEART WITH AND WITHOUT CONTRAST, LUNG OVER READ. CTACHEST, ABDOMEN/PELVIS WITH CONTRAST. TAVR PROTOCOL. CLINICAL HISTORY: Aortic valve stenosis. TAVR evaluation. COMPARISON: CT chest abdomen pelvis on 02/07/2025. TECHNIQUE: Computed tomography angiography of the heart was obtainedbefore and after administration of intravenous contrast without immediatecomplication according to the TAVR ECG gated protocol. A total of 100 mLof Isovue-370 intravenous contrast was administered. Calcium score ofaortic valve obtained. Computed tomography angiography of the chest,abdomen and pelvis was obtained after the completion of CT chest withoutECG gating. 3-D curved MPR, MIP and volume rendered images were obtainedand interpreted at a separate dedicated 3-D workstation. A dose loweringtechnique was used for this procedure, which may include, but is notlimited to, dose reduction technique, automated exposure control, the useof iterative reconstruction, and ALARA (As Low As Reasonably Achievable) /Image Gently techniques. FINDINGS: I. CT chest: CARDIOVASCULAR FINDINGS: AORTIC VALVULAR COMPLEX AND OTHER CARDIAC FINDINGS: Interpreted by cardiology service. EXTRACARDIAC FINDINGS: Expiration images chest. No pneumothorax. Small bilateral pleuraleffusions. Dependent groundglass opacities and interlobular septalthickening. Aortic valve prosthesis. Atherosclerotic thoracic aorta.Possible ascending thoracic aortic graft repair. Prominent mediastinallymph nodes measuring up to 1.4 cm. Right hilar lymph node measuring up to1.6 cm. Prominent right subclavicular lymph node measuring up to 0.[address] abdomen/pelvis: VASCULAR FINDINGS: Abdominal aorta:Atherosclerotic abdominal aorta without aneurysm orstenosis. Celiac artery, superior mesenteric artery, and inferior mesentericartery:Atherosclerosis. Right renal artery:Atherosclerosis. Left renal artery:Atherosclerosis. QUANTITATIVE MEASUREMENTS (min-max diameters) Distal aorta just above the bifurcation: 1.16.9 x 16.3 millimeters. 30% circumferential calcification. Right pelvic arteries: 1. Right common iliac artery:13.7 x 10.5 millimeters. 30% circumferentialcalcification. 2. Right external iliac artery:7.7 x 7.3 millimeters. 10% circumferentialcalcification. 3. Right common femoral artery:8.6 x 3.9 millimeters. 60% circumferentialcalcification. Left pelvic arteries: 1. Left common iliac artery:10.5 x 9.6 millimeters. 30% circumferentialcalcification. 2. Left external iliac artery:10.6 x 9.3 millimeters. 0% circumferentialcalcification. 3. Left common femoral artery:8.8 x 8.5 millimeters. 30% circumferentialcalcification. NONVASCULAR FINDINGS: Hepatomegaly. Splenomegaly. Calcified gallstones. Pancreas and adrenalglands are normal. Kidneys enhance symmetrically and promptly. Probablerenal cysts (no further follow-up recommended according consensusguidelines). No hydronephrosis. No retroperitoneal hematoma. Retroaortic left renal vein. Diverticulosiswithout diverticulitis. Normal appendix. No free air. Mesenteric edema.Small/moderate ascites. Free pelvic fluid. Distended urinary bladder. Pelvic vascular arterialcalcifications. Subcentimeter inguinal and pelvic lymph nodes. III. CT BONES: Sternotomy wires. Subcutaneous edema. Diffusely increased bone mineraldensity throughout the axial and appendicular skeleton. Multiplevertebroplasty changes in the lumbar spine. IMPRESSION: 1. Aortic valvular complex and other cardiac findings interpreted bycardiology service. 2. Pulmonary edema and small bilateral pleural effusions. 3. Hepatosplenomegaly. 4. Small/moderate ascites. 5. Anasarca. 6. Diffusely increased bone mineral density throughout the axial andappendicular skeleton. Possible renal osteodystrophy. Cannot excludemetastasis. 7. Prominent mediastinal, right hilar, and right subclavicular lymphnodes. Indeterminate etiology. Possibly reactive. 8. Cholelithiasis. 9. Distended urinary bladder. 10. Diverticulosis without diverticulitis. 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 Indication: TAVR workup History: 64-year-old male with aortic stenosis TECHNIQUE: Computed tomography was performed along the axial plane with 0.75 mm slice thickness utilizing IV administration of Isovue 370. FINDINGS: The coronary calcium score is 1610. The aortic valve calcium score is N/A. AORTIC VALVE: Valve Type: Prosthetic AV annulus: 5.9 cm2 Perimeter: 91.3 mm Average diameter: 27.5 mm Left coronary height: 20.3 mm Sinotubular junction: 42.0 mm Right coronary height: 21.2 mm Ascending aorta: 38.3 mm ADDITIONAL NON-CARDIAC STRUCTURES AND LUNGS READ BY [employer]IOLOGY [employer]LEAG[employer]. IMPRESSION: Plaque (Calcium Score): 1610. Aortic Valve Calcium Score: N/A. Electronically signed by LYRIC RAMOS M.D. 02/17/2025 4:14 PM Manjeet Cheung NP CT Final Result * XR CHEST PORTABLE (02/11/2025 12:01 PM CDT) Only the most recent of2 resultswithin the time period is included. Anatomical Region Laterality Modality Chest Radiographic Viviana ging 02/11/2025 12:2 8 PM CDT Impressions 02/11/2025 12:34 PM CDT IMPRESSION: 1. Cardiomegaly and pulmonary vascular congestion. Possible tiny right pleural effusion Ordered By: YASH HERNÁNDEZ Interpreted By: Konrad Villanueva MD, 02/11/2025 12:28 PM Narrative 02/11/2025 12:34 PM [address]T [address] [address] Examination: Chest radiograph Exam time: 02/11/2025 11:36 AM Clinical history: Pleural effusions Comparison: 02/07/2025 Technique: One view of the chest obtained. Findings: Surgical changes of median sternotomy. Cardiomegaly. Pulmonary vascular congestion. Possible tiny right pleural effusion. No definite pneumothorax. Osseous structures reveal no definite acute findings. Procedure Note Konrda Villanueva MD - 02/11/[address] [address] Examination: Chest radiograph Exam time: 02/11/2025 11:36 AM Clinical history: Pleural effusions Comparison: 02/07/2025 Technique: One view of the chest obtained. Findings: Surgical changes of median sternotomy. Cardiomegaly. Pulmonaryvascular congestion. Possible tiny right pleural effusion. No definitepneumothorax. Osseous structures reveal no definite acute findings. IMPRESSION: 1. Cardiomegaly and pulmonary vascular congestion. Possible tiny rightpleural effusion Ordered By: YASH HERNÁNDEZ Interpreted By: Konrad Villanueva MD, 02/11/2025 12:28 PM us Yash Hernández PA[facility] Final Resul t * ANTINUCLEAR ANTIBODY WI RFX (MEG) (02/09/2025 4:43 PM CDT) MEG <0.09 02/13/2025 3:37 PM CDT [facility] Comment: NEGATIVE: <0.7 RATIO MEG PROFILE AND TITER NOT PERFORMED THE MEG SCREEN TESTS FOR THE FOLLOWING ANTIBODIES BY EIA: SSA1 (RO), SSB1 (LA), SIN, SCL70, JO1, CENTROMERE, TIP PRINTER HISTONE MUST BE ORDERED SEPARATELY DNA (DS) ANTIBODY 0.8 IU/ML 025 3:37 PM CDT [facility] Comment: NEGATIVE: <10 IU/mL EQUIVOCAL: 10 to 15 IU/mL POSITIVE: >15 IU/mL THIS QUANTITATIVE ASSAY IS CALIBRATED TO THE [employer]'S WO/80 STANDARD. THE LEVEL OF dsDNA AUTOANTIBODY GERERALLY CORRELATES WITH THE LEVEL OF DISEASE ACTIVITY IN SYSTEMIC LUPUS ERYTHMATOSUS 02/09/2025 4:43 PM CDT Robel Judd MD LABORATORY Final Result [facility] [address] [place] [address], [place] [phone] [id number] * ANTI-SMOOTHMUSCLE AB: (02/09/2025 4:43 PM CDT) ACTIN (SMOOTH MUSCLE) AB <20 <20 U 02/15/2025 9:11 PM CDT [employer] KATTY AUGUSTIN Comment: Reference Range: <20 U: Negative >or=20 U: Positive Antibodies recognizing actin are the main component of smooth muscle antibodies associated with auto- immune liver disease. Actin antibodies are found in approximately 75% of patients with autoimmune hepatitis (AIH) type 1, approximately 65% of patients with autoimmune cholangitis, approximately 30% of patients with primary biliary cirrhosis and approximately 2% of healthy controls. High values are closely correlated with AIH type 1. Test Performed by [facility], [address] [place], [place] Andrew Mitchell M.D., Ph.D., Director of Laboratories , [facility] [id number] 02/09/2025 4:43 PM CDT Robel Judd MD LABORATORY Final Result Performing Organization Address City/[facility]/ZIP Co de Phone Number [facility] [address] [place], [place] , [place] [phone] * ANTI-MITOCHONDRIAL AB: (02/09/2025 4:43 PM CDT) ANTI-MITOCHONDRI AL AB Negative Negative 02/20/2025 9:22 PM CDT [facility] Comment: Test Performed by [facility], [employer], [address] [place], [place] Andrew Mitchell M.D., Ph.D., Director of Laboratories , [facility] [id number] 02/09/2025 4:43 PM CDT Robel Judd MD LABORATORY Final Result Performing Organization Address [facility]/ZIP Co de Phone Number [employer] [facility] [address] [place], [place] , [place] [phone] * (ABNORMAL) IRON SAT PANEL (IRON,IBC,%SAT) (02/09/2025 4:43 PM CDT) Only the most recent of2 resultswithin the time period is included. IRON 59(L) 65.0 - 175.0 MCG/DL 02/09/2025 5:18 PM CDT [facility] IRON BINDING CAPACITY 187(L) 250 - 450 MCG/DL 02/09/2025 5:18 PM CDT [facility] IRON SATURATION 32 20 - 55 % 5:18 PM CDT [facility] 02/09/2025 4:43 PM CDT Robel Judd MD LABORATORY Final Result [facility] [address] [place] [address], [place] [phone] * FERRITIN (02/09/2025 4:43 PM CDT) Only the most recent of2 resultswithin the time period is included. FERRITIN 292.6 8.0 - 388.0 NG/ML 02/09/2025 5:17 PM CDT [facility] 02/09/2025 4:43 PM CDT us Robel Judd MD LABORATORY Final Result [facility] [address] [place] [address], [place] [phone] * GI PANEL PCR - STOOL (02/08/2025 5:35 PM CDT) CAMPYLOBACTER PCR (STOOL) NOT DETECTED NOT DETECTED 02/08/2025 7:36 PM CDT [facility] PLESIOMONAS SHIGELLOIDES PCR (STOOL) NOT DETECTED NOT DETECTED 02/08/2025 7:36 PM CDT [facility] SALMONELLA PCR (STOOL) NOT DETECTED NOT DETECTED 02/08/2025 7:36 PM CDT [facility] VIBRIO PCR (STOOL) NOT DETECTED NOT DETECTED 02/08/2025 7:36 PM CDT [facility] VIBRIO CHOLERAE PCR (STOOL) NOT DETECTED NOT DETECTED 02/08/2025 7:36 PM CDT [facility] YERSINIA ENTEROCOLITICA PCR (STOOL) NOT DETECTED NOT DETECTED 02/08/2025 7:36 PM CDT [facility] ENTEROAGGREGATIVE ECOLI PCR (STOOL) NOT DETECTED NOT DETECTED 02/08/2025 7:36 PM CDT [facility] ENTEROPATHOGENIC ECOLI PCR (STOOL) NOT DETECTED NOT DETECTED 02/08/2025 7:36 PM CDT [facility] ENTEROTOXIGENIC ECOLI PCR (STOOL) NOT DETECTED NOT DETECTED 02/08/2025 7:36 PM CDT [facility] SHIGA LIKE TOXIN ECOLI PCR (STOOL) NOT DETECTED NOT DETECTED 02/08/2025 7:36 PM CDT [facility] SHIG/ENTEROINVASIVE ECOLI PCR (STOOL) NOT DETECTED NOT DETECTED 02/08/2025 7:36 PM CDT [facility] CRYPTOSPORIDIUM PCR (STOOL) NOT DETECTED NOT DETECTED 02/08/2025 7:36 PM CDT [facility] CYCLOSPORA CAYETANENSIS PCR (STOOL) NOT DETECTED NOT DETECTED 02/08/2025 7:36 PM CDT [facility] ENTAMOEBA HISTOLYTICA PCR (STOOL) NOT DETECTED NOT DETECTED 02/08/2025 7:36 PM CDT [facility] GIARDIA LAMBLIA PCR (STOOL) NOT DETECTED NOT DETECTED 02/08/2025 7:36 PM CDT [facility] ADENOVIRUS F40/41 PCR (STOOL) NOT DETECTED NOT DETECTED 02/08/2025 7:36 PM CDT [facility] ASTROVIRUS PCR (STOOL) NOT DETECTED NOT DETECTED 02/08/2025 7:36 PM CDT [facility] NOROVIRUS GI/GII PCR (STOOL) NOT DETECTED NOT DETECTED 02/08/2025 7:36 PM CDT [facility] ROTAVIRUS A PCR (STOOL) NOT DETECTED NOT DETECTED 02/08/2025 7:36 PM CDT [facility] SAPOVIRUS PCR (STOOL) NOT DETECTED NOT DETECTED 02/08/2025 7:36 PM CDT [facility] STOOL SPECIMEN / Unknown 02/08/2025 5:35 PM CDT us Abigail Martin [employer] [facility] MICROBIOLOGY - GENERAL RY SILVESTRE Final Result [facility] [address] [place] [address], * OCCULT BLOOD, FECES (02/08/2025 5:35 PM CDT) OCCULT BLOOD FECAL NEGATIVE NEGATIVE 02/08/2025 6:36 PM CDT [facility] STOOL SPECIMEN / Unknown 02/08/2025 5:35 PM CDT Abigail Dhara Mario [employer]IC[employer] BILLER BODY FLUIDS AND STOOLS ORDE RABLES Final Result Performing Organization Address City/[facility]/ZIP Co de Phone Number [facility] [address] [place] [address], [place] [phone] * HAPTOGLOBIN, QUANT (02/08/2025 3:33 PM CDT) HAPTOGLOBIN 30.9 30.0 - 200.0 MG/DL 02/08/2025 4:44 PM CDT [facility] 02/08/2025 3:33 PM CDT Manjeet Cheung NP LABORATORY Final Result Performing Organization Address [facility] Co de Phone Number [facility] [address] [place] [address], [place] [phone] * (ABNORMAL) LDH, LACTATE DEHYDROGENASE (02/08/2025 3:33 PM CDT) Only the most recent of3 resultswithin the time period is included. LDH 450(H) 87 - 241 UNITS/L 02/08/2025 4:22 PM CDT [facility] 02/08/2025 3:33 PM CDT us Manjeet Cheung NP LABORATORY Final Result Performing Organization Address City/[facility] Co de Phone Number [facility] [address] [place] [address], [place] [phone] * US GD PARACENT W IMAGING (02/08/2025 3:12 PM CDT) Anatomical Region Laterality Modality Ultrasound 02/08/2025 2:13 PM CDT Impressions 02/08/2025 4:04 PM CDT =====IMPRESSION:===== 1. Moderate ascites 2. Procedure note for right abdominal approach paracentesis performed with ultrasound guidance. 3. Total 3770 ml fluid removed. 4. No immediate complication Ordered By: MANJEET CHEUNG Interpreted By: Milind Espana MD, 02/08/2025 2:13 PM Narrative 02/08/2025 4:04 PM [address]T [address] [address] Examination: Ultrasound-guided paracentesis with imaging Exam date/time: 02/08/2025 1:23 PM Reason For Exam: 64 male. Paracentesis. Volume overload. 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 Comparison: CT chest abdomen pelvis 01/28/2025 Technique: Informed verbal and written consent was obtained from the patient/patient's medical decision maker caregiver. The details of procedure were discussed, including all applicable risks, benefits and alternatives. Patient expressed understanding and wished to proceed. Initial survey ultrasound performed documenting the presence of moderate. A timeout was performed. A right upper quadrant skin access site was chosen with ultrasound guidance, and prepped and draped. Sterile ultrasound technique, including hand wash with soap and water, was employed for the procedure.1% lidocaine was administered for local anesthesia and the skin and deeper soft tissues down to the peritoneum. A small skin incision was made through which a 6 German QA on Request one-step catheter was advanced under ultrasound guidance through the abdominal wall into the peritoneal cavity. Fluid was returned. The inner stylet was removed and the catheter attached to tubing attached to serial vacuum containers via a three-way stopcock, allowing withdrawal of clear straw-colored ascites. Once aspiration stopped, the catheter was removed. Compression was applied and hemostasis obtained and a sterile dressing placed. The patient tolerated the procedure well with no immediate complication. Findings: Moderate ascites. There is uneventful removal of 3770 mL of fluid from the peritoneal cavity with a smaller nondrainable perihepatic ascites remaining by ultrasound of the right upper quadrant postprocedure. Procedure Note Milind Espana MD - 02/08/[address] [address] Examination: Ultrasound-guided paracentesis with imaging Exam date/time: 02/08/2025 1:23 PM Reason For Exam: 64 male. Paracentesis. Volume overload. Acute combinedCHF with severe prosthetic AVS. Comparison: CT chest abdomen pelvis 01/28/2025 Technique: Informed verbal and written consent was obtained from thepatient/patient's medical decision maker caregiver. The details ofprocedure were discussed, including all applicable risks, benefits andalternatives. Patient expressed understanding and wished to proceed. Initial survey ultrasound performed documenting the presence of moderate.A timeout was performed. A right upper quadrant skin access site waschosen with ultrasound guidance, and prepped and draped. Sterileultrasound technique, including hand wash with soap and water, wasemployed for the procedure.1% lidocaine was administered for localanesthesia and the skin and deeper soft tissues down to the peritoneum. Asmall skin incision was made through which a 6 German Yueh one-stepcatheter was advanced under ultrasound guidance through the abdominal wallinto the peritoneal cavity. Fluid was returned. The inner stylet wasremoved and the catheter attached to tubing attached to serial vacuumcontainers via a three-way stopcock, allowing withdrawal of clearstraw-colored ascites. Once aspiration stopped, the catheter was removed.Compression was applied and hemostasis obtained and a sterile dressingplaced. The patient tolerated the procedure well with no immediate complication. Findings: Moderate ascites. There is uneventful removal of 3770 mL of fluid from the peritoneal cavitywith a smaller nondrainable perihepatic ascites remaining by ultrasound ofthe right upper quadrant postprocedure. =====IMPRESSION:===== 1. Moderate ascites 2. Procedure note for right abdominal approach paracentesis performed withultrasound guidance. 3. Total 3770 ml fluid removed. 4. No immediate complication Ordered By: MANJEET CHEUNG Interpreted By: Milind Espana MD, 02/08/2025 2:13 PM Manjeet Cheung MEDICAL RECORDS CLERK ULTRASOUND Final Result * PH BODY FLUID (02/08/2025 2:25 PM CDT) Pathologist [facility] SITE ASCITIC FLUID 02/08/2025 3:45 PM CDT [facility] Fluid pH 8.0 02/08/2025 4:54 PM CDT [facility] Comment: The reference range and other method performance specifications have not been established for this assay on body fluids. The test result should be integrated into the clinical context for interpretation and utilized in comparison to blood concentrations of the analyte as appropriate. STRUCTURE OF INTRAABDOMINAL REGION / Unknown 02/08/2025 2:25 PM CDT Manjeet Cheung MEDICAL RECORDS CLERK BODY FLUIDS AND STOOLS ORDERAB LES Final Result Performing Organization Address City/[facility] Co de Phone Number [facility] [address] [place] [address], [place] [phone] * LDH BODY FLUID (02/08/2025 2:25 PM CDT) Pathologist [facility] LDH (FLUID) 122 UNITS/L 02/09/2025 8:37 AM CDT [facility] Comment:REFERENCE RANGE NOT ESTABLISHED FOR THIS BODY FLUID. SITE ASCITIC FLUID 02/08/2025 3:17 PM CDT [facility] STRUCTURE OF INTRAABDOMINAL REGION / Unknown 02/08/2025 2:25 PM CDT us Manjeet Cheung MEDICAL RECORDS CLERK BODY FLUIDS AND STOOLS ORDERAB LES Final Result [facility] [address] [place] [address], [place] [phone] [facility] [address] [place] [address], [place] [phone] * AMYLASE FLUID (02/08/2025 2:25 PM CDT) AMYLASE (BODY FLUID) 9 UNITS/L 02/09/2025 8:37 AM CDT [facility] Comment:REFERENCE RANGE NOT ESTABLISHED FOR THIS BODY FLUID. SPECIMEN SOURCE ASCITIC FLUID 02/08/2025 3:17 PM CDT [facility] STRUCTURE OF INTRAABDOMINAL REGION / Unknown 02/08/2025 2:25 PM CDT us Manjeet Cheung MEDICAL RECORDS CLERK BODY FLUIDS AND STOOLS ORDERAB LES Final Result Performing Organization Address [facility] Co de Phone Number [facility] [address] [place] [address], [place] [phone] [facility] [address] [place] [address], [place] [phone] * PROTEIN TOTAL FLUID (02/08/2025 2:25 PM CDT) PROTEIN (FLUID) 2.1 G/DL 8:37 AM CDT [facility] Comment:REFERENCE RANGE NOT ESTABLISHED FOR THIS BODY FLUID. SITE: ASCITIC FLUID 02/08/2025 3:17 PM CDT [facility] STRUCTURE OF INTRAABDOMINAL REGION / Unknown 02/08/2025 2:25 PM CDT us Manjeet Cheung MEDICAL RECORDS CLERK BODY FLUIDS AND STOOLS ORDERAB LES Final Result Performing Organization Address [facility] Co de Phone Number [facility] [address] [place] [address], [place] [phone] [facility] [address] [place] [address], [place] [phone] * CULTURE, BODY FLUID W/ GRAM STAIN (02/08/2025 2:25 PM CDT) SPEC DESCRIPTION ASCITIC FLUID 02/08/2025 3:17 PM CDT [facility] SPECIAL REQUESTS NO SPECIAL REQUEST 02/08/2025 3:17 PM CDT [facility] GRAM STAIN RESULT NO WHITE BLOOD CELLS SEEN 02/08/2025 5:27 PM CDT [facility] GRAM STAIN RESULT NO ORGANISMS SEEN 02/08/2025 5:27 PM CDT [facility] CULTURE RESULT NO GROWTH 5 DAYS 02/13/2025 7:33 AM CDT [facility] ASCITIC FLUID SPECIMEN / Unknown 02/08/2025 2:25 PM CDT 02/08/2025 3:43 PM CDT Manjeet Cheung NP MICROBIOLOGY - GENERAL ORDERAB LES Final Result [facility] [address] [place] [address], [place] [phone] * ALBUMIN URINE/BODY FLUIDS (02/08/2025 2:25 PM CDT) ALBUMIN (FLUID) 1.4 G/DL 8:37 AM CDT [facility] Comment:REFERENCE RANGE NOT ESTABLISHED FOR THIS BODY FLUID. SPECIMEN SOURCE ASCITIC FLUID 02/08/2025 3:17 PM CDT [facility] STRUCTURE OF INTRAABDOMINAL REGION / Unknown 02/08/2025 2:25 PM CDT Manjeet Cheung MEDICAL RECORDS CLERK BODY FLUIDS AND STOOLS ORDERAB LES Final Result Performing Organization Address [facility] Co de Phone Number [facility] [address] [place] [address], [place] [phone] [facility] [address] [place] [address], [place] [phone] * GLUCOSE, BODY FLUID (02/08/2025 2:25 PM CDT) GLUCOSE FLUID 97 MG/DL 02/09/2025 8:37 AM CDT [facility] Comment:REFERENCE RANGE NOT ESTABLISHED FOR THIS BODY FLUID. SOURCE (FLUID) ASCITIC FLUID 02/08/2025 3:17 PM CDT [facility] STRUCTURE OF INTRAABDOMINAL REGION / Unknown 02/08/2025 2:25 PM CDT Manjeet Cheung MEDICAL RECORDS CLERK BODY FLUIDS AND STOOLS ORDERAB LES Final Result Performing Organization Address [facility] Co de Phone Number [facility] [address] [place] [address], [place] [phone] [facility] [address] [place] [address], [place] [phone] * LACTIC ACID - SINGLE (02/08/2025 9:05 AM CDT) LACTIC ACID VENOUS 0.8 0.4 - 2.0 MMOL/L 02/08/2025 9:41 AM CDT [facility] 02/08/2025 9:05 AM CDT Manjeet Cheung MEDICAL RECORDS CLERK LABORATORY Final Result Performing Organization Address [facility] Co de Phone Number [facility] [address] [place] [address], [place] [phone] * (ABNORMAL) VITAMIN B-12 (02/08/2025 2:55 AM CDT) VITAMIN B12 S/P/B 1,611(H) 254 - 1,320 PG/ML 02/08/2025 4:29 AM CDT [facility] 02/08/2025 2:55 AM CDT Abigail Martin APRN LABORATORY Final Resul t Performing Organization Address [facility] de Phone Number [facility] [address] [place] [address], [place] [phone] * (ABNORMAL) RETICULOCYTE CT, AUTO (02/08/2025 2:55 AM CDT) RETICULOCYTE COUNT 2.6(H) 0.8 - 2.1 % 02/08/2025 3:41 AM CDT [facility] ABSOLUTE RETICULOCYTE 0.08 0.03 - 0.11 x10'6/uL 02/08/2025 3:41 AM CDT [facility] IMMATURE RETIC FRACTION 22.8(H) 2.3 - 13.4 % 02/08/2025 3:41 AM CDT [facility] RETIC HGB 30.4 28.0 - 35.0 PG 02/08/2025 3:41 AM CDT [facility] 02/08/2025 2:55 AM CDT Abigail Martin APRN LABORATORY Final Resul t Performing Organization Address City/[facility]/ZIP Co de Phone Number [facility] [address] [place] [address], [place] [phone] * HEPATITIS PANEL,ACUTE (02/08/2025 2:55 AM CDT) HEPATITIS B SURFACE AG NON-REACTI VE NON-REACTI VE 02/08/2025 5:59 AM CDT [facility] HEP B CORE IGM NON-REACTI VE NON-REACTI VE 02/08/2025 5:59 AM CDT [facility] HAV IGM NON-REACTI VE NON-REACTI VE 02/08/2025 5:59 AM CDT [facility] HEPATITIS C AB NON-REACTI VE NON-REACTI VE 02/08/2025 5:59 AM CDT [facility] 02/08/2025 2:55 AM CDT us Abigail Martin APRN LABORATORY Final Resul t Performing Organization Address City/[facility]/ZIP Co de Phone Number [facility] [address] [place] [address], [place] [phone] * FOLIC ACID SERUM (02/08/2025 2:55 AM CDT) FOLATE 4.1 3.1 - 17.5 NG/ML 02/08/2025 4:29 AM CDT [facility] 02/08/2025 2:55 AM CDT us Abigail Martin APRN LABORATORY Final Resul t [facility] [address] [place] [address], [place] [phone] * TROPONIN, QUANT (02/08/2025 2:55 AM CDT) Only the most recent of4 resultswithin the time period is included. TROPONIN I HIGH SENSITIVITY 18 <79 ng/L 02/08/2025 4:05 AM CDT [facility] Comment: HIGH DOSES OF BIOTIN, TROPONIN-SPECIFIC AUTOANTIBODIES, AND ANTIBODY THERAPY CONTAINING HAMA MAY INTERFERE WITH THIS TEST RESULT. CORRELATION TO CLINICAL HISTORY AND PRESENTATION RECOMMENDED. 02/08/2025 2:55 AM CDT Abigail Martin MEDICARE BILLER LABORATORY Final Resul t Performing Organization Address [facility] Co de Phone Number [facility] [address] [place] [address], [place] [phone] * PHOSPHORUS, INORGANIC PHOSPHATE (02/08/2025 2:55 AM CDT) PHOSPHORUS 4.3 2.5 - 4.9 MG/DL 02/08/2025 4:03 AM CDT [facility] 02/08/2025 2:55 AM CDT us Abigail Martin BLAZE LABORATORY Final Resul t Performing Organization Address [facility] Co de Phone Number [facility] [address] [place] [address], [place] [phone] * (ABNORMAL) AMMONIA (02/08/2025 2:50 AM CDT) AMMONIA 44(H) 11 - 32 UMOL/L 02/08/2025 3:51 AM CDT [facility] 02/08/2025 2:50 AM CDT us Abigail Martin MEDICARE BILLER LABORATORY Final Resul t Performing Organization Address City/[facility]/ZIP Co de Phone Number [facility] [address] [place] [address], [place] [phone] * CYTOLOGY GENERIC (02/08/2025 12:00 AM CDT) CYTOLOGY OTHER [facility] Department of Laboratory Medicine [address] [place] [address] , extension [phone] Pathology Report Non-gynecologic Cytology Report Name: FLORI LYNN Specimen #: [id number] Age: 2 1960 (Age: 64) Location: [facility] Sex: M Procedure Date: 02/08/2025 Hospital #: [id number] Date Received: 02/10/2025 Date Reported: 02/13/2025 Provider: MANJEET VARELA MD Source: PERITONEAL FLUID Clinical History: Anasarca FINAL DIAGNOSIS: PERITONEAL FLUID: -SATISFACTORY FOR EVALUATION. -NEGATIVE FOR MALIGNANT CELLS. Gross Description: SPECIMEN RECEIVED: 1800 cc's of dark yellow fluid SLIDES PREPARED: 1 ThinPrep and cell block slide(s); all slides were microscopically examined by a pathologist. STAINS: Papanicolaou, H & E Electronically Signed Out DAX GARCIA MD [facility] PLEURAL FLUID SPECIMEN / Unknown 02/08/2025 02/10/2025 8:18 AM CDT Comment:PERITONEAL FLUID us Manjeet Cheung NP PATHOLOGY/CYTOLOGY ORDERABLES Final Result [facility] [address] [place] [address], [place] [phone] * URINALYSIS (02/07/2025 11:16 PM CDT) Only the most recent of2 resultswithin the time period is included. SPECIMEN TYPE URINE CLEAN CATCH 02/07/2025 11:16 PM CDT [facility] COLOR (U) LIGHT YELLOW 02/07/2025 11:36 PM CDT [facility] TRANSPARENCY CLEAR 02/07/2025 11:36 PM CDT [facility] SPECIFIC GRAVITY (U) 1.008 1.001 - 1.030 02/07/2025 11:36 PM CDT [facility] U PH 5.0 5.0 - 9.0 02/07/2025 11:36 PM CDT [facility] LEUKOCYTES (U) NEGATIVE NEGATIVE 02/07/2025 11:36 PM CDT [facility] NITRITES NEGATIVE NEGATIVE 02/07/2025 11:36 PM CDT [facility] PROTEIN RANDOM (U) NEGATIVE <30 MG/DL 02/07/2025 11:36 PM CDT [facility] GLUCOSE (U) NORMAL NORMAL MG/DL 02/07/2025 11:36 PM CDT [facility] KETONES MG/DL (U) NEGATIVE NEGATIVE MG/DL 02/07/2025 11:36 PM CDT [facility] UROBILINOGEN NORMAL NORMAL MG/DL 02/07/2025 11:36 PM CDT [facility] BILIRUBIN (U) NEGATIVE NEGATIVE MG/DL 02/07/2025 11:36 PM CDT [facility] BLOOD (U) NEGATIVE NEGATIVE 02/07/2025 11:36 PM CDT [facility] URINE SPECIMEN OBTAINED BY CLEAN CATCH PROCEDURE / Unknown 02/07/2025 11:16 PM CDT us Abigail Martin MEDICARE BILLER URINE ORDERABLES Final Resu lt [facility] [address] [place] [address], [place] [phone] * CULTURE, BACTERIA, BLOOD (02/07/2025 10:54 PM CDT) Only the most recent of2 resultswithin the time period is included. [facility] SPEC DESCRIPTION BLOOD 02/07/2025 10:42 PM CDT [facility] SPECIAL REQUESTS NO SPECIAL REQUEST 02/07/2025 10:42 PM CDT [facility] CULTURE RESULT NO GROWTH 5 DAYS 02/12/2025 11:11 PM CDT [facility] BLOOD SPECIMEN OBTAINED FOR BLOOD CULTURE / Unknown 02/07/2025 10:54 PM CDT 02/07/2025 11:02 PM CDT us Abigail Martin APRN MICROBIOLOGY - GENERAL ORDE RABLES Final Result [facility] [address] [place] [address], [place] [phone] * PROCALCITONIN (PCT) (02/07/2025 10:35 PM CDT) [facility] PROCALCITONIN 0.32 0.00 - 0.49 NG/ML 02/07/2025 11:47 PM CDT [facility] 02/07/2025 10:3 5 PM CDT us Abigail Martin APRN LABORATORY Final Resul t [address] [address], [place] [phone] * MAGNESIUM (02/07/2025 10:35 PM CDT) Only the most recent of2 resultswithin the time period is included. [facility] MAGNESIUM 2.2 1.8 - 2.4 MG/DL 02/07/2025 11:18 PM CDT [facility] 02/07/2025 10:3 5 PM CDT us Abigail Martin MEDICARE BILLER LABORATORY Final Resul t Performing Organization Address City/[facility]/ZIP Co de Phone Number [facility] [address] [place] [address], [place] [phone] * LIPASE (02/07/2025 10:35 PM CDT) Only the most recent of2 resultswithin the time period is included. LIPASE 32 13 - 75 UNITS/L 02/07/2025 11:18 PM CDT [facility] 02/07/2025 10:3 5 PM CDT us Abigail Martin MEDICARE BILLER LABORATORY Final Resul t Performing Organization Address City/[facility]/ZIP Co de Phone Number [facility] [address] [place] [address], [place] [phone] * ETHANOL (02/07/2025 10:35 PM CDT) ALCOHOL S/P/B <0.003 <0.003 G/DL 02/07/2025 11:18 PM CDT [facility] 02/07/2025 10:3 5 PM CDT us Abigail Martin MEDICARE BILLER LABORATORY Final Resul t Performing Organization Address City/[facility]/ZIP Co de Phone Number [facility] [address] [place] [address], [place] [phone] * (ABNORMAL) CK (CPK) (02/07/2025 10:35 PM CDT) CPK 23(L) 35 - 232 U/L 02/07/2025 11:18 PM CDT [facility] 02/07/2025 10:3 5 PM CDT us Abigail Martin MEDICARE BILLER LABORATORY Final Resul t Performing Organization Address City/[facility]/ZIP Co de Phone Number [facility] [address] [place] [address], [place] [phone] * (ABNORMAL) POCT glucose (02/07/2025 10:28 PM CDT) GLUCOSE POC 136(H) 70 - 99 mg/dL 02/07/2025 10:36 PM CDT [facility] 02/07/2025 10:2 8 PM CDT Raine Love MD POCT ORDERABLES - DEVICE Fi nal Result Performing Organization Address City/[facility] Co de Phone Number [address] [address], [place] [phone] * CT CHEST+ABD+PEL WO CON (02/07/2025 6:06 PM CDT) Anatomical Region Laterality Modality Chest, Abdomen, Pelvis Computed Tomography 02/07/2025 6:33 PM CDT Impressions 02/07/2025 6:50 PM CDT IMPRESSION: Anasarca with moderate bilateral pleural effusions and moderate volume ascites, presumably cardiogenic. Ordered By: SY PAINTING Interpreted By: Yonathan Mahoney MD, 02/07/2025 6:33 PM Narrative 02/07/2025 6:50 PM CDT [address] [address] EXAMINATION: CT CHEST+ABD+PEL WO CON HISTORY: 64-year-old male with fluid overload. TECHNIQUE: Computed tomography of the chest, abdomen, and pelvis according to routine protocol. Oral Contrast: None. Intravenous Contrast: None. A dose lowering technique was used for this procedure, which may include, but is not limited to, dose reduction technique, automated exposure control, the use of iterative reconstruction, and ALARA (As Low As Reasonably Achievable) / Image Gently techniques. COMPARISON: CT abdomen and pelvis 12/01/2024. CTA chest 05/25/2023. FINDINGS: Lungs: Dependent and bibasilar compressive atelectasis. No focal consolidation. Pleura: Moderate bilateral pleural effusions. No pneumothorax. Mediastinum: Hypoattenuation of intracardiac blood pool, in keeping with an anemia. Median sternotomy wires. Aortic valve replacement. Calcifications of the thoracic aorta and coronary arteries. Mild cardiomegaly. Thoracic Lymph Nodes: No lymphadenopathy is identified. Chest Wall: Intact. Liver: Nodular contour of the liver. Biliary System: Cholelithiasis. No biliary ductal dilatation. Pancreas: Unenhanced pancreas is unremarkable. Spleen: Splenomegaly, similar compared to prior. Similar peripheral hypoattenuating infarct in the anterolateral aspect of the spleen (series 8 image 130). Adrenal Glands: Negative. Kidneys: Symmetric without hydronephrosis or urolithiasis. Bowel: Normal in caliber. Colonic diverticulosis. Mesentery, Omentum, and Peritoneum: Moderate volume ascites. No pneumoperitoneum. Pelvic Organs: Urinary bladder appears normal. Prostate gland is unremarkable. Abdominopelvic Lymph Nodes: No lymphadenopathy is identified. Abdominopelvic Vasculature: Atherosclerotic calcifications. Probable severe stenosis of the right common femoral artery (series 8 image 213), unchanged. Remaining Bones and Soft Tissues: Degenerative changes throughout the spine with prior kyphoplasty within the upper lumbar spine. Similar sclerotic appearance throughout much of the axial skeleton. Anasarca. Procedure Note Yonathan Mahoney MD - 02/07/2025 [facility] [address] [address] EXAMINATION: CT CHEST+ABD+PEL WO CON HISTORY: 64-year-old male with fluid overload. TECHNIQUE: Computed tomography of the chest, abdomen, and pelvis accordingto routine protocol. Oral Contrast: None. Intravenous Contrast: None. A dose lowering technique was used for this procedure, which may include,but is not limited to, dose reduction technique, automated exposurecontrol, the use of iterative reconstruction, and ALARA (As Low AsReasonably Achievable) / Image Gently techniques. COMPARISON: CT abdomen and pelvis 12/01/2024. CTA chest 05/25/2023. FINDINGS: Lungs: Dependent and bibasilar compressive atelectasis. No focalconsolidation. Pleura: Moderate bilateral pleural effusions. No pneumothorax. Mediastinum: Hypoattenuation of intracardiac blood pool, in keeping withan anemia. Median sternotomy wires. Aortic valve replacement.Calcifications of the thoracic aorta and coronary arteries. Mildcardiomegaly. Thoracic Lymph Nodes: No lymphadenopathy is identified. Chest Wall: Intact. Liver: Nodular contour of the liver. Biliary System: Cholelithiasis. No biliary ductal dilatation. Pancreas: Unenhanced pancreas is unremarkable. Spleen: Splenomegaly, similar compared to prior. Similar peripheralhypoattenuating infarct in the anterolateral aspect of the spleen (series8 image 130). Adrenal Glands: Negative. Kidneys: Symmetric without hydronephrosis or urolithiasis. Bowel: Normal in caliber. Colonic diverticulosis. Mesentery, Omentum, and Peritoneum: Moderate volume ascites. Nopneumoperitoneum. Pelvic Organs: Urinary bladder appears normal. Prostate gland isunremarkable. Abdominopelvic Lymph Nodes: No lymphadenopathy is identified. Abdominopelvic Vasculature: Atherosclerotic calcifications. Probablesevere stenosis of the right common femoral artery (series 8 image 213),unchanged. Remaining Bones and Soft Tissues: Degenerative changes throughout thespine with prior kyphoplasty within the upper lumbar spine. Similarsclerotic appearance throughout much of the axial skeleton. Anasarca. IMPRESSION: Anasarca with moderate bilateral pleural effusions and moderate volumeascites, presumably cardiogenic. Ordered By: SY PAINTING Interpreted By: Yonathan Mahoney MD, 02/07/2025 6:33 PM us Sy Painting MD CT Final Result * ECG 12 lead (02/07/2025 4:12 PM CDT) Only the most recent of2 resultswithin the time period is included. 02/07/2025 4:12 PM CDT Narrative [facility] - 02/08/2025 8:03 AM CDT [facility] [address] Test Date: 2025-02-07 Pat Name: FLORI MOYAWITT Department: 41 Room: A417 Gender: Male Crystal Syrup Maker: [id number] : 1960 Requested By: KASSIDY STOKES Order Number: [id number] Reading MD: Jayne Bangura Measurements Intervals Baldwin Rate: 58 P: -14 SD: 228 QRS: -3 QRSD: 122 T: 0 QT: 426 QTc: 419 Interpretive Statements SINUS BRADYCARDIA WITH FIRST DEGREE AV BLOCK POSSIBLE ANTERIOR MYOCARDIAL INFARCTION , PROBABLY OLD [30 ms Q WAVE IN V3/V4, OR R < 0.2 mV IN V4] Compared to ECG 12/01/2024 15:17:45 First degree AV block now present Myocardial infarct finding still present Procedure Note Jayne Bangura MD - 02/08/2025 [facility] [address] Test Date: 2025-02-07 Pat Name: FLORI LYNN Department: 41 Room: A417 Gender: Male Crystal Syrup Maker: [id number] : 1960 Requested By: KASSIDY STOKES Order Number: [id number] Reading NIC Bangura Measurements Intervals Baldwin Rate: 58 P: -14 SD: 228 QRS: -3 QRSD: 122 T: 0 QT: 426 QTc: 419 Interpretive Statements SINUS BRADYCARDIA WITH FIRST DEGREE AV BLOCK POSSIBLE ANTERIOR MYOCARDIAL INFARCTION , PROBABLY OLD [30 ms Q WAVE IN V3/V4, OR R < 0.2 mV IN V4] Compared to ECG 12/01/2024 15:17:45 First degree AV block now present Myocardial infarct finding still present Kassidy Stokes [facility] ECG ORDERABLES Final Resul t Performing Organization Address City/[facility]/ZIP Co de Phone Number [facility] * (ABNORMAL) PRO-BRAIN NATRIURETIC PEPTIDE (02/07/2025 3:40 PM CDT) PRO-B TYPE NATRIURETIC PEPTIDE >35,000(H ) <125 PG/ML 02/07/2025 4:45 PM CDT [facility] Comment: CUT POINTS ESTABLISHED BY [employer] ON NT PROBNP (ICON) STUDY (2006). AGE INDEPENDENT: <300 PG/ML HAS A 99% NEGATIVE PREDICTIVE VALUE FOR EXCLUDING ACUTE CHF <50 YEARS: >450 PG/ML IS CONSISTENT WITH ACUTE CHF 50-75 YEARS: >900 PG/ML IS CONSISTENT WITH ACUTE CHF >75 YEARS: >1800 PG/ML IS CONSISTENT WITH ACUTE CHF IN PATIENTS WITH RENAL INSUFFICIENCY (GFR <60), >1200 PG/ML YIELDS A DIAGNOSTIC SENSITIVITY AND SPECIFICITY OF 89% AND 72% FOR ACUTE CHF. 02/07/2025 3:40 PM CDT Kassidy Stokes [facility]ORATORY Final Resul t [facility] [address] [place] [address], [place] [phone] * THYROXINE, FREE (FT4) (02/07/2025 3:40 PM CDT) Only the most recent of2 resultswithin the time period is included. FREE T4 1.06 0.76 - 1.46 NG/DL 02/07/2025 10:03 PM CDT [facility] 02/07/2025 3:40 PM CDT Raine Love MD LABORATORY Final Resul t Performing Organization Address [facility] Co de Phone Number [facility] [address] [place] [address], * (ABNORMAL) THYROID STIM HORMONE TSH (02/07/2025 3:40 PM CDT) Only the most recent of3 resultswithin the time period is included. TSH 19.200(H) 0.358 - 3.74 uIU/ML 02/07/2025 7:18 PM CDT [facility] Comment: HIGH DOSES OF BIOTIN MAY INTERFERE WITH THIS TEST RESULT. CORRELATION TO CLINICAL HISTORY AND PRESENTATION RECOMMENDED. 02/07/2025 3:40 PM CDT Sy Painting MD LABORATORY Final Result Performing Organization Address [facility] Co de Phone Number [facility] [address] [place] [address], [place] [phone] * USV ART REST W LIGIA LOW EXT (02/07/2025 1:41 PM CDT) Anatomical Region Laterality Modality Extremity Vascular Ultraso und 02/07/2025 11:2 6 AM CDT Narrative 02/07/2025 3:07 PM CDT ARTERIAL DOPPLER - LIGIA BILATERAL LOWER EXTREMITY VASCULAR LAB Pat.Name: FLORI LYNN Pat.ID: [id number] .Date: 02/07/2025 Exam Time: 11:26:00 AM Study Type:CHAPIN VS Arterial Doppler Legs CLIVE Age: 2 1960,64Y Sex: M Sonogrphr: Santosh Price RDMS, RVT History / Clinical:femoral artery calcifcations seen on ct scan on the right side Procedures: Doppler waveforms, Digit PPG, Systolic Pressures w/LIGIA Race: W ++++++++++++++++++++++++++++++++++++ SUMMARY: ++++++++++++++++++++++++++++++++++++ [facility] LIGIA Criteria: >1.30 = falsely elevated, calcified vessels; 1.00-1.29 = no signif ischemia at rest ; .80-.99 = mild PAD, asymptomatic; .50-.79 = moderate PAD, claudication; <.50 = severe PAD, rest pain; <.30 = critical PAD, necrosis, poor healing (Digits: DBI >.60 Normal; <.60 Abnormal) (Positive Stress eval: LIGIA decrease of >.20 or >20% pressure drop) Right leg: Common Femoral waveform is biphasic, high amplitude; Popliteal biphasic, medium amplitude; Posterior Tibial biphasic, medium amplitude with LIGIA 1.17 ; DP/Anterior Tibial biphasic, medium amplitude with LIGIA 1.12 . Digit flow by PPG is medium amplitude with DBI 0.8 . Left leg: Common Femoral waveform is biphasic, medium amplitude; Popliteal biphasic, medium amplitude; Posterior Tibial biphasic, medium amplitude with LIGIA 1.28 ; DP/Anterior Tibial biphasic, medium amplitude with LIGIA 1.18 . Digit flow by PPG is medium amplitude with DBI 0.833 . CONCLUSION: LIGIA right > 1.0 with biphasic waveforms, with toe index 0.8 . LIGIA left > 1.0 with biphasic waveforms, with toe index 0.833 . ++++++++++++++++++++++++++++++++++++ MEASUREMENTS: ++++++++++++++++++++++++++++++++++++ PRESSURES Right Brachial Brach P 120 mmHg Right Ankle DP AnkleDP P 135 mmHg Right Ankle PT AnklePT P 140 mmHg Right Great Toe GreatToe P 96 mmHg Right LIGIA PT LIGIA PT 1.17 Right LIGIA DP LIGIA DP 1.12 Right TBI TBI 0.8 Left Brachial Brach P 119 mmHg Left Ankle DP AnkleDP P 142 mmHg Left Ankle PT AnklePT P 154 mmHg Left Great Toe GreatToe P 100 mmHg Left LIGIA PT LIGIA PT 1.28 Left LIGIA DP LIGIA DP 1.18 Left TBI TBI 0.833 <Electronic Signature> 02/07/2025 03:07 PM Betsy Duffy M.D. Procedure Note Betsy Duffy MD - 02/07/2025 ARTERIAL DOPPLER - LIGIA BILATERAL LOWER EXTREMITY VASCULAR LAB Pat.Name: FLORI LYNN Pat.ID: [id number] .Date: 02/07/2025 Exam Time: 11:26:00 AM Study Type:CHAPIN VS Arterial Doppler Legs CLIVE Age: 2 1960,64Y Sex: M Sonogrphr: Santosh Price RDMS, RVT History / Clinical:femoral artery calcifcations seen on ct scan on the right side Procedures: Doppler waveforms, Digit PPG, Systolic Pressures w/LIGIA Race: W ++++++++++++++++++++++++++++++++++++ SUMMARY: ++++++++++++++++++++++++++++++++++++ [facility] LIGIA Criteria: >1.30 = falsely elevated, calcified vessels; 1.00-1.29 = no signif ischemia at rest ; .80-.99 = mild PAD, asymptomatic; .50-.79 = moderate PAD, claudication; <.50 = severe PAD, rest pain; <.30 = critical PAD, necrosis, poor healing (Digits: DBI >.60 Normal; <.60 Abnormal) (Positive Stress eval: LIGIA decrease of >.20 or >20% pressure drop) Right leg: Common Femoral waveform is biphasic, high amplitude; Popliteal biphasic, medium amplitude; Posterior Tibial biphasic, medium amplitude with LIGIA 1.17 ; DP/Anterior Tibial biphasic, medium amplitude with LIGIA 1.12 . Digit flow by PPG is medium amplitude with DBI 0.8 . Left leg: Common Femoral waveform is biphasic, medium amplitude; Popliteal biphasic, medium amplitude; Posterior Tibial biphasic, medium amplitude with LIGIA 1.28 ; DP/Anterior Tibial biphasic, medium amplitude with LIGIA 1.18 . Digit flow by PPG is medium amplitude with DBI 0.833 . CONCLUSION: LIGIA right > 1.0 with biphasic waveforms, with toe index 0.8 . LIGIA left > 1.0 with biphasic waveforms, with toe index 0.833 . ++++++++++++++++++++++++++++++++++++ MEASUREMENTS: ++++++++++++++++++++++++++++++++++++ PRESSURES Right Brachial Brach P 120 mmHg Right Ankle DP AnkleDP P 135 mmHg Right Ankle PT AnklePT P 140 mmHg Right Great Toe GreatToe P 96 mmHg Right LIGIA PT LIGIA PT 1.17 Right LIGIA DP LIGIA DP 1.12 Right TBI TBI 0.8 Left Brachial Brach P 119 mmHg Left Ankle DP AnkleDP P 142 mmHg Left Ankle PT AnklePT P 154 mmHg Left Great Toe GreatToe P 100 mmHg Left LIGIA PT LIGIA PT 1.28 Left LIGIA DP LIGIA DP 1.18 Left TBI TBI 0.833 <Electronic Signature> 02/07/2025 03:07 PM Betsy Duffy M.D. us Betsy Duffy MD VASC Final Result * USV ABD PEL OR RETRO DUPLEX COMP (02/07/2025 1:41 PM CDT) Anatomical Region Laterality Modality NA Vascular Ultraso und 02/07/2025 10:4 0 AM CDT Narrative 02/07/2025 3:06 PM CDT RENAL-MESENTERIC DUPLEX IMAGING VASCULAR LAB Pat.Name: FLORI LYNN Pat.ID: [id number] .Date: 02/07/2025 Refer.: [id number] FLAQUITA REYES Exam Time: 10:40:00 AM Study Type:CHAPIN VS Renal Mesenteric Duplex CLIVE Age: 2 1960,64Y Sex: M Sonogrphr: Santosh Price RDMS, RVT History / Clinical:renal, celiac trunk and sma calcifications seen on ct scan Procedures: Lazo scale, Color Doppler imaging, Doppler Spectral Analysis Race: W ++++++++++++++++++++++++++++++++++++ SUMMARY: ++++++++++++++++++++++++++++++++++++ [facility] Renal artery Stenosis Criteria: < 60% = PSV >180 with RAR <3.5; >60% = PSV >180 with RAR >3.5; (RI >.80 = abnormal, kidney dz.) Right: The right renal artery shows no evident narrowing and normal velocities, with a RAR of 2.77 . The RI is 0.67. The right kidney appears within normal limits sonographically. The right kidney length is within normal range. Left: The left renal artery shows no evident narrowing and normal velocities, with a RAR of 1.37 . The RI is 0.69. The left kidney appears within normal limits sonographically. The left kidney length is within normal range. Renal veins are patent bilaterally. Aorta: no evident narrowing and normal waveforms. Incidental findings: Free fluid is seen surrounding the liver with the largest pocket measuring 11 cm on the right side. This is consistent with ascites. The spleen is enlarged with a small amount of free fluid seen inferiorly. CONCLUSION: 1. Right renal artery is normal with Renal/Aorta Ratio of 2.77 . Kidney size, Resistive Index suggests good kidney preservation. 2. Left renal artery is normal with Renal/Aorta Ratio of 1.37 . Kidney size, Resistive Index suggests good kidney preservation. 3. Free fluid is seen surrounding the liver with the largest pocket measuring 11 cm on the right side. This is consistent with ascites. 4. The spleen is enlarged with a small amount of free fluid seen inferiorly. Elizabeth Mesenteric artery Stenosis Criteria: Celiac Trunk: >70% = PSV >200; SMA: >70% = PSV >275 Celiac-mesenteric duplex: Aorta: The proximal abdominal aorta shows no evidence of plaque or stenosis with normal waveforms and velocities seen. Atherosclerotic wall changes are seen. Celiac trunk: Heterogeneous plaque is seen at the origin and proximal levels of the celiac trunk. The maximum velocity in the celiac trunk is 168 cm/s suggesting no significant stenosis. Hepatic artery: The proximal and mid segments of the hepatic artery were evaluated and no significant stenosis is seen. Splenic artery: The proximal and mid segments of the splenic artery were evaluated and no significant stenosis is seen. SMA: Heterogeneous plaque is seen at the origin and proximal segments of the SMA. The maximum velocity seen in the SMA is at the origin and is 270 cm/s, suggesting no significant stenosis. VIVIANA: Was not seen on this exam due to patients body habitus and bowel gas. CONCLUSION: 1. Atherosclerotic wall changes are seen in the proximal abdominal aorta, however no significant stenosis is seen. 2. The hepatic and splenic arteries are within normal limits no significant stenosis is seen. 3. Heterogeneous plaque is seen at the origin and proximal levels of the celiac trunk, however no significant stenosis is seen velocities are within normal limits. 4. Heterogeneous plaque is seen at the origin and proximal segments of the SMA, however no significant stenosis is seen velocities are within normal limits. 5. The VIVIANA was not seen. ++++++++++++++++++++++++++++++++++++ MEASUREMENTS: ++++++++++++++++++++++++++++++++++++ AO-ILIAC Left Kidney Kidney Size 9.15 cm Right Kidney Kidney Size 9.66 cm RENAL ART Right Origin Origin PSV 168 cm/s Right Prox Prox PSV 154 cm/s Right Mid Mid PSV 73.2 cm/s Right Distal Distal PSV 61.6 cm/s Right RAR RAR PSV 2.77 Left Origin Origin PSV 68 cm/s Left Prox Prox PSV 83.1 cm/s Left Mid Mid PSV 77.6 cm/s Left Distal Distal PSV 82.3 cm/s Left RAR RAR PSV 1.37 PARENCHYMA Left Lower Pole Segmental Artery Lower Pole Segm 0.65 Left Upper Pole Segmental Artery Upper Pole Segm 0.69 Right Lower Pole Segmental Artery Lower Pole Segm 0.67 Right Upper Pole Segmental Artery Upper Pole Segm 0.67 DOPPLER Supra AO Supra AO PSV 60.7 cm/s <Electronic Signature> 02/07/2025 03:06 PM Betsy Duffy M.D. Procedure Note Betsy Duffy MD - 02/07/2025 RENAL-MESENTERIC DUPLEX IMAGING VASCULAR LAB Pat.Name: FLORI LYNN BONITA Pat.ID: [id number] .Date: 02/07/2025 : [id number] FLAQUITA DELVALLEI Exam Time: 10:40:00 AM Study Type:CHAPIN VS Renal Mesenteric Duplex CLIVE Age: 2 1960,64Y Sex: M Sonogrphr: Santosh Price, JOSIAHMS, RVT History / Clinical:renal, celiac trunk and sma calcifications seen on ct scan Procedures: Lazo scale, Color Doppler imaging, Doppler Spectral Analysis Race: W ++++++++++++++++++++++++++++++++++++ SUMMARY: ++++++++++++++++++++++++++++++++++++ Elizabeth Renal artery Stenosis Criteria: < 60% = PSV >180 with RAR <3.5; >60% = PSV >180 with RAR >3.5; (RI >.80 = abnormal, kidney dz.) Right: The right renal artery shows no evident narrowing and normal velocities, with a RAR of 2.77 . The RI is 0.67. The right kidney appears within normal limits sonographically. The right kidney length is within normal range. Left: The left renal artery shows no evident narrowing and normal velocities, with a RAR of 1.37 . The RI is 0.69. The left kidney appears within normal limits sonographically. The left kidney length is within normal range. Renal veins are patent bilaterally. Aorta: no evident narrowing and normal waveforms. Incidental findings: Free fluid is seen surrounding the liver with the largest pocket measuring 11 cm on the right side. This is consistent with ascites. The spleen is enlarged with a small amount of free fluid seen inferiorly. CONCLUSION: 1. Right renal artery is normal with Renal/Aorta Ratio of 2.77 . Kidney size, Resistive Index suggests good kidney preservation. 2. Left renal artery is normal with Renal/Aorta Ratio of 1.37 . Kidney size, Resistive Index suggests good kidney preservation. 3. Free fluid is seen surrounding the liver with the largest pocket measuring 11 cm on the right side. This is consistent with ascites. 4. The spleen is enlarged with a small amount of free fluid seen inferiorly. Elizabeth Mesenteric artery Stenosis Criteria: Celiac Trunk: >70% = PSV >200; SMA: >70% = PSV >275 Celiac-mesenteric duplex: Aorta: The proximal abdominal aorta shows no evidence of plaque or stenosis with normal waveforms and velocities seen. Atherosclerotic wall changes are seen. Celiac trunk: Heterogeneous plaque is seen at the origin and proximal levels of the celiac trunk. The maximum velocity in the celiac trunk is 168 cm/s suggesting no significant stenosis. Hepatic artery: The proximal and mid segments of the hepatic artery were evaluated and no significant stenosis is seen. Splenic artery: The proximal and mid segments of the splenic artery were evaluated and no significant stenosis is seen. SMA: Heterogeneous plaque is seen at the origin and proximal segments of the SMA. The maximum velocity seen in the SMA is at the origin and is 270 cm/s, suggesting no significant stenosis. VIVIANA: Was not seen on this exam due to patients body habitus and bowel gas. CONCLUSION: 1. Atherosclerotic wall changes are seen in the proximal abdominal aorta, however no significant stenosis is seen. 2. The hepatic and splenic arteries are within normal limits no significant stenosis is seen. 3. Heterogeneous plaque is seen at the origin and proximal levels of the celiac trunk, however no significant stenosis is seen velocities are within normal limits. 4. Heterogeneous plaque is seen at the origin and proximal segments of the SMA, however no significant stenosis is seen velocities are within normal limits. 5. The VIVIANA was not seen. ++++++++++++++++++++++++++++++++++++ MEASUREMENTS: ++++++++++++++++++++++++++++++++++++ AO-ILIAC Left Kidney Kidney Size 9.15 cm Right Kidney Kidney Size 9.66 cm RENAL ART Right Origin Origin PSV 168 cm/s Right Prox Prox PSV 154 cm/s Right Mid Mid PSV 73.2 cm/s Right Distal Distal PSV 61.6 cm/s Right RAR RAR PSV 2.77 Left Origin Origin PSV 68 cm/s Left Prox Prox PSV 83.1 cm/s Left Mid Mid PSV 77.6 cm/s Left Distal Distal PSV 82.3 cm/s Left RAR RAR PSV 1.37 PARENCHYMA Left Lower Pole Segmental Artery Lower Pole Segm 0.65 Left Upper Pole Segmental Artery Upper Pole Segm 0.69 Right Lower Pole Segmental Artery Lower Pole Segm 0.67 Right Upper Pole Segmental Artery Upper Pole Segm 0.67 DOPPLER Supra AO Supra AO PSV 60.7 cm/s <Electronic Signature> 02/07/2025 03:06 PM Betsy Duffy M.D. Betsy Duffy MD [facility] Final Result * USE ECHOCARDIOGRAM (01/26/2025 10:32 AM CDT) Anatomical Region Laterality Modality Cardiac Echocardiogram 01/26/2025 9:29 AM CDT Narrative 01/28/2025 1:02 PM CDT Echocardiography Report Pat.Name: FLORI LYNN Pat.ID: [id number] St.Date: 01/26/2025 Lisa.: [id number] MARTI Pacheco EWDPROV EWDPROV Exam Time: 9:29:00 AM Study Type:ECHO WITH CARDIAC DOPPLER COMP Height: 191 cm Weight: 100 kg BSA: 2.29 m2 Age: 2 1960,64Y Sex: M BP: 112/72 HR: 52 bpm Sonogrphr: Karla Martinez [facility] Pat. Stat.:Outpatient Reason for Study:AVR. Aortic Stenosis. Dilated Ao Rt. Procedures: 2D, M-mode, Doppler, Color Flow, The study quality is technically good. Race: W ++++++++++++++++++++++++++++++++++++ SUMMARY: ++++++++++++++++++++++++++++++++++++ The left ventricular size is mild to moderately enlarged. The left ventricular systolic function is moderately depressed. Estimated left ventricular ejection fraction is 35-40%. Moderate concentric left ventricular hypertrophy. Left ventricular diastolic function is abnormal (grade 3). There is global hypokinesis with minor regional variation. The right ventricular size is mildly enlarged. Right ventricular systolic function is mildly depressed. Ascending aorta is mildly dilated, 4.1cm. Aorta effacement noted, measuring the largest at 4.8cm. Inferior vena cava shows <50% collapse with respiration consistent with elevated right atrial pressure. The peak velocity across the aortic valve measures 4.3m/sec with a peak gradient of 76mmHg and a mean gradient of 44.5mmHg. The calculated aortic valve area is 0.9cm2. Severe prosthetic aortic valve stenosis. Mild to moderate mitral regurgitation. Moderate tricuspid regurgitation. Right ventricular systolic pressure is 40-50 mmHg suggestive of mild to moderate pulmonary hypertension. Recommend structural heart clinic evaluation, and possible MARGARET. ++++++++++++++++++++++++++++++++++++ FINDINGS: ++++++++++++++++++++++++++++++++++++ LV: The left ventricular size is mild to moderately enlarged. The left ventricular systolic function is moderately depressed. Estimated left ventricular ejection fraction is 35-40%. Moderate concentric left ventricular hypertrophy. Left ventricular diastolic function is abnormal (grade 3). WM: There is global hypokinesis with minor regional variation. RV: The right ventricular size is mildly enlarged. Right ventricular systolic function is mildly depressed. IVS: No evidence of ventricular septal defect. LA: The left atrial volume is severely increased (>48 ml/M2). RA: Right atrial size is mild to moderately enlarged. IAS: Atrial septum appears intact. RY: No evidence of pericardial effusion. AO: Ascending aorta is mildly dilated, 4.1cm. Aorta effacement noted, measuring the largest at 4.8cm. SVn: Inferior vena cava is moderately enlarged. Inferior vena cava shows <50% collapse with respiration consistent with elevated right atrial pressure. AV: The peak velocity across the aortic valve measures 4.3m/sec with a peak gradient of 76mmHg and a mean gradient of 44.5mmHg. The calculated aortic valve area is 0.9cm2. 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 MV: Mild to moderate mitral regurgitation. No evidence of mitral stenosis. PV: No evidence of pulmonic valve stenosis. Mild pulmonic regurgitation. TV: Moderate tricuspid regurgitation. Right ventricular systolic pressure is 40-50 mmHg suggestive of mild to moderate pulmonary hypertension. No evidence of tricuspid valve stenosis. ++++++++++++++++++++++++++++++++++++ MEASUREMENTS: ++++++++++++++++++++++++++++++++++++ DOPPLER LVOT LVOTpkPG 2.8 mmHg LVOT SV 114 ml LVOT TVI 24.3 cm PSV 83 cm/s LVOTmnPG 1.5 mmHg Right Atrium RA Press 15 mmHg Major Baldwin (End 6.9 cm CO 0.5 l/min Volume (Systole 65.3 ml/m2 Cardiac ejectio 6.6 % Global Longitud 10 % Major Baldwin (End 6.2 cm HR 49 bpm Volume (Diastol 60.9 ml/m2 SV 4.3 ml/m2 Pulmonary Veins PVnpkVeld 66 cm/s PVnVs/Vd 0.48 PVnpkVels 32 cm/s PVn A Dur 211 msec AV Forward Flow AV TVI 126 cm AV pkPG 76 mmHg AV pkVel 436 cm/s (100-170)* Area (TVI) 0.9 cm2 (3-5)* AV mnPG 36.7 mmHg Area (Robbin) 0.9 cm2 (3-5)* AV Regurg Flow AV P1/2t 490 msec MV Forward Flow MV pkE 118 cm/s (60-130) MV pkA 25 cm/s PV Forward Flow PV TVI 22.6 cm PV mnPG 2 mmHg PV pkVel 110 cm/s (60-90)* PV AC 130 msec PV pkPG 4.8 mmHg RVOT RVOT TVI 15.7 cm Right Ventricul 380 millisecond AC 128 millisecond PSV 65 cm/s TV Regurg Flow TV pkPG 28.9 mmHg TV pkVel 269 cm/s (30-70)* Lat E' Lat e 9.34 cm/s Lat E/E' Lat E/e 12.6 Med E' Med e 5.53 cm/s Med E/E' Med E/e 21.3 AV Antegrade Flow AV AC/ET 0.41 Ratio of LVOT M 0.19 AC 160 millisecond Ratio of LVOT V 0.192 AV ET 394 millisecond AV Regurgitant Flow Decel Time 1673 millisecond Left Atrium CO 2.2 l/min CO 2.2 l/min Left Atrial Eje 29.7 % Left Atrial Eje 31.9 % Major Baldwin (End 6.5 cm Major Baldwin (End 6.5 cm Left Atrial ED 44.8 ml/m2 Left Atrial ED 41.7 ml/m2 Major Baldwin (End 7 cm Major Baldwin (End 7.3 cm Left Atrial ES 63.7 ml/m2 Left Atrial ES 61.2 ml/m2 Global Longitud 7.9 % Global Longitud 14.5 % HR 51 bpm HR 49 bpm SV 18.9 ml/m2 SV 19.5 ml/m2 LA Biplane CO 2.4 l/min Left Atrial ES 63.5 ml/m2 Left Atrial Eje 32.9 % Global Longitud 11.2 % Major Baldwin (End 6.5 cm HR 51 bpm Left Atrial ED 42.6 ml/m2 SV 20.9 ml/m2 Major Baldwin (End 7.3 cm Left Ventricle LV IVRT 77 msec HR 57 bpm Left Ventricula 188 mmHg CO 4.4 l/min MV Pk Robbin to LV 15.9 LVEF 39.8 % CO 4.7 l/min Left Ventricle 9.8 cm LVEF 38.2 % LVEDV 97.3 ml/m2 Left Ventricle 9.7 cm Left Ventricle 8.8 cm LVEDV 100 ml/m2 LVESV 58.6 ml/m2 Left Ventricle 9.2 cm Global Longitud -11.9 % LVESV 62 ml/m2 HR 50 bpm Global Longitud -11.1 % LV Mass 68 g/m2 HR 53 bpm SV 41 ml/m2 LV Mass 89.2 g/m2 Global Longitud -12.8 % SV 33.6 ml/m2 Global Longitud -14 % CO 5.7 l/min Global Longitud -11.5 % LVEF 47.3 % Aortic Valve Cl 371 millisecond LVEDV 91.9 ml/m2 Averaged Ejecti 42 % LVESV 48.3 ml/m2 Overall Global -12.8 % Global Longitud -14 % Peak Strain Dis 75 millisecond LV Biplane CO 4.4 l/min LVESV 61.5 ml/m2 LVEF 38.3 % Global Longitud -10.9 % Left Ventricle 9.8 cm HR 51 bpm LVEDV 99.6 ml/m2 LV Mass 80.4 g/m2 Left Ventricle 9.2 cm SV 35.9 ml/m2 LV Triplane Global Longitud -12.3 % MV Antegrade Flow Mitral Valve A 0.21 MV E Decel time 210 millisecond MV E/A 4.72 Pulmonary Artery Systolic Pulmon 0.39 Pulmonary Vascu 1.88 Wood U Pulmonary Arter 43.9 mmHg Pulmonic Valve PV ET 354 millisecond PV Antegrade Flow PV AT/ET 0.37 Right Ventricle Right Ventricul 7.02 centimeters per second Right Ventricul 34.5 % Right Ventricul 20.7 square centimeters per square meter Global Longitud -15.1 % Major Baldwin (End 10.4 cm Global Longitud -19 % Major Baldwin (End 9.1 cm Global Longitud -9.9 % Right Ventricul 13.6 square centimeters per square meter HR 49 bpm RVOT Antegrade Flow Ratio of RVOT V 0.65 TV Regurgitant Flow RV Pk PG 43.9 mmHg 2D LVPW LVPWd 1.51 cm Ratios IVS Ventricular Septum IVSd 1.42 cm Left Ventricle LVIDd 5.93 cm (4.3-5.1)* LV Mass 406 gram LVIDs 4.84 cm (2-4)* Left Ventricle 0.51 Aorta Ascending Aorti 4.87 cm AO Dd 4.08 cm Inferior Vena Cava IVC Diam 3.14 cm LVOT Cardiovascular 4.71 cm2 Cardiovascular 2.45 cm Right Ventricle Major Baldwin (Astrid 8.73 cm RVIDd 3.94 cm MMODE Tricuspid Valve Tricuspid annul 1.56 cm <Electronic Signature> 01/28/2025 01:02 PM Stuart Nelson M.D. Procedure Note Stuart Nelson MD - 01/28/2025 Echocardiography Report Pat.Name: FLORI LYNN Pat.ID: [id number] .Date: 01/26/2025 Refer.: [id number] MARTI Pacheco EWDPROV EWDPROV Exam Time: 9:29:00 AM Study Type:ECHO WITH CARDIAC DOPPLER COMP Height: 191 cm Weight: 100 kg BSA: 2.29 m2 Age: 2 1960,64Y Sex: M BP: 112/72 HR: 52 bpm Sonogrphr: Karla Martinez [facility] Pat. Stat.:Outpatient Reason for Study:AVR. Aortic Stenosis. Dilated Ao Rt. Procedures: 2D, M-mode, Doppler, Color Flow, The study quality is technically good. Race: W ++++++++++++++++++++++++++++++++++++ SUMMARY: ++++++++++++++++++++++++++++++++++++ The left ventricular size is mild to moderately enlarged. The left ventricular systolic function is moderately depressed. Estimated left ventricular ejection fraction is 35-40%. Moderate concentric left ventricular hypertrophy. Left ventricular diastolic function is abnormal (grade 3). There is global hypokinesis with minor regional variation. The right ventricular size is mildly enlarged. Right ventricular systolic function is mildly depressed. Ascending aorta is mildly dilated, 4.1cm. Aorta effacement noted, measuring the largest at 4.8cm. Inferior vena cava shows <50% collapse with respiration consistent with elevated right atrial pressure. The peak velocity across the aortic valve measures 4.3m/sec with a peak gradient of 76mmHg and a mean gradient of 44.5mmHg. The calculated aortic valve area is 0.9cm2. Severe prosthetic aortic valve stenosis. Mild to moderate mitral regurgitation. Moderate tricuspid regurgitation. Right ventricular systolic pressure is 40-50 mmHg suggestive of mild to moderate pulmonary hypertension. Recommend structural heart clinic evaluation, and possible MARGARET. ++++++++++++++++++++++++++++++++++++ FINDINGS: ++++++++++++++++++++++++++++++++++++ LV: The left ventricular size is mild to moderately enlarged. The left ventricular systolic function is moderately depressed. Estimated left ventricular ejection fraction is 35-40%. Moderate concentric left ventricular hypertrophy. Left ventricular diastolic function is abnormal (grade 3). WM: There is global hypokinesis with minor regional variation. RV: The right ventricular size is mildly enlarged. Right ventricular systolic function is mildly depressed. IVS: No evidence of ventricular septal defect. LA: The left atrial volume is severely increased (>48 ml/M2). RA: Right atrial size is mild to moderately enlarged. IAS: Atrial septum appears intact. RY: No evidence of pericardial effusion. AO: Ascending aorta is mildly dilated, 4.1cm. Aorta effacement noted, measuring the largest at 4.8cm. SVn: Inferior vena cava is moderately enlarged. Inferior vena cava shows <50% collapse with respiration consistent with elevated right atrial pressure. AV: The peak velocity across the aortic valve measures 4.3m/sec with a peak gradient of 76mmHg and a mean gradient of 44.5mmHg. The calculated aortic valve area is 0.9cm2. 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 MV: Mild to moderate mitral regurgitation. No evidence of mitral stenosis. PV: No evidence of pulmonic valve stenosis. Mild pulmonic regurgitation. TV: Moderate tricuspid regurgitation. Right ventricular systolic pressure is 40-50 mmHg suggestive of mild to moderate pulmonary hypertension. No evidence of tricuspid valve stenosis. ++++++++++++++++++++++++++++++++++++ MEASUREMENTS: ++++++++++++++++++++++++++++++++++++ DOPPLER LVOT LVOTpkPG 2.8 mmHg LVOT SV 114 ml LVOT TVI 24.3 cm PSV 83 cm/s LVOTmnPG 1.5 mmHg Right Atrium RA Press 15 mmHg Major Baldwin (End 6.9 cm CO 0.5 l/min Volume (Systole 65.3 ml/m2 Cardiac ejectio 6.6 % Global Longitud 10 % Major Baldwin (End 6.2 cm HR 49 bpm Volume (Diastol 60.9 ml/m2 SV 4.3 ml/m2 Pulmonary Veins PVnpkVeld 66 cm/s PVnVs/Vd 0.48 PVnpkVels 32 cm/s PVn A Dur 211 msec AV Forward Flow AV TVI 126 cm AV pkPG 76 mmHg AV pkVel 436 cm/s (100-170)* Area (TVI) 0.9 cm2 (3-5)* AV mnPG 36.7 mmHg Area (Robbin) 0.9 cm2 (3-5)* AV Regurg Flow AV P1/2t 490 msec MV Forward Flow MV pkE 118 cm/s (60-130) MV pkA 25 cm/s PV Forward Flow PV TVI 22.6 cm PV mnPG 2 mmHg PV pkVel 110 cm/s (60-90)* PV AC 130 msec PV pkPG 4.8 mmHg RVOT RVOT TVI 15.7 cm Right Ventricul 380 millisecond AC 128 millisecond PSV 65 cm/s TV Regurg Flow TV pkPG 28.9 mmHg TV pkVel 269 cm/s (30-70)* Lat E' Lat e 9.34 cm/s Lat E/E' Lat E/e 12.6 Med E' Med e 5.53 cm/s Med E/E' Med E/e 21.3 AV Antegrade Flow AV AC/ET 0.41 Ratio of LVOT M 0.19 AC 160 millisecond Ratio of LVOT V 0.192 AV ET 394 millisecond AV Regurgitant Flow Decel Time 1673 millisecond Left Atrium CO 2.2 l/min CO 2.2 l/min Left Atrial Eje 29.7 % Left Atrial Eje 31.9 % Major Baldwin (End 6.5 cm Major Baldwin (End 6.5 cm Left Atrial ED 44.8 ml/m2 Left Atrial ED 41.7 ml/m2 Major Baldwin (End 7 cm Major Baldwin (End 7.3 cm Left Atrial ES 63.7 ml/m2 Left Atrial ES 61.2 ml/m2 Global Longitud 7.9 % Global Longitud 14.5 % HR 51 bpm HR 49 bpm SV 18.9 ml/m2 SV 19.5 ml/m2 LA Biplane CO 2.4 l/min Left Atrial ES 63.5 ml/m2 Left Atrial Eje 32.9 % Global Longitud 11.2 % Major Baldwin (End 6.5 cm HR 51 bpm Left Atrial ED 42.6 ml/m2 SV 20.9 ml/m2 Major Baldwin (End 7.3 cm Left Ventricle LV IVRT 77 msec HR 57 bpm Left Ventricula 188 mmHg CO 4.4 l/min MV Pk Robbin to LV 15.9 LVEF 39.8 % CO 4.7 l/min Left Ventricle 9.8 cm LVEF 38.2 % LVEDV 97.3 ml/m2 Left Ventricle 9.7 cm Left Ventricle 8.8 cm LVEDV 100 ml/m2 LVESV 58.6 ml/m2 Left Ventricle 9.2 cm Global Longitud -11.9 % LVESV 62 ml/m2 HR 50 bpm Global Longitud -11.1 % LV Mass 68 g/m2 HR 53 bpm SV 41 ml/m2 LV Mass 89.2 g/m2 Global Longitud -12.8 % SV 33.6 ml/m2 Global Longitud -14 % CO 5.7 l/min Global Longitud -11.5 % LVEF 47.3 % Aortic Valve Cl 371 millisecond LVEDV 91.9 ml/m2 Averaged Ejecti 42 % LVESV 48.3 ml/m2 Overall Global -12.8 % Global Longitud -14 % Peak Strain Dis 75 millisecond LV Biplane CO 4.4 l/min LVESV 61.5 ml/m2 LVEF 38.3 % Global Longitud -10.9 % Left Ventricle 9.8 cm HR 51 bpm LVEDV 99.6 ml/m2 LV Mass 80.4 g/m2 Left Ventricle 9.2 cm SV 35.9 ml/m2 LV Triplane Global Longitud -12.3 % MV Antegrade Flow Mitral Valve A 0.21 MV E Decel time 210 millisecond MV E/A 4.72 Pulmonary Artery Systolic Pulmon 0.39 Pulmonary Vascu 1.88 Wood U Pulmonary Arter 43.9 mmHg Pulmonic Valve PV ET 354 millisecond PV Antegrade Flow PV AT/ET 0.37 Right Ventricle Right Ventricul 7.02 centimeters per second Right Ventricul 34.5 % Right Ventricul 20.7 square centimeters per square meter Global Longitud -15.1 % Major Baldwin (End 10.4 cm Global Longitud -19 % Major Baldwin (End 9.1 cm Global Longitud -9.9 % Right Ventricul 13.6 square centimeters per square meter HR 49 bpm RVOT Antegrade Flow Ratio of RVOT V 0.65 TV Regurgitant Flow RV Pk PG 43.9 mmHg 2D LVPW LVPWd 1.51 cm Ratios IVS Ventricular Septum IVSd 1.42 cm Left Ventricle LVIDd 5.93 cm (4.3-5.1)* LV Mass 406 gram LVIDs 4.84 cm (2-4)* Left Ventricle 0.51 Aorta Ascending Aorti 4.87 cm AO Dd 4.08 cm Inferior Vena Cava IVC Diam 3.14 cm LVOT Cardiovascular 4.71 cm2 Cardiovascular 2.45 cm Right Ventricle Major Baldwin (Astrid 8.73 cm RVIDd 3.94 cm MMODE Tricuspid Valve Tricuspid annul 1.56 cm <Electronic Signature> 01/28/2025 01:02 PM Stuart Nelson M.D. us Zenaida Simon MEDICAL RECORDS CLERK-C ECHO Final Re sult * USV CAROTID DUPLEX CLIVE (01/26/2025 9:17 AM CDT) Anatomical Region Laterality Modality Neck Vascular Ultraso und 01/26/2025 8:22 AM CDT Narrative 01/26/2025 4:47 PM CDT CAROTID ARTERY DUPLEX IMAGING VASCULAR LAB Pat.Name: FLORI LYNN.ID: [id number] .Date: 01/26/2025 : [id number] FLAQUITA BETSY Exam Time: 8:22:00 AM Study Type:CHAPIN VS Duplex Carotid BI Height: 73 in Age: 2 1960,64Y Sex: M Sonogrphr: Santosh Price, JOSIAHMS, RVT History / Clinical:history of TIA, HTN Procedures: Lazo scale, Color Doppler imaging, Doppler Spectral Analysis Race: W ++++++++++++++++++++++++++++++++++++ SUMMARY: ++++++++++++++++++++++++++++++++++++ Right side: The right bifurcation-internal carotid artery has heterogeneous plaque. Internal carotid maximum velocity is 93 cm/s, with a ratio of 1.31 . The common carotid artery has heterogeneous plaque present. The external carotid artery has heterogeneous plaque proximally. Vertebral artery flow is antegrade. No defined ulceration noted. Left side: The left bifurcation-internal carotid artery has heterogeneous plaque. Internal carotid maximum velocity is 68 cm/s , with a ratio of 1.06 . The common carotid artery has heterogeneous plaque present. The external carotid artery has heterogeneous plaque proximally. Vertebral artery flow is antegrade. No defined ulceration noted. CONCLUSION: The right internal carotid shows heterogeneous plaque and a <50% stenosis. Right vertebral artery is antegrade. No evidence of ulceration. The left internal carotid shows heterogeneous plaque and a <50% stenosis. Left vertebral artery is antegrade. No evidence of ulceration. ++++++++++++++++++++++++++++++++++++ MEASUREMENTS: ++++++++++++++++++++++++++++++++++++ DOPPLER Right Prox CCA Prox CCA PSV 66.3 cm/s Right Dist CCA Dist CCA PSV 70.6 cm/s Right Prox ICA Prox ICA PSV 92.8 cm/s Prox ICA EDV 18 cm/s Right Mid ICA Mid ICA PSV 72.6 cm/s Mid ICA EDV 18.7 cm/s Right Dist ICA Dist ICA PSV 79.6 cm/s Dist ICA EDV 22.5 cm/s Right Prox ECA Prox ECA PSV 80.8 cm/s Right Vertebral Vertebral PSV 71.1 cm/s Right ICA/CCA RATIO ICA/CCA RATIO P 1.31 Left Prox CCA Prox CCA PSV 60.6 cm/s Left Dist CCA Dist CCA PSV 64.3 cm/s Left Prox ICA Prox ICA PSV 56.1 cm/s Prox ICA EDV 18.2 cm/s Left Mid ICA Mid ICA PSV 55.1 cm/s Mid ICA EDV 23 cm/s Left Dist ICA Dist ICA PSV 68.4 cm/s Dist ICA EDV 17.1 cm/s Left Prox ECA Prox ECA PSV 58.3 cm/s Left Vertebral Vertebral PSV 40.6 cm/s Left ICA/CCA RATIO ICA/CCA RATIO P 1.06 <Electronic Signature> 01/26/2025 04:47 PM Betsy Duffy M.D. Procedure Note Betsy Duffy MD - 01/26/2025 CAROTID ARTERY DUPLEX IMAGING VASCULAR LAB Pat.Name: FLORI LYNN Pat.ID: [id number] .Date: 01/26/2025 : [id number] FLAQUITA REYES Exam Time: 8:22:00 AM Study Type:CHAPIN VS Duplex Carotid BI Height: 73 in Age: 2 1960,64Y Sex: M Sonogrphr: Santosh Price, JOSIAHMS, RVT History / Clinical:history of TIA, HTN Procedures: Lazo scale, Color Doppler imaging, Doppler Spectral Analysis Race: W ++++++++++++++++++++++++++++++++++++ SUMMARY: ++++++++++++++++++++++++++++++++++++ Right side: The right bifurcation-internal carotid artery has heterogeneous plaque. Internal carotid maximum velocity is 93 cm/s, with a ratio of 1.31 . The common carotid artery has heterogeneous plaque present. The external carotid artery has heterogeneous plaque proximally. Vertebral artery flow is antegrade. No defined ulceration noted. Left side: The left bifurcation-internal carotid artery has heterogeneous plaque. Internal carotid maximum velocity is 68 cm/s , with a ratio of 1.06 . The common carotid artery has heterogeneous plaque present. The external carotid artery has heterogeneous plaque proximally. Vertebral artery flow is antegrade. No defined ulceration noted. CONCLUSION: The right internal carotid shows heterogeneous plaque and a <50% stenosis. Right vertebral artery is antegrade. No evidence of ulceration. The left internal carotid shows heterogeneous plaque and a <50% stenosis. Left vertebral artery is antegrade. No evidence of ulceration. ++++++++++++++++++++++++++++++++++++ MEASUREMENTS: ++++++++++++++++++++++++++++++++++++ DOPPLER Right Prox CCA Prox CCA PSV 66.3 cm/s Right Dist CCA Dist CCA PSV 70.6 cm/s Right Prox ICA Prox ICA PSV 92.8 cm/s Prox ICA EDV 18 cm/s Right Mid ICA Mid ICA PSV 72.6 cm/s Mid ICA EDV 18.7 cm/s Right Dist ICA Dist ICA PSV 79.6 cm/s Dist ICA EDV 22.5 cm/s Right Prox ECA Prox ECA PSV 80.8 cm/s Right Vertebral Vertebral PSV 71.1 cm/s Right ICA/CCA RATIO ICA/CCA RATIO P 1.31 Left Prox CCA Prox CCA PSV 60.6 cm/s Left Dist CCA Dist CCA PSV 64.3 cm/s Left Prox ICA Prox ICA PSV 56.1 cm/s Prox ICA EDV 18.2 cm/s Left Mid ICA Mid ICA PSV 55.1 cm/s Mid ICA EDV 23 cm/s Left Dist ICA Dist ICA PSV 68.4 cm/s Dist ICA EDV 17.1 cm/s Left Prox ECA Prox ECA PSV 58.3 cm/s Left Vertebral Vertebral PSV 40.6 cm/s Left ICA/CCA RATIO ICA/CCA RATIO P 1.06 <Electronic Signature> 01/26/2025 04:47 PM Betsy Duffy M.D. Result [facility] Betsy Duffy MD [facility] Final Result * OUTSIDE LAB (SCAN ORDER) (01/25/2025) 01/25/2025 [facility] Scanned SCANNING Final Resu lt * ULTRASOUND GENERIC (SCAN ORDER) (01/18/2025) Anatomical Region Laterality Modality Other 01/18/2025 [facility] Scanned SCANNING Final Resu lt * PROSTATE SPECIFIC ANTIGEN,SCREENING (12/28/2024 7:58 AM CDT) Pathologist [facility] PSA TOTAL 0.39 < OR = 2.50 ng/mL [employer] [facility] Comment: The total PSA value from this assay system is standardized against the WHO standard. The test result will be approximately 20% lower when compared to the equimolar-standardized total PSA (Nahomi Salas). Comparison of serial PSA results should be interpreted with this fact in mind. This test was performed using the Siemens chemiluminescent method. Values obtained from different assay methods cannot be used interchangeably. PSA levels, regardless of value, should not be interpreted as absolute evidence of the presence or absence of disease. 12/28/2024 7:58 AM CDT 12/28/2024 8:00 AM CDT Narrative [employer] [facility] - 12/30/2024 8:47 AM CDT FASTING:YES FASTING: YES Resulting Agency Comment Performing Organization Information: Site ID: [place] Name: [facility] Address: [address] [id number] Director: Miles Hancock MD Sandra [facility] Final Resul t [employer] [facility] [place] [place] [employer] [facility] [address] [address], [place] * (ABNORMAL) GGT, GAMMA GLUTAMYLTRANSFERASE (12/28/2024 7:58 AM CDT) Only the most recent of2 resultswithin the time period is included. [facility] GGT 90(H) 3 - 70 U/L [facility] [place] 12/28/2024 7:58 AM CDT 12/28/2024 8:00 AM CDT Narrative [facility] - 12/30/2024 8:47 AM CDT FASTING:YES FASTING: YES Resulting Agency Comment Performing Organization Information: Site ID: Name: [facility] Address: [address] [place] [id number] Director: Miles Hancock Sandra [facility] Final Resul t Performing Organization Address [facility] Co de Phone Number [facility] [place] [place] [address] [phone], * FLOW CYTOMETRY, PERIPHERAL BLD (12/03/2024 3:53 PM CDT) [facility] FLOW CYTOMETRY Results will be found in Epic under the Pathology tab.. 12/05/2024 1:19 PM CDT [facility] 12/03/2024 3:53 PM CDT Sotero Garcias DO LABORATORY Final Result Performing Organization Address City/[facility] Co de Phone Number [facility] [address] [place] [address], [phone] * MISCELLANEOUS LAB TEST (12/03/2024 3:53 PM CDT) [facility] TEST NAME: Leukemia/Lym phoma Evaluation, TEST [id number] 12/05/2024 2:49 PM CDT [facility] SPECIMEN TYPE WHOLE BLOOD EDTA AMBIENT 12/05/2024 2:49 PM CDT [facility] TEST RESULT: Flexitest 1 12/08/2024 3:12 PM CDT [employer] [facility] Comment: Flexitest 1 CLINICAL INFORMATION: NOT PROVIDED SPECIMEN TYPE: NOT PROVIDED VIABILITY: 85 % INTERPRETATION: GRANULOCYTOSIS WITH LEFT-SHIFT; 1% CD34+ BLASTS (SEE COMMENT) Granulocytes are increased with an increase in immature/left-shifted forms. However, no aberrant marker expression is noted. Myeloblasts comprise 1% of analyzed white blood cells and coexpress dim CD11c, CD13, CD34, CD38, CD117, and HLA-DR. Lymphocytes are proportionally decreased but include B cells with slight lambda light chain excess (uncertain significance), NK cells and immunophenotypically normal CD4+ and CD8+ T cells with an elevated CD4/CD8 ratio (6.7). No evidence of a clonal lymphoid expansion. COMMENT: Overall, the findings can be seen in both reactive conditions and myeloid neoplasms. Correlation with clinical history, laboratory studies, CBC data, and morphologic findings is recommended. Flow Cytometry reviewed by Greg Lee M.D. SAMPLE DESCRIPTION: The analyzed WBCs in the sample include 11% lymphocytes, 1% monocytes and 86% granulocytes. 1% display weak CD45 and low side scatter consistent with blasts. GATING STRATEGY: Granulocytes and lymphocytes were selected for analysis based on CD45 staining intensity, forward scatter and side scatter. [place] A - Granulocytes Marker Percentage CD2 0 CD3 0 CD4 0 CD5 0 CD7 0 CD8 0 CD10 71 CD11c 75 CD13 58 CD19 0 CD19+CD5+ 0 CD20 0 CD23 1 CD33 1 CD34 0 CD38 2 CD45 98 CD56+CD3- 1 CD64 1 CD117 0 HLA_DR 1 [facility] CD19+ 0 Lambda CD19+ 0 K/L Ratio NA [place] B - Lymphocytes Marker Percentage CD2 85 CD3 83 CD4 72 CD5 82 CD7 85 CD8 11 CD10 1 CD11c 6 CD13 0 CD19 6 CD19+CD5+ 1 CD20 5 CD23 2 CD33 0 CD34 0 CD38 22 CD45 100 CD56+CD3- 6 CD64 1 CD117 0 HLA_DR 8 [facility] CD19+ 1 Lambda CD19+ 2 K/L Ratio 0.50 This test was developed and its analytical performance characteristics have been determined by [employer] [facility], [place], [place]. It has not been cleared or approved by the U.S. Food and Drug Administration. This assay has been validated pursuant to the CLIA regulations and is used for clinical purposes. NUMBER OF MARKERS: 22 Test Performed by [facility] [place], [employer] [facility], [address] [place], [place] Andrew Mitchell M.D., Ph.D., Director of Laboratories , [place] [id number] 12/03/2024 3:53 PM CDT Sotero Garcias DO LABORATORY Final Result Performing Organization Address City/[facility]/ZIP Co de Phone Number [employer] [facility] [address] [place], [place] , [place] [phone] [facility] [address] [place] [address], [place] [phone] * (ABNORMAL) DIRECT BILIRUBIN (12/03/2024 3:53 PM CDT) BILIRUBIN DIRECT S/P/B 0.8(H) 0.0 - 0.20 MG/DL 12/03/2024 4:25 PM CDT [facility] 12/03/2024 3:53 PM CDT Sotero Garcias DO LABORATORY Final Result Performing Organization Address City/[facility]/ZIP Co de Phone Number [facility] [address] [place] [address], [place] [phone] * HEMOGLOBIN, GLYCATED (12/02/2024 5:35 AM CDT) HGB A1C 4.6 <5.7 % 12/02/2024 10:20 AM CDT [facility] Comment: ADA GUIDELINES 2010 5.7 TO 6.4% INCREASED RISK OF DIABETES > OR = 6.5% CONSISTENT WITH DIABETES ESTIMATED AVG GLUCOSE 85 mg/dL 12/02/2024 10:20 AM CDT [facility] 12/02/2024 5:35 AM CDT Raine Love MD LABORATORY Final Resul t [facility] [address] [place] [address], * FIBRINOGEN (12/02/2024 5:35 AM CDT) FIBRINOGEN 218 200 - 393 MG/DL 12/02/2024 7:08 AM CDT [facility] 12/02/2024 5:35 AM CDT Raine Love MD LABORATORY Final Resul t Performing Organization Address City/[facility] Co de Phone Number [facility] [address] [place] [address], [place] [phone] * CT ABD+PEL W IV CON ONLY (12/01/2024 3:41 PM CDT) Anatomical Region Laterality Modality Abdomen Computed Tomogra phy 12/01/2024 3:45 PM CDT Impressions 12/01/2024 3:52 PM CDT IMPRESSION: 1. Massive splenomegaly, new since 2020. This is indeterminate with hematologic malignancy to be excluded. 2. Small acute versus subacute splenic infarct. 3. New mild hepatomegaly. 4. No intra-abdominal lymphadenopathy. 5. Small volume ascites. 6. Colonic diverticulosis without diverticulitis. 7. Small bilateral pleural effusions. 8. Atherosclerotic vascular disease with potential high-grade stenoses of the SMA, celiac artery, right common femoral artery and bilateral renal arteries. 9. Other chronic or nonurgent findings as described above. Referred By: Interpreted By: Hernando Hensley MD, 12/01/2024 3:45 PM Narrative 12/01/2024 3:52 PM CDT [facility] [address] [place], [place] [address] EXAMINATION: CT ABD+PEL W CON CLINICAL HISTORY: Lower abdominal pain COMPARISON: 08/10/2020 DATE/TIME: 12/01/2024 3:35 PM TECHNIQUE: Multiplanar CT images of the abdomen and pelvis were obtained. IV contrast: uneventful intravenous administration of 100 mL Isovue 370. Oral contrast: None. A dose lowering technique was used for this procedure, which may include, but is not limited to, dose reduction technique, automated exposure control, the use of iterative reconstruction, and ALARA (As Low As Reasonably Achievable) / Image Gently techniques. FINDINGS: Interval calcifications and coronary artery calcifications. Mild cardiomegaly. Small bilateral pleural effusions with associated bilateral basilar atelectasis. Liver is mildly enlarged and has increased in size since 2020. The spleen is massively enlarged at 20.0 cm in length, new since 2020. There is a small area of peripheral hypoenhancement in the spleen measuring 3.5 cm greatest dimension, concerning for an acute or subacute splenic infarct. Pancreas is negative. Small amount of hyperdense material in the gallbladder, possible sludge or cholelithiasis. No evidence of cholecystitis. No bile duct dilatation. No adrenal mass. Small low-density lesion in the left kidney, too small to characterize. Kidneys are otherwise negative. Retroaortic left renal vein. Abdominal aorta is normal caliber. There is significant atherosclerotic disease at the celiac artery and SMA origins are suspected severe stenosis of the SMA origin and suspect at least moderate stenosis of the celiac artery origin. VIVIANA appears patent. Moderate to severe stenosis suspected in both renal arteries. The splenic artery appears patent. No intra-abdominal lymphadenopathy by size criteria. Bladder is unremarkable. Prostate gland is normal size. Small amount free intraperitoneal fluid, uncertain etiology. No free air. The appendix is not clearly identified but no evidence for appendicitis is seen. Portal vein, splenic vein and SMV are patent. No bowel obstruction or bowel wall thickening. There is colonic diverticulosis without evidence of acute diverticulitis suspect severe stenosis of the right common femoral artery. No acute osseous abnormality or destructive bone lesion. Old compression fractures of L1 and L2 status post vertebroplasty. There is significant low lumbar spondylosis. Procedure Note Hernando Hensley MD - 12/01/2024 [facility] [address] [place], [place] [address] EXAMINATION: CT ABD+PEL W CON CLINICAL HISTORY: Lower abdominal pain COMPARISON: 08/10/2020 DATE/TIME: 12/01/2024 3:35 PM TECHNIQUE: Multiplanar CT images of the abdomen and pelvis were obtained.IV contrast: uneventful intravenous administration of 100 mL Isovue 370.Oral contrast: None. A dose lowering technique was used for this procedure, which may include,but is not limited to, dose reduction technique, automated exposurecontrol, the use of iterative reconstruction, and ALARA (As Low AsReasonably Achievable) / Image Gently techniques. FINDINGS: Interval calcifications and coronary artery calcifications.Mild cardiomegaly. Small bilateral pleural effusions with associatedbilateral basilar atelectasis. Liver is mildly enlarged and has increasedin size since 2020. The spleen is massively enlarged at 20.0 cm inlength, new since 2020. There is a small area of peripheralhypoenhancement in the spleen measuring 3.5 cm greatest dimension,concerning for an acute or subacute splenic infarct. Pancreas isnegative. Small amount of hyperdense material in the gallbladder,possible sludge or cholelithiasis. No evidence of cholecystitis. No bileduct dilatation. No adrenal mass. Small low-density lesion in the leftkidney, too small to characterize. Kidneys are otherwise negative.Retroaortic left renal vein. Abdominal aorta is normal caliber. There issignificant atherosclerotic disease at the celiac artery and SMA originsare suspected severe stenosis of the SMA origin and suspect at leastmoderate stenosis of the celiac artery origin. VIVIANA appears patent.Moderate to severe stenosis suspected in both renal arteries. The splenicartery appears patent. No intra-abdominal lymphadenopathy by size criteria. Bladder isunremarkable. Prostate gland is normal size. Small amount free intraperitoneal fluid, uncertain etiology. No free air.The appendix is not clearly identified but no evidence for appendicitisis seen. Portal vein, splenic vein and SMV are patent. No bowelobstruction or bowel wall thickening. There is colonic diverticulosiswithout evidence of acute diverticulitis suspect severe stenosis of theright common femoral artery. No acute osseous abnormality or destructive bone lesion. Old compressionfractures of L1 and L2 status post vertebroplasty. There is significantlow lumbar spondylosis. IMPRESSION: 1. Massive splenomegaly, new since 2020. This is indeterminate withhematologic malignancy to be excluded. 2. Small acute versus subacute splenic infarct. 3. New mild hepatomegaly. 4. No intra-abdominal lymphadenopathy. 5. Small volume ascites. 6. Colonic diverticulosis without diverticulitis. 7. Small bilateral pleural effusions. 8. Atherosclerotic vascular disease with potential high-grade stenoses ofthe SMA, celiac artery, right common femoral artery and bilateral renalarteries. 9. Other chronic or nonurgent findings as described above. Referred By: Interpreted By: Hernando Hensley MD, 12/01/2024 3:45 PM Kassidy Stokes COOK SHORT ORDER CT Final Resul t * COLONOSCOPY GENERIC (SCAN ORDER) (10/04/2024) 10/04/2024 us [facility] Scanned SCANNING Final Resu lt * LIPID PANEL (04/07/2023) CHOLESTEROL 193 HDL 36 TRIGLYCERIDES 205 NON HDL CHOLESTEROL 157 LDL (CALCULATED) 125 04/07/2023 us Default History Genericprovider LABORATORY Final Result from Last 3 Months or Most Recently Relevant to Health [place] [address] [facility] MEDICARE PART A Advance Directives * Full Code (Latest Code Status on File) Date Activated Date Inactivated Comments 02/07/2025 9:02 PM 02/15/2025 2:21 PM * Full Code Date Activated Date Inactivated Comments 12/01/2024 9:20 PM 12/04/2024 4:16 PM * Full Code Date Activated Date Inactivated Comments 08/11/2020 2:04 PM 08/12/2020 3:27 PM * Full Code Date Activated Date Inactivated Comments 08/10/2020 3:55 AM 08/11/2020 2:04 PM Care Teams [employer] Relationship Specialty Start Date End Date Sandra Bashir APNP [address] [place] [id number] PCP - General NURSE PRACTITIONER 08/28/20 None, MD Caro 08/09/20 Troy Chan MD [address] [place] [address] Consulting Physician INTERVENTIONAL CARDIOLOGY 02/08/25 Stuart Nelson MD Three [facility]. ELIZABETH [address] [place] [id number] Consulting Physician CARDIOVASCULAR DISEASE 08/10/20 Joyce Berry PA [address] [facility], [address] [place] [address] [phone] Physician Software Applications Engineer PHYSICIAN MEDICAID PLAN COMPLIANCE DIRECTOR 02/10/25
--- OUTSIDE RECORDS SUMMARY | 2025-02-21 01:12 | XMS_ITS | Encounter Summary ---
Author Organization [facility] Address 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 Name Role Phone Unavailable Primary Care Provider Unavailabl e Reason for Visit * Reason Comments Medication Refill Encounter Details Date Type Department Care Team ([facility] Contact Info) Description 09/20/2018 Refill [facility] [address] [place] [address] Efren Serrano MD [address] [place] [address] [employer] [address] [place] [phone] Social History Tobacco Use Types Packs/Day Years Used Date Smoking Tobacco: Former Cigarettes Q uit: 12/23/1997 Smokeless Tobacco: Never Alcohol Use Standard Drinks/Week Comments Yes 0 (1 standard drink = 0.6 oz pur e alcohol) Sex and Gender Information Value Date Recorded Sex Assigned at Not on file 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
[2025-02-21 07:56] VITALS: BP 105/67; PULSE 81; RESP 22; TEMP 36.1; O2SAT 100; BMI 26.5
[2025-02-21 08:09] LABS: Hematocrit 27.4 % (42.0-52.0); Hemoglobin 8.8 g/dL (14.0-18.0); Immature Granulocyte Percent A 14.2 % (0-0.5); Lymphocytes Absolute Auto 1.68 K/mm3 (0.9-3.2); Mean Corpuscular HGB Conc 32.1 g/dl (32-36); Mean Corpuscular Hemoglobin 30.0 pg (26-34); Mean Corpuscular Volume 93.5 fl (80-100); Nucleated Red Blood Cells Absolute Auto 0.060 K/mm3 (0.0-0.012); Nucleated Red Blood Cells Perc 0.3 % (0.0-0.2); Platelet Count Result 521 k/mm3 (150-375); Red Blood Count 2.93 M/mm3 (4.6-6.20); White Blood Count 19.2 K/mm3 (4.5-10.0)
[2025-02-21 08:30] LABS: Anisocytosis 1+; Burr Cells Occasional; Ovalocytes Occasional; Schistocytes None Seen; Tear Drop Cells 1+
[2025-02-21 08:47] LABS: INR 1.3; Prothrombin Time 16.4 Seconds (11.1-14.7)
[2025-02-21] MEDS: fentaNYL CITRATE INJ (*CRX) 100 MCG/2 ML VIAL 50 MCG IV PUSH (09:04)
--- NOTE | 2025-02-21 09:25 | BM_PTH ---
PATIENT: Torito Lynn LOC: [facility]#:[id number] AGE/SX: 64/M ROOM: RE02/21/[address]: Efren Serrano MD : 1960 BED: DIS: 02/21/2025 SPEC #: [id number] RECD: 02/21/25 09:59 STATUS: EULOGIO REQ #: [id number] TIMOTHY: 02/21/25 09:[address]: Efren Serrano DEPT: [facility] Bone Marrow RECD BY: Rene Youssef ENTERED: 02/21/25 10:00 SP TYPE: Bone Marro OTHR DR: Sandra Bashir, RESEARCH PSYCHOLOGIST Tissues: A - Bone Marrow Aspiration B - Bone Marrow Biopsy Procedures: Unstained Slides Hematoxylin and Eosin Stain Gross and Microscopic Level 4 Bone Marrow Smear Decalcification Iron Stain
[2025-02-21 09:50] VITALS: BP 94/67; PULSE 77; RESP 22; O2SAT 100
[2025-02-21 10:05] VITALS: BP 98/66; PULSE 75; RESP 19; O2SAT 99
[2025-02-21 10:20] VITALS: BP 104/73; PULSE 77; RESP 21; O2SAT 99
[2025-02-21 10:35] VITALS: BP 107/70; PULSE 79; RESP 22; O2SAT 99
[2025-02-21 10:50] VITALS: BP 105/69; PULSE 78; RESP 17; O2SAT 98
== END 2025-02-21 11:00 | disposition home or self-care (01) ==
PROVIDERS: Radiology Diagnostic Radiology; PCP Registered Nurse; Visit Provider Internal Medicine Hematology & Oncology
DX: D72.829 Elevated white blood cell count, unspecified (principal); N28.9 Disorder of kidney and ureter, unspecified
CPT/HCPCS: 36415; 38222; 85025; 85610; 88184; 88185; 88305; 88311; 88313; 88341; 88342; A9270; J2003; J3010; J7040

== ENCOUNTER 2025-03-03 10:09 | Outpatient (CLI) | payer BC, SELFPAY ==
--- OUTSIDE RECORDS SUMMARY | 2025-03-03 10:29 | XMS_ITS | Clinical Summary ---
Author Organization [facility] Address [facility] [place] [address] Care Team Providers Care Factory Machine Computer Operator Name Role Phone Unavailable Primary Care Provider Unavailabl e Source Comments [facility],non-owned Affiliates and Associated Physician Practices is amultiple site organization consisting of ambulatory clinics and hospital sitesin [place], [place], [place] and [place]. This disclosure is being madepursuant to the Care Everywhere program and may not contain all information available regarding this patient. Last updated 18.[facility] Encounters Date Type Department Care Team Description 02/22/2025 Lab Requisition [facility] - Pathology Lab [address] [place] [address] Howard Montaño MD Illness, unspecified 02/21/2025 Lab Requisition [facility] - Pathology Lab [address] [place] [address] Howard Montaño MD Elevated white blood cell count, unspecified from Last 3 Months Social History Tobacco Use Types Packs/Day Years Used Date Smoking Tobacco: Never Assessed Sex and Gender Information Value Date Recorded Sex Assigned at Not on file 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 Gender Identity Not on file Sexual Orientation [...] on patient's age to complete this topic Procedures Procedure Name Priority Date/Time Associated Diagnosis Comments BONE MARROW BIOPSY (STL) Routine 02/21/2025 9:25 AM CDT Illness, unspecified FLOW CYTOMETRY BONE MARROW Routine 02/21/2025 9:25 AM CDT Elevated white blood cell count, unspecified from Last 3 Months Results * FLOW CYTOMETRY BONE MARROW (02/21/2025 9:25 AM CDT) Case Report Flow Cytometry Case: [id number] Authorizing Provider: Howard Montaño Collected: 02/21/2025 09:25 AM MD Faustino Ordering Location: [facility] - Received: 02/21/2025 01:41 PM Pathology Lab Pathologist: Dayanara Galan MD Specimen: Bone Marrow 02/21/2025 4:04 PM CDT [facility] Final Diagnosis Bone marrow, flow cytometry: - No clonal B-cell or increased blast population detected 02/21/2025 4:04 PM CDT [facility] at 1604 CDT Flow Cytometry Interpretation Viability: 100% B-cells: polytypic, kappa:lambda ratio 1.5:1 T-cells: not increased Blasts: not increased, ~1% of overall events A bone marrow aspirate smear prepared from the flow cytometry specimen has been reviewed for quality control technician purposes. 02/21/2025 4:04 PM [facility] Flow Cytometry Results Differential Result Comment Flow Cell Count /uL 46,200 Total Viability % 100.0 Lymphocytes % 6 Dim CD45 Region % 6 Monocytes % 3 Granulocytes % 84 02/21/2025 4:04 PM [facility] Reason for test Elevated white blood cell count, unspecified 02/21/2025 4:04 PM [facility] Client Specimen ID # [id number] 02/21/2025 4:04 PM [facility] Number of markers 10 were performed. A-2 Flow CD10 A-3 Flow CD13 A-5 Flow CD20 A-1 Flow CD5 A-4 Flow CD19 A-6 Flow CD33 A-7 Flow CD34 A-8 Flow CD45 A-9 Ewing+CD19+ A-10 Lambda+CD19+ 02/21/2025 4:04 PM [facility] Pathologist Location at [facility] 02/21/2025 4:04 PM [facility] Disclaimer Test performed at [facility], [address] [place] [address], [id number]. *The established laboratory minimum viability is 70%. [...] qualified to perform high complexity clinical testing. 02/21/2025 4:04 PM [facility] Embedded Images 4:04 PM [facility] Pathology/Cytolo gy BONE MARROW SPECIMEN / Unknown 02/21/2025 9:25 AM CDT 02/21/2025 1:41 PM CDT Howard Montaño MD LAB - PATHOLOGY/CYT OLOGY ORDERABLES Final Result [facility] [address] [phone] * BONE MARROW BIOPSY (STL) (02/21/2025 9:25 AM CDT) Case Report Bone Marrow Patholog y Report Case: [id number] Authorizing Provider: Howard Montaño Collected: 02/21/2025 09:25 AM MD Faustino Ordering Location: [facility] - Received: 02/22/2025 02:27 PM Pathology Lab Pathologist: Jimmy Avila MD Specimens: A) - Bone Marrow Clot B) - Bone Marrow Core 02/27/2025 7:13 PM CDT [facility] Final Diagnosis Bone marrow aspirate smears, clot preparation, and core biopsy: - Markedly hypercellular marrow exhibiting patchy myeloid hyperplasia, megakaryocytic hyperplasia with atypia, and myelofibrosis (see comment). 02/27/2025 7:13 PM CDT [facility] at 1703 CDT AP Comment The bone marrow biopsy shows hypercellular marrow with panmyelosis, patchy myeloid hyperplasia, megakaryocytic atypia and myelofibrosis. If the prior clinicopathologic features were consistent with essential thrombocythemia, then the current findings are indicative of myelofibrotic progression (post ET-MF). However, if the time interval between diagnosis and the current biopsy is short, then primary myelofibrosis is a consideration. Correlation with the patients presentation and history, temporal changes in laboratory parameters, imaging studies, and results of cytogenetic and molecular analysis is recommended. 02/27/2025 7:13 PM CDT [facility] Bone Marrow Aspirate Differential count: Not performed since the smears are aspicular and hemodiluted. Specimen quality: Inadequate to evaluate marrow status. The smears show mostly peripheral blood elements. Scattered hematopoietic elements are seen. Megakaryocytes are inconspicuous. No increase in myeloblasts is appreciated. Storage iron (by special stain): Cannot be assessed due to the aspicular nature of the smears. Sideroblastic iron (by special stain): No ring sideroblasts are seen. 02/27/2025 7:13 PM [facility] Bone Marrow Core Biopsy and Clot Section Description Specimen quality: Adequate. Cellularity: Hypercellular (80%). The increased cellularity is due to the presence of increased numbers of stromal cells in addition to the hematopoietic elements (panmyelosis). Trilineage Hematopoiesis: Present. Myeloid to Erythroid ratio: 3-6:1. Myeloid maturation: Patchy myeloid hyperplasia is noted. Cells of the myeloid lineage show progressive maturation. No significant increase in myeloblasts is noted (IHC stains are pending for confirmation). Erythroid maturation: Progressive maturation is observed. Megakaryocyte number: Markedly increased and seen in variably-sized clusters, with most showing atypia (large hyperlobated, multinucleated, small hypolobated). Many megakaryocytes are seen within ectatic sinusoids, indicative of underlying myelofibrosis (reticulin and trichrome stains are pending for grading). Lymphocytes: Scattered, mature appearing. Plasma cells: Scattered, mature appearing. Bone trabeculae: Many show remodeling-associated changes. Iron stain: Decreased iron stores are observed. Clot section marrow particles: Only a few, small marrow particles are seen. Clot section morphology: Similar to the core biopsy. Iron stains performed on 3 clot specimens to assess storage iron are non contributory. No ring sideroblasts are seen. 02/27/2025 7:13 PM [facility] Flow Cytometry Summary Bone marrow, flow cytometry: - No clonal B-cell or increased blast population detected 02/27/2025 7:13 PM [facility] Clinical History Leukocytosis. H/o JAK2 mutation positive myeloproliferative neoplasm (diagnosed as essential thrombocythemia on BM Bx 02/15/2024). Normal karyotype on cytogenetic analysis. 02/27/2025 7:13 PM [facility] Materials Received Received are 22 slide(s) and 4 block(s) labeled [id number] along with a copy of the outside pathology report[place] [address]. All original materials are returned to the referring institution, along with a copy of our final report. 02/27/2025 7:13 PM CDT [facility] Pathologist Location at [facility] 02/27/2025 7:13 PM CDT [facility] Disclaimer The performance characteristics of all immunohistochemical and indirect immunofluorescence stains (if any) cited in this report were determined by the Histopathology Laboratory of [facility]. Some of these tests were developed by [...] and interpreted by the attending (teaching) pathologist. 02/27/2025 7:13 PM T [facility] Addendum 1 IHC stains for CD34 and CD117 highlight a few scattered myeloblasts and occasional blast doublets (<1% of all marrow nucleated cells). Mast cells (CD117+) are mildly increased. A CD61 stain confirms the markedly increased and atypical megakaryocytes and highlights the presence of a few small/dwarf forms, in addition to the large hyperlobated megakaryocytes, as well as the sinusoidal localization of many megakaryocytes. A reticulin stain shows mild to moderate fibrosis (MF - 1-2+/3) and trace collagen fibrosis is seen with a trichrome stain. No change in diagnosis. 02/27/2025 7:13 PM T [facility] Addendum electronically signed by Jimmy Avila MD on 02/27/2025 at 1913 CDT Embedded Images 02/27/2025 7:13 PM CDT [facility] Pathology/Cytology BONE MARROW SPECIMEN / Unknown 02/21/2025 9:25 AM CDT 02/22/2025 2:27 PM CDT Miscellaneous samples (specimen) BONE MARROW SPECIMEN / Unknown 02/21/2025 9:25 AM CDT 02/22/2025 2:27 PM CDT Howard Montaño MD LAB - PATHO LOGY/CYTOLOGY ORDERABLES Edited Result - Final [facility] [address] [place] [address], [facility] [phone] from [place] [address] ANTHEM
--- OUTSIDE RECORDS SUMMARY | 2025-03-03 10:29 | XMS_ITS | Encounter Summary ---
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
--- OUTSIDE RECORDS SUMMARY | 2025-03-03 10:29 | XMS_ITS | Encounter Summary ---
Author Organization [facility] Address [address] [place], [place] [address] [address] Care Team Providers Care Skid Worker Name Role Phone Unavailable Primary Care Provider Unavailabl e Encounter Details Date Type Department Care Team (Late st Contact Info) Description 02/22/2025 Lab Requisition [facility] - Pathology Lab [address] [place] [address] Howard Montaño MD [address] [facility] [address] [place] [address] Illness, unspecified Social History Tobacco Use Types Packs/Day Years Used Date Smoking Tobacco: Never Assessed Sex and Gender Information Value Date Recorded Sex Assigned at Not on file 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 Gender Identity Not on file Sexual Orientation Not on file documented as of this encounter Plan of Treatment Not on file documented as of this encounter Procedures Procedure Name Priority Date/Time Associated Diagnosis Comments BONE MARROW BIOPSY (STL) Routine 02/21/2025 9:25 AM CDT Illness, unspecified documented in this encounter Results * BONE MARROW BIOPSY (STL) (02/21/2025 9:25 AM CDT) Case Report Bone Marrow Patholog y Report Case: [id number] Authorizing Provider: Howard Montaño Collected: 02/21/2025 09:25 AM MD Faustino Ordering Location: [facility] - Received: 02/22/2025 02:27 PM Pathology Lab Pathologist: Jimmy Avila MD Specimens: A) - Bone Marrow Clot B) - Bone Marrow Core 02/27/2025 7:13 PM CDT [facility] Final Diagnosis Bone marrow aspirate smears, clot preparation, and core biopsy: - Markedly hypercellular marrow exhibiting patchy myeloid hyperplasia, megakaryocytic hyperplasia with atypia, and myelofibrosis (see comment). 02/27/2025 7:13 PM [facility] at 1703 CDT AP [...] molecular analysis is recommended. 02/27/2025 7:13 PM [facility] Bone Marrow Aspirate Differential count: [...] ring sideroblasts are seen. 02/27/2025 7:13 PM [facility] Bone Marrow Core Biopsy and [...] ring sideroblasts are seen. 02/27/2025 7:13 PM [facility] Flow Cytometry Summary Bone marrow, flow cytometry: - No clonal B-cell or increased blast population detected 02/27/2025 7:13 PM [facility] Clinical History Leukocytosis. H/o JAK2 mutation positive myeloproliferative neoplasm (diagnosed as essential thrombocythemia on BM Bx 02/15/2024). Normal karyotype on cytogenetic analysis. 02/27/2025 7:13 PM [facility] Materials Received Received are 22 slide(s) and 4 block(s) labeled [id number] along with a copy of the outside pathology report. [place] [address]. All original materials are returned to the referring institution, along with a copy of our final report. 02/27/2025 7:13 PM [facility] Pathologist Location at [facility] 02/27/2025 7:13 PM [facility] Disclaimer The performance characteristics of all immunohistochemical and indirect immunofluorescence stains (if any) cited in this report were determined by the Histopathology Laboratory of [facility]. Some of these tests were developed [...] the attending (teaching) pathologist. 02/27/2025 7:13 PM [facility] Addendum 1 IHC stains [...] No change in diagnosis. 02/27/2025 7:13 PM CDT [facility] Addendum electronically signed by Jimmy Avila MD on 02/27/2025 at 1913 CDT Embedded Images 02/27/2025 7:13 PM CDT [facility] Pathology/Cytology BONE MARROW SPECIMEN / Unknown 02/21/2025 9:25 AM CDT 02/22/2025 2:27 PM CDT Miscellaneous samples (specimen) BONE MARROW SPECIMEN / Unknown 02/21/2025 9:25 AM CDT 02/22/2025 2:27 PM CDT Howard Montaño MD LAB - PATHO LOGY/CYTOLOGY ORDERABLES Edited Result - Final [facility] [address] [facility] [place] [address], [facility] [phone] documented in this encounter Visit Diagnoses Diagnosis Illness, unspecified documented in this encounter
--- OUTSIDE RECORDS SUMMARY | 2025-03-03 10:29 | XMS_ITS | Encounter Summary ---
Author Organization [facility] Address [address] [place], [place] [address] [address] Care Team Providers Care Urban Designer Name Role Phone Unavailable Primary Care Provider Unavailabl e Encounter Details Date Type Department Care Team (Late st Contact Info) Description 02/12/2024 Lab Requisition [facility] - [facility]ology Lab [address] [place] [address] Howard Montaño MD [address] [facility] [address] [place] [address] Illness, unspecified Social History Tobacco Use Types Packs/Day Years Used Date Smoking Tobacco: Never Assessed Sex and Gender Information Value Date Recorded Sex Assigned at Not on file 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 There are no significantly increased fibrosis, and no increased blasts. Clinical correlation, and correlation with pending ancillary studies recommended. 02/15/2024 2:09 PM [facility] Bone Marrow Aspirate Severely hemodiluted with no spicules. Scattered trilineage hematopoiesis are seen with maturation. There are no increased blasts. 02/15/2024 2:09 PM [facility] Bone Marrow Core Biopsy and [...] No ring sideroblasts seen. 02/15/2024 2:09 PM [facility] Flow Cytometry Summary Bone marrow, flow cytometric immunophenotypic analysis ([id number]): - No diagnostic evidence of clonal B-cells or expanded T-cells, or acute leukemia. 02/15/2024 2:09 PM [facility] Clinical History 63-year-old male with history of JAK2 positive myeloproliferative neoplasm/essential thrombocythemia. 02/15/2024 2:09 PM [facility] Materials Received Received are 18 slide(s) and 3 Blocks labeled [id number] along with a copy of the outside pathology report. [place] [address]. All original materials are returned to the referring institution, along with a copy of our final report. 02/15/2024 2:09 PM T [facility] Pathologist Location at [facility] 02/15/2024 2:09 PM CDT [facility] Disclaimer The performance characteristics of all immunohistochemical and indirect immunofluorescence stains (if any) cited in this report were determined by the Histopathology Laboratory of [facility]. Some of these tests were developed [...] attending (teaching) pathologist. 02/15/2024 2:09 PM CDT [facility] Embedded Images 02/15/2024 2:09 PM CDT [facility] Pathology/Cytology BONE MARROW SPECIMEN / Unknown 02/11/2024 10:05 AM CDT 02/12/2024 2:37 PM CDT Miscellaneous samples (specimen) BONE MARROW SPECIMEN / Unknown 02/11/2024 10:05 AM CDT 02/12/2024 2:37 PM CDT Howard Montaño MD LAB - PATHOLOGY/CYT OLOGY ORDERABLES Final Result [facility] [address] [place] [address], [facility] [phone] documented in this encounter Visit Diagnoses Diagnosis Illness, unspecified documented in this encounter
--- OUTSIDE RECORDS SUMMARY | 2025-03-03 10:29 | XMS_ITS | Encounter Summary ---
Author Organization [facility] Address [address] [place], [place] [address] [address] Care Team Providers Care Biomedical Manager Name Role Phone Unavailable Primary Care Provider Unavailabl e Encounter Details Date Type Department Care Team (Late st Contact Info) Description 02/21/2025 Lab Requisition [facility] - Pathology Lab [address] [place] [address] Howard Montaño MD [address] [facility] [address] [place] [id number] Elevated white blood cell count, unspecified Social History Tobacco Use Types Packs/Day Years Used Date Smoking Tobacco: Never Assessed Sex and Gender Information Value Date Recorded Sex Assigned at Not on file 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 Gender Identity Not on file Sexual Orientation Not on file documented as of this encounter Plan of Treatment Not on file documented as of this encounter Procedures Procedure Name Priority Date/Time Associated Diagnosis Comments FLOW CYTOMETRY BONE MARROW Routine 02/21/2025 9:25 AM CDT Elevated white blood cell count, unspecified documented in this encounter Results * FLOW CYTOMETRY BONE MARROW (02/21/2025 9:25 AM CDT) Case Report Flow Cytometry Case: [id number] Authorizing Provider: Howard Montaño Collected: 02/21/2025 09:25 AM MD Faustino Ordering Location: [facility] - Received: 02/21/2025 01:41 PM Pathology Lab Pathologist: Dayanara Galan MD Specimen: Bone Marrow 02/21/2025 4:04 PM CDT [facility] PATHOLOGY [facility] Final Diagnosis Bone marrow, flow cytometry: - No clonal B-cell or increased blast population detected 02/21/2025 4:04 PM [facility] PATHOLOGY LAB at 1604 CDT Flow Cytometry Interpretation Viability: 100% B-cells: polytypic, kappa:lambda ratio 1.5:1 T-cells: not increased Blasts: not increased, ~1% of overall events A bone marrow aspirate smear prepared from the flow cytometry specimen has been reviewed for nurse quality purposes. 02/21/2025 4:04 PM [facility] PATHOLOGY LAB Flow Cytometry Results Differential Result Comment Flow Cell Count /uL 46,200 Total Viability % 100.0 Lymphocytes % 6 Dim CD45 Region % 6 Monocytes % 3 Granulocytes % 84 02/21/2025 4:04 PM [facility] PATH[facility] LAB Reason for test Elevated white blood cell count, unspecified 02/21/2025 4:04 PM [facility] PATH[facility] Client Specimen ID # [id number] 02/21/2025 4:04 PM [facility] PATH[facility] LAB Number of markers 10 were performed. A-2 Flow CD10 A-3 Flow CD13 A-5 Flow CD20 A-1 Flow CD5 A-4 Flow CD19 A-6 Flow CD33 A-7 Flow CD34 A-8 Flow CD45 A-9 Bucoda+CD19+ A-10 Lambda+CD19+ 02/21/2025 4:04 PM [facility] PATH[facility] LAB Pathologist Location at [facility] 02/21/2025 4:04 PM [facility] PATHOLOG[facility] LAB Disclaimer Test performed at [facility], [address] [place] [address], [id number]. *The established laboratory minimum viability is 70%. [...] high complexity clinical testing. 02/21/2025 4:04 PM [facility] PATHOLOGY LAB Embedded Images 4:04 PM CDT [facility] PATHOLOGY LAB Pathology/Cytolo gy BONE MARROW SPECIMEN / Unknown 02/21/2025 9:25 AM CDT 02/21/2025 1:41 PM CDT Howard Montaño MD LAB - PATHOLOGY/CYT OLOGY ORDERABLES Final Result Performing Organization Address City/State/[facility] Co de Phone Number [facility] PATHOLOGY LAB [address] [phone] documented in this encounter Visit Diagnoses Diagnosis Elevated white blood cell count, unspecified documented in this encounter
--- OUTSIDE RECORDS SUMMARY | 2025-03-03 10:29 | XMS_ITS | Encounter Summary ---
Author Organization [facility] Address [address] [place], [place] [address] [address] Care Team Providers Care Press Cleaner Name Role Phone Unavailable Primary Care Provider Unavailabl e Encounter Details Date Type Department Care Team (Late st Contact Info) Description 02/11/2024 Lab Requisition [facility] - Pathology Lab [address] [place] [address] Howard Montaño MD [address] [facility] [address] [place] [address] Elevated white blood cell count, unspecified Social History Tobacco Use Types Packs/Day Years Used Date Smoking Tobacco: Never Assessed Sex and Gender Information Value Date Recorded Sex Assigned at Not on file 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 - See interpretation. 02/11/2024 2:39 PM [facility] PATHOLOGY LAB at 1439 CDT Flow Cytometry Interpretation Viability: 100% B-cells: Rare, polytypic, kappa:lambda ratio 0.76:1 T-cells: Present based on CD5 expression, and not further characterized Blasts: Rare detected, 1.6%, express CD34, CD33, CD13; negative for CD10, CD19, and CD20 Plasma cells: No significant population detected A bone marrow aspirate smear prepared from the flow cytometry specimen has been reviewed for data quality consultant purposes. 02/11/2024 2:39 PM [facility] PATHOLOGY LAB Flow Cytometry Results Differential Result Comment Flow Cell Count /uL 16,800 Total Viability % 100.0 Lymphocytes % 6 Dim CD45 Region % 6 Monocytes % 3 Granulocytes % 85 02/11/2024 2:39 PM [facility] PATHOLOGY LAB Reason for test Elevated white blood cell count, unspecified 02/11/2024 2:39 PM [facility] PATHOLOGY LAB Client Specimen ID # [id number] 02/11/2024 2:39 PM [facility] PATHOLOGY LAB Number of markers 10 were performed. A-2 Flow CD10 A-3 Flow CD13 A-5 Flow CD20 A-1 Flow CD5 A-4 Flow CD19 A-6 Flow CD33 A-7 Flow CD34 A-8 Flow CD45 A-9 Rawlings+CD19+ A-10 Lambda+CD19+ 02/11/2024 2:39 PM [facility] PATHOLOGY LAB Pathologist Location at [facility] 02/11/2024 2:39 PM [facility] PATHOLOGY LAB Disclaimer Test performed at [facility], [address] [place] [address], [id number]. *The established laboratory minimum viability is 70%. [...] complexity clinical testing. 02/11/2024 2:39 PM CDT [facility] Embedded Images 2:39 PM CDT [facility] Pathology/Cytolo gy BONE MARROW SPECIMEN / Unknown 02/11/2024 10:05 AM CDT 02/11/2024 11:59 AM CDT Howard Montaño MD LAB - PATHOLOGY/CYT OLOGY ORDERABLES Final Result [facility] [address] [place], [place] [id number] [place] [address] documented in this encounter Visit Diagnoses Diagnosis Elevated white blood cell count, unspecified documented in this encounter
--- OUTSIDE RECORDS SUMMARY | 2025-03-03 10:29 | XMS_ITS | Clinical Summary ---
Author Organization 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
--- OUTSIDE RECORDS SUMMARY | 2025-03-03 10:29 | XMS_ITS | Clinical Summary ---
Author Organization [facility] Address [address], [facility] [address] [place] [address] Phone Care Team Providers Care Manager Of Software Name Role Phone Sandra Bashir APRN, CNP Primary Care Provider + Sotero Garcias DO Unavailable [phone] Encounters Date Type Department Care Team Description 01/25/2025 Telephone [facility] [address] [address] Sotero Garcias, from Last 3 [...] patient's age to complete this [place] [address] MEDICARE [facility] Care Teams Manager Of Software Relationship Specialty Start Date End Date Sandra Bashir APRN, QUALITY CONTROL LAB TECHNICIAN [address] [place] [phone] PCP - General Family Medicine 12/02/24 Sotero Garcias DO [address] [place] [phone] Consulting Physician Oncology 12/05/24
[2025-03-03 13:43] LABS: Iron 66 ug/dL (49-181)
[2025-03-03 14:03] LABS: Percent Iron Saturation 29 % (20-50)
[2025-03-03 14:24] LABS: Ferritin 244.00 ng/mL (11.1-264)
[2025-03-03 14:48] LABS: Vitamin B12 995.0 pg/mL (239-931)
== END 2025-03-03 10:10 | disposition home or self-care (01) ==
LOC: ANHLAB 10:10
PROVIDERS: Visit Provider Internal Medicine Hematology & Oncology
DX: E11.22 Type 2 diabetes mellitus with diabetic chronic kidney disease (principal); N18.9 Chronic kidney disease, unspecified
CPT/HCPCS: 36415; 82607; 82728; 82746; 83540; 83550

== ENCOUNTER 2025-04-04 10:52 | Outpatient (CLI) | payer BC, SELFPAY ==
[2025-04-04 11:15] LABS: Hematocrit 24.8 % (42.0-52.0); Hemoglobin 8.0 g/dL (14.0-18.0); Mean Corpuscular HGB Conc 32.3 g/dl (32-36); Mean Corpuscular Hemoglobin 30.0 pg (26-34); Mean Corpuscular Volume 92.9 fl (80-100); Platelet Count Result 372 k/mm3 (150-375); Red Blood Count 2.67 M/mm3 (4.6-6.20); White Blood Count 8.5 K/mm3 (4.5-10.0)
[2025-04-04 11:21] LABS: Blood Urea Nitrogen 42 mg/dL (8-26); Carbon Dioxide 20 mmol/L (22-30); Chloride 103 mmol/L (98-109); Estimated Glomerular Filt Rate 41; Glucose 73 mg/dL (70-105); Ionized Calcium (POC) 1.26 mmol/L (1.11-1.31); Potassium 5.1 mmol/L (3.5-4.9); Sodium 133 mmol/L (138-146)
== END 2025-04-04 10:53 | disposition home or self-care (01) ==
LOC: ANHLAB 10:53
PROVIDERS: PCP Registered Nurse; Visit Provider Internal Medicine Hematology & Oncology
DX: D45 Polycythemia vera (principal)
CPT/HCPCS: 36415; 80047; 85027